=== PATIENT | male | born 1955 | race Caucasian/White ===

== ENCOUNTER → 2016-10-30 | Outpatient (REF) | payer MEDICARE ==
[~2016-10-30] MED LIST: AMBI5TAB PO; ASPI81CH PO; CLAR10CA3 PO; CLON1TAB PO; HYDR-3291 PO; HYDR5TAB59 PO; IBUP200C PO; LEXA1TAB2 PO; LYRI150C PO; METAXALONE PO; OMEP40CA2 PO; OXYC20TA21 PO; PRED5TA PO; TESTPOW5 IM; TIZA4CAP3 PO
== END ==
LOC: M SFHCPLAZ 11:46
PROVIDERS: ATTEND Nurse Practitioner Family
DX: R53.83 Other fatigue (principal); Z53.9 Procedure and treatment not carried out, unspecified reason

== ENCOUNTER → 2016-10-30 | Outpatient (CLI) | payer MEDICARE ==
[2016-10-30 14:23] LABS: FOLATE > 24.0 NG/ML; VITAMIN B12 LEVEL 550 PG/ML
[2016-10-30 14:24] LABS: ANION GAP 7 MEQ/L (8-16); BLOOD UREA NITROGEN 20 MG/DL (7-18); CARBON DIOXIDE LEVEL 36 MEQ/L (21-32); CHLORIDE LEVEL 99 MEQ/L (98-107); CREATININE FOR GFR 1.15 MG/DL (0.70-1.30); FREE T4 1.15 NG/DL (0.76-1.46); GLOMERULAR FILTRATION RATE > 60.0 (>56); GLUCOSE, FASTING 59 MG/DL (70-105); POTASSIUM SERUM 4.7 MEQ/L (3.5-5.1); SODIUM LEVEL 142 MEQ/L (136-145)
== END ==
LOC: M LAB 13:16
PROVIDERS: ATTEND Nurse Practitioner Family
DX: R53.83 Other fatigue (principal); R14.0 Abdominal distension (gaseous); L60.3 Nail dystrophy; Z79.82 Long term (current) use of aspirin; Z79.891 Long term (current) use of opiate analgesic; Z79.899 Other long term (current) drug therapy
CPT/HCPCS: 36415; 80048; 82306; 82607; 82746; 84439; 84443; G0463

== ENCOUNTER → 2016-11-26 | Outpatient (CLI) | payer MEDICARE ==
--- NOTE | 2016-11-30 09:38 | DEXA ---
AP SPINE L1 - L4 1.199 0.0 0.7 LT FEMUR TOTAL 0.848 -1.3 -0.8 RT FEMUR TOTAL 0.824 -1.5 -0.9 TOTAL BODY TOTAL OTHER DUAL FEMUR FRAX* ASSESSMENT Risk factors: Family history of hip fracture, steroids. 10 year probability of fracture Major osteoporotic fracture 29.4 % Hip fracture 3.0 % COMMENTS: Normal bone densitometry of the spine. There is low bone density of the left hip. There is low bone density of the right hip. FOLLOW-UP: Recommendation for the next bone density exam: 2 years. HORTENCIA
== END ==
LOC: M WHC 13:02
PROVIDERS: ATTEND Internal Medicine Endocrinology, Diabetes & Metabolism
DX: Z51.81 Encounter for therapeutic drug level monitoring (principal); Z79.52 Long term (current) use of systemic steroids

== ENCOUNTER → 2017-01-21 | Outpatient (REF) | payer MEDICARE ==
[~2017-01-21] MED LIST changes: +CARV25TA PO; +DESI25TA59 PO; +HYDR-3713 PO; +HYDR-3719 PO; +METH5TA PO; +SKEL-29 PO
[2017-01-21 12:12] LABS: BASO % 0.2 % (0.0-1.0); EOS # 0.1 K/mm3 (0.0-0.50); EOS % 1.1 % (0.0-3.0); LARGE UNSTAINED CELL # 0.1 K/mm3 (0.0-0.4); LARGE UNSTAINED CELL % 0.9 % (0.0-4.0); LYMPH # 1.3 K/mm3 (1.5-4.5); LYMPH % 10.9 % (24.0-44.0); MEAN CORPUSCULAR HEMOGLOBIN 32.6 pg (27.0-33.0); MEAN CORPUSCULAR VOLUME 95.9 fl (80.0-96.0); MONO # 0.6 K/mm3 (0.0-0.8); MONO % 5.6 % (0.0-5.0); NEUTROPHILS # 8.8 K/mm3 (1.8-7.7); NEUTROPHILS % 81.3 % (36.0-66.0); PLATELET COUNT, AUTOMATED 192 k/mm3 (150-450); WHITE BLOOD COUNT 10.9 K/mm3 (4.0-10.0)
[2017-01-21 12:30] LABS: ANION GAP 3 MEQ/L (8-16); BLOOD UREA NITROGEN 21 MG/DL (7-18); CALCIUM LEVEL 8.8 MG/DL (8.5-10.1); CARBON DIOXIDE LEVEL 32 MEQ/L (21-32); CHLORIDE LEVEL 103 MEQ/L (98-107); CREATININE FOR GFR 0.89 MG/DL (0.70-1.30); GLOMERULAR FILTRATION RATE > 60.0 (>56); GLUCOSE, FASTING 96 MG/DL (70-105); POTASSIUM SERUM 4.8 MEQ/L (3.5-5.1); SODIUM LEVEL 138 MEQ/L (136-145)
== END ==
LOC: M SFHCPLAZ 08:11
PROVIDERS: ATTEND Nurse Practitioner Family
DX: G47.33 Obstructive sleep apnea (adult) (pediatric) (principal)
CPT/HCPCS: 36415; 80048; 85025; G0463

== ENCOUNTER → 2017-01-28 | Day surgery (SDC) | payer MEDICARE ==
[~2017-01-28] VITALS: Ht 172.7 cm; Wt 80.3 kg
[~2017-01-28] MED LIST changes: +LIDOCAINE 2% INJ 100 MG/5 ML SDV (FOR ANES.) As Ordered ONE; +LR 1,000 ML IV ONE; +PROPOFOL 200 MG/20 ML VIAL As Ordered ONE
--- NOTE | 2017-01-29 08:23 | RO ---
DATE OF PROCEDURE: 01/28/2017 PREPROCEDURE DIAGNOSIS: Sleep apnea. POSTPROCEDURE DIAGNOSIS: Sleep apnea. PROCEDURE: Drug induced sleep apnea. SURGEON: Dr. Jacobo Reyes. CLAIMS ASSOCIATE: ANESTHESIA: ESTIMATED BLOOD LOSS: Under general anesthesia with Propofol, patient was examined with a flexible fiberoptic nasopharyngoscope. I passed the scope through the nose into the nasopharynx. There was anterior posterior collapse of the nasopharynx. With deeper levels of sleep and with desaturation occurring, the epiglottis started approximately in the posterior wall of the pharynx and there was a bit of collapse of the base of the tongue. With further desaturation, there was more of a circumferential collapse in the hypopharynx. Patient tolerated the procedure well. Patient was transferred to the recovery room in excellent condition.
== END | disposition home or self-care (01) ==
LOC: M SDC 11:37
PROVIDERS: ATTEND Otolaryngology
DX: G47.33 Obstructive sleep apnea (adult) (pediatric) (principal); J34.2 Deviated nasal septum; I10 Essential (primary) hypertension; M54.9 Dorsalgia, unspecified; G89.29 Other chronic pain; I51.9 Heart disease, unspecified; E27.40 Unspecified adrenocortical insufficiency; K21.9 Gastro-esophageal reflux disease without esophagitis; R29.898 Other symptoms and signs involving the musculoskeletal system; F84.0 Autistic disorder; F32.9 Major depressive disorder, single episode, unspecified; Z79.899 Other long term (current) drug therapy; Z79.82 Long term (current) use of aspirin; Z98.890 Other specified postprocedural states

== ENCOUNTER → 2017-02-01 | Outpatient (CLI) | payer MEDICARE ==
[~2017-02-01] MED LIST changes: -LIDOCAINE 2% INJ 100 MG/5 ML SDV (FOR ANES.) As Ordered ONE; -LR 1,000 ML IV ONE; -PROPOFOL 200 MG/20 ML VIAL As Ordered ONE
[2017-02-01 10:41] LABS: ALBUMIN 3.5 GM/DL (3.2-5.2); ALBUMIN/GLOBULIN RATIO 1.17 (1.00-1.93); ALKALINE PHOSPHATASE 57 U/L (45-117); ALT/SGPT 29 U/L (12-78); ANION GAP 2 MEQ/L (8-16); AST/SGOT 12 U/L (15-37); BILIRUBIN,TOTAL 0.9 MG/DL (0.2-1.0); BLOOD UREA NITROGEN 15 MG/DL (7-18); CALCIUM LEVEL 8.4 MG/DL (8.5-10.1); CARBON DIOXIDE LEVEL 35 MEQ/L (21-32); CHLORIDE LEVEL 102 MEQ/L (98-107); GLOMERULAR FILTRATION RATE > 60.0 (>56); GLUCOSE, FASTING 94 MG/DL (70-105); POTASSIUM SERUM 4.6 MEQ/L (3.5-5.1); SODIUM LEVEL 139 MEQ/L (136-145); TOTAL PROTEIN 6.5 GM/DL (6.4-8.2)
== END ==
LOC: M LAB 09:09
DX: M85.80 Other specified disorders of bone density and structure, unspecified site (principal)

== ENCOUNTER → 2017-03-26 | Outpatient (CLI) | payer MEDICARE ==
[2017-03-26 12:27] LABS: ALBUMIN 3.8 GM/DL (3.2-5.2); ALBUMIN/GLOBULIN RATIO 1.23 (1.00-1.93); ALKALINE PHOSPHATASE 47 U/L (45-117); ALT/SGPT 34 U/L (12-78); ANION GAP 2 MEQ/L (8-16); AST/SGOT 18 U/L (15-37); BILIRUBIN,TOTAL 1.1 MG/DL (0.2-1.0); BLOOD UREA NITROGEN 18 MG/DL (7-18); CALCIUM LEVEL 8.8 MG/DL (8.5-10.1); CARBON DIOXIDE LEVEL 37 MEQ/L (21-32); CHLORIDE LEVEL 103 MEQ/L (98-107); CREATININE FOR GFR 1.01 MG/DL (0.70-1.30); GLOMERULAR FILTRATION RATE > 60.0 (>56); GLUCOSE, FASTING 89 MG/DL (70-105); POTASSIUM SERUM 4.7 MEQ/L (3.5-5.1); SODIUM LEVEL 142 MEQ/L (136-145); TOTAL PROTEIN 6.9 GM/DL (6.4-8.2)
== END ==
LOC: M LAB 11:13
DX: M85.80 Other specified disorders of bone density and structure, unspecified site (principal)

== ENCOUNTER → 2017-05-25 | Outpatient (CLI) | payer MEDICARE ==
[~2017-05-25] MED LIST changes: +BACT800T5 PO; -IBUP200C PO; +IBUP200C10 PO; +LISI-542 PO; +LYRI200C PO; +NORC1TAB4 PO; +NORP10TA2 PO; -OXYC20TA21 PO; +OXYC20TA40 PO; +PERC5TAB12 PO; -SKEL-29 PO; +SKEL800T97 PO; +ZOLP10TA2 PO
--- NOTE | 2017-05-25 10:28 | REP ---
CHEST X-RAY: Two views. HISTORY: Sleep apnea. COMPARISON STUDY: December 02 2005. FINDINGS: The lungs are symmetrically aerated and clear. Pleural angles are sharp. Heart size is normal. The aorta is slightly tortuous. Pulmonary vasculature is not increased. IMPRESSION: No active disease. Signed by Augie Orantes MD 05/25/2017 11:07 A
[2017-05-25 12:47] LABS: BASO % 0.3 % (0.0-1.0); EOS % 0.6 % (0.0-3.0); LARGE UNSTAINED CELL # 0.1 K/mm3 (0.0-0.4); LARGE UNSTAINED CELL % 0.9 % (0.0-4.0); LYMPH # 1.5 K/mm3 (1.5-4.5); LYMPH % 16.9 % (24.0-44.0); MEAN CORPUSCULAR HEMOGLOBIN 32.8 pg (27.0-33.0); MEAN CORPUSCULAR HGB CONC 33.3 g/dl (32.0-36.5); MEAN CORPUSCULAR VOLUME 98.4 fl (80.0-96.0); MONO # 0.4 K/mm3 (0.0-0.8); MONO % 4.9 % (0.0-5.0); NEUTROPHILS # 6.6 K/mm3 (1.8-7.7); NEUTROPHILS % 76.4 % (36.0-66.0); PLATELET COUNT, AUTOMATED 204 k/mm3 (150-450); RED CELL DISTRIBUTION WIDTH 12.6 % (11.5-14.5); WHITE BLOOD COUNT 8.6 K/mm3 (4.0-10.0)
[2017-05-25 12:55] LABS: ALBUMIN 3.8 GM/DL (3.2-5.2); ALBUMIN/GLOBULIN RATIO 1.23 (1.00-1.93); ALKALINE PHOSPHATASE 47 U/L (45-117); ALT/SGPT 29 U/L (12-78); ANION GAP 7 MEQ/L (8-16); AST/SGOT 17 U/L (15-37); BILIRUBIN,TOTAL 1.3 MG/DL (0.2-1.0); BLOOD UREA NITROGEN 20 MG/DL (7-18); CALCIUM LEVEL 8.9 MG/DL (8.5-10.1); CARBON DIOXIDE LEVEL 31 MEQ/L (21-32); CHLORIDE LEVEL 104 MEQ/L (98-107); CREATININE FOR GFR 1.18 MG/DL (0.70-1.30); GLOMERULAR FILTRATION RATE > 60.0 (>56); GLUCOSE, FASTING 123 MG/DL (70-105); POTASSIUM SERUM 4.7 MEQ/L (3.5-5.1); SODIUM LEVEL 142 MEQ/L (136-145); TOTAL PROTEIN 6.9 GM/DL (6.4-8.2)
== END ==
LOC: M WUC 09:41
PROVIDERS: ATTEND Nurse Practitioner Family
DX: I10 Essential (primary) hypertension (principal); G47.33 Obstructive sleep apnea (adult) (pediatric)
CPT/HCPCS: 36415; 71020; 80053; 85025; 93005; 96372; G0463; J1885

== ENCOUNTER 2017-05-31 08:42 | Day surgery (SDC) | payer MEDICARE ==
[~2017-05-31] VITALS: Ht 170.2 cm; Wt 82.5 kg
[2017-05-31] VITALS (7 sets, daily range): BP systolic 124–170; BP diastolic 64–87
[~2017-05-31 08:42] MED LIST changes: -BACT800T5 PO; -LYRI200C PO; -NORC1TAB4 PO; -PERC5TAB12 PO; -ZOLP10TA2 PO
[2017-05-31] MEDS ORDERED: LR 1,000 ML IV ONE (09:00)
[2017-05-31] MEDS ORDERED: LIDOCAINE W/EPINEPHRINE 1% 20ML VIAL As Ordered ONE (10:12)
[2017-05-31] MEDS ORDERED: BUPIVACAINE HCL 0.5% 30 ML VIAL As Ordered ONE (10:12)
[2017-05-31] MEDS ORDERED: fentaNYL 100 MCG/2 ML INJECTION (J3010) As Ordered ONE ×2 (10:44→13:04)
[2017-05-31] MEDS ORDERED: MIDAZOLAM INJ 2 MG/2 ML VIAL (J2250) As Ordered ONE (10:44)
[2017-05-31] MEDS ORDERED: PHENYLephrine HCL 500 MCG/5 ML (100MCG/ML) SYRINGE (J2370) As Ordered ONE (11:08)
[2017-05-31] MEDS ORDERED: ePHEDrine SULFATE 25 MG/5 ML(5MG/ML) SYRINGE As Ordered ONE (11:08)
[2017-05-31] MEDS ORDERED: ONDANSETRON 4MG/2ML VIAL (J2405) As Ordered ONE ×2 (11:11→11:49)
[2017-05-31] MEDS ORDERED: dexameTHASONE 4 MG/ML 1ML VIAL (J1100) As Ordered ONE ×2 (11:11→11:49)
[2017-05-31] MEDS ORDERED: HYDROCORTISONE 100 MG/2 ML VIAL (J1720) As Ordered ONE (11:12)
[2017-05-31] MEDS ORDERED: PHENYLEPHRINE INJ 10MG/ML VIAL (J2370) As Ordered ONE (11:49)
[2017-05-31] MEDS ORDERED: DESFLURANE 240 ML INHALANT As Ordered ONE (11:54)
[2017-05-31] MEDS ORDERED: HYDROmorphone HCL 2 MG/ML 1ML VIAL (J1170) As Ordered ONE (12:52)
[2017-05-31] MEDS: fentaNYL 100 MCG/2 ML INJECTION (J3010) IV PRN ×4 (13:05→13:20)
[2017-05-31] MEDS ORDERED: MEPERIDINE INJ 25 MG/ML VIAL (J2175) IV PRN (13:45)
[2017-05-31] MEDS ORDERED: LR 1,000 ML IV SCH (13:45)
[2017-05-31] MEDS ORDERED: ONDANSETRON 4MG/2ML VIAL (J2405) IV PRN ×2 (13:45→20:15)
[2017-05-31] MEDS ORDERED: PERCOCET 5MG/325MG TAB PO PRN (13:45)
[2017-05-31] MEDS ORDERED: METOCLOPRAMIDE INJ 10MG/2ML VIAL (J2765) IV PRN (13:45)
[2017-05-31] MEDS ORDERED: MEPERIDINE INJ 25 MG/ML VIAL (J2175) As Ordered ONE (13:59)
[2017-05-31] MEDS ORDERED: MEPERIDINE INJ 25 MG/ML VIAL (J2175) IV ONE (14:30)
[2017-05-31] MEDS ORDERED: MORPHINE 10 MG/ML 1ML VIAL IV PRN (15:00)
[2017-05-31] MEDS: LR 1,000 ML IV SCH (15:39)
[2017-05-31] MEDS ORDERED: HYDROCORTISONE 5MG TABLET PO SCH (17:00)
[2017-05-31] MEDS: NORCO, ANEXSIA 5/325MG TABLET (HYDROcodone/ACETAMINOPHEN) PO PRN (18:19)
--- NOTE | 2017-05-31 20:18 | RO ---
DATE OF PROCEDURE: 05/31/2017 PREPROCEDURE DIAGNOSIS: Sleep apnea. POSTPROCEDURE DIAGNOSIS: Sleep apnea. OPERATIVE PROCEDURE: Laser epiglottoplasty, lateral pharyngoplasty, hyoid suspension. SURGEON: Jacobo Reyes MD MILLINERY BLOCKER: ANESTHESIA: General. DESCRIPTION OF PROCEDURE: With the patient intubated, the patient prepped and draped in the usual manner, I started first with a lateral pharyngoplasty. A Loza-Leo mouth gag was inserted. The tonsillar area was infiltrated with lidocaine and epinephrine. Using Coblator at a setting of 6 and 4 I removed the tonsils on both sides. Then, I made an incision in the posterior pillar, elevating the posterior pillar flap from the inferior superior. Once that was done then I put a #3-0 Vicryl suture and sutured the posterior pillar muscle flap just posterior to the molar on the maxilla on the left side. The same procedure was performed on the right side. Bleeding was controlled with suction cautery. Once this was done, everything looked very good. There was some papilloma on the uvula which I removed with the Coblator. Ten I removed the Loza-Leo gag. I inserted the laryngoscope using a dental guard using Aquaplast. Once this was done, I positioned it into place so I had a good view of the epiglottis. I put in some pledgets around the tube and laser tube was used during the procedure. Then using CO2 laser setting at 8 drake continuous, I did a wedge excision of the epiglottis approximately 1 cm in diameter. There was some bleeding which was controlled with laser. At the end of the procedure everything looked good and there was no bleeding. The laryngoscope was removed. Then the patient's neck was prepped and draped in the usual manner. I infiltrated with lidocaine and epinephrine. I made and incision over the hyoid and divided skin and subcutaneous tissues. I divided the platyma. I went down to the hyoid bone. I skeletonized the muscle off of the hyoid bone superiorly. Once that was done then I divided the strap muscles in the midline. I then mobilized the tissues over the superior aspect of the thyroid cartilage on both sides. I then put a suture #2-0 Prolene through the thyroid cartilage superiorly, looped it around the hyoid bone and then back down through the thyroid cartilage. This was done on both sides. Ties were placed. There was no bleeding. I closed the wound with #4-0 Vicryl and #5-0 nylon. The patient tolerated the procedure well, was extubated and transferred to the recovery room in excellent condition. HORTENCIA
[2017-05-31] MEDS: oxyCODONE 10 MG CR TAB PO PRN (20:30)
[2017-05-31] MEDS: CARVedilol 12.5 MG TAB PO SCH (20:31)
[2017-05-31] MEDS ORDERED: METHADONE 5 MG TAB (S0109) PO SCH (21:00)
[2017-05-31] MEDS: clonazePAM 0.5 MG TAB PO PRN (22:10)
[2017-06-01] VITALS: BP 161/85
[2017-06-01] MEDS: NORCO, ANEXSIA 5/325MG TABLET (HYDROcodone/ACETAMINOPHEN) PO PRN ×4 (00:09→13:54)
[2017-06-01] MEDS: LR 1,000 ML IV SCH (01:00)
[2017-06-01] MEDS ORDERED: clonazePAM 0.5 MG TAB PO ONE (04:00)
[2017-06-01 04:54] VITALS: BP 161/92
[2017-06-01] MEDS ORDERED: HYDROCORTISONE 10 MG TAB PO SCH (07:30)
[2017-06-01 08:00] VITALS: BP 163/91
[2017-06-01 08:04] VITALS: BP 163/91
[2017-06-01] MEDS: CARVedilol 12.5 MG TAB PO SCH (08:04)
[2017-06-01] MEDS: oxyCODONE 10 MG CR TAB PO PRN (08:16)
[2017-06-01] MEDS ORDERED: LISINOPRIL 5 MG TAB PO SCH (09:00)
[2017-06-01] MEDS ORDERED: ESCITALOPRAM OXALATE 10 MG TAB (LEXAPRO) PO SCH (09:00)
[2017-06-01] MEDS: clonazePAM 0.5 MG TAB PO PRN (10:00)
[2017-06-01 14:24] VITALS: BP 163/91
== END 2017-06-01 14:55 | disposition home or self-care (01) ==
LOC: M SDC 08:42 → M PED 14:30 → M SDC 06-01 14:55
PROVIDERS: ATTEND Otolaryngology
DX: G47.30 Sleep apnea, unspecified (principal)

== ENCOUNTER 2017-06-02 21:20 | Inpatient (IN) | payer MEDICARE ==
[~2017-06-02] VITALS: Ht 170.2 cm; Wt 82.3 kg
[2017-06-02] MEDS ORDERED: HYDROCORTISONE 100 MG/2 ML VIAL (J1720) IV ONE (22:00)
[2017-06-02] MEDS ORDERED: fentaNYL 100 MCG/2 ML INJECTION (J3010) IV ONE (22:00)
[2017-06-02] MEDS ORDERED: NS 1,000 ML IV ONE (22:00)
[2017-06-02] MEDS ORDERED: CLINDAMYCIN 600 MG in APPROPRIATE DILUENT 1 EA IV ONE (22:00)
[2017-06-02] MEDS ORDERED: ACETAMINOPHEN 650 MG SUPP PR ONE (22:00)
--- NOTE | 2017-06-02 22:32 | REP ---
Clinical: Sepsis. Shock. Comparison: 05/25/2017. Findings: The mediastinum and cardiac silhouette are stable and within normal limits for portable technique. The lung whitman are clear without acute consolidation, effusion, or pneumothorax. Skeletal structures are intact. Impression: No acute cardiopulmonary process appreciated. Signed by Carlos Collado MD 06/02/2017 10:23 P
[2017-06-02 22:34] LABS: INR 1.18
[2017-06-02 22:37] LABS: ALBUMIN 3.4 GM/DL (3.2-5.2); ALBUMIN/GLOBULIN RATIO 0.97 (1.00-1.93); ALKALINE PHOSPHATASE 51 U/L (45-117); ALT/SGPT 30 U/L (12-78); ANION GAP 8 MEQ/L (8-16); AST/SGOT 23 U/L (15-37); BILIRUBIN,DIRECT 0.6 MG/DL (0.0-0.2); BILIRUBIN,TOTAL 3.3 MG/DL (0.2-1.0); BLOOD UREA NITROGEN 28 MG/DL (7-18); CALCIUM LEVEL 7.8 MG/DL (8.5-10.1); CARBON DIOXIDE LEVEL 32 MEQ/L (21-32); CHLORIDE LEVEL 101 MEQ/L (98-107); CREATININE FOR GFR 1.54 MG/DL (0.70-1.30); GLOMERULAR FILTRATION RATE 49.5 (>56); GLUCOSE, FASTING 86 MG/DL (70-105); POTASSIUM SERUM 3.8 MEQ/L (3.5-5.1); SODIUM LEVEL 141 MEQ/L (136-145); TOTAL PROTEIN 6.9 GM/DL (6.4-8.2)
[2017-06-02 22:43] LABS: ADD MANUAL DIFFER YES; MEAN CORPUSCULAR HEMOGLOBIN 33.4 pg (27.0-33.0); MEAN CORPUSCULAR HGB CONC 34.7 g/dl (32.0-36.5); MEAN CORPUSCULAR VOLUME 96.1 fl (80.0-96.0); PLATELET COUNT, AUTOMATED 128 k/mm3 (150-450); RED CELL DISTRIBUTION WIDTH 12.6 % (11.5-14.5); WHITE BLOOD COUNT 13.6 K/mm3 (4.0-10.0)
[2017-06-02] MEDS ORDERED: ISOVUE-370 76% 100ML VIAL (Q9967) As Ordered ONE (22:55)
[2017-06-02 23:09] LABS: BANDS 1 % (< 11)
--- NOTE | 2017-06-02 23:40 | REPUSA ---
CT of the soft tissues of the neck . Clinical history: postoperative. Technique: Multiple axial CT images were obtained from the base of the skull to the upper thorax afte r administration of non-ionic intravenous contrast. Coronal and sagittal reconstructions were also ob tained. Findings: Postoperative surgical changes are seen in the anterior cervical soft tissues in the lower cervical region. There is an ill-defined fluid collection anterior to the hyoid bone measuring 2.7 x 2.0 cm. Scattered subcutaneous emphysema is seen in this region. The visualized paranasal sinuses ar e clear. The pterygopalatine fossa, pterygoid plates and pterygoid muscles are unremarkable. The muco sa of the naso- and oropharynx appears unremarkable. The hypopharynx and larynx show no pathology. Th e visualized osseous structures are intact. There is moderate degenerative disc disease at C5/C6 and C6/C7, with small disc osteophyte complexes and disc bulges. The airway is patent. No focal mass is a ppreciated. There is no evidence of lymphadenopathy. The thyroid gland appears unremarkable. Impression: Postoperative changes as described, including subcutaneous emphysema. Ill-defined fluid c ollection anterior to the hyoid bone. This is a nonspecific finding at this time. However, a developi ng abscess cannot be excluded. Follow-up is suggested as clinically indicated.
--- NOTE | 2017-06-02 23:40 | REPUSA ---
CT of the chest Clinical statement: postoperative changes in the neck. Technique: Multiple axial CT images were obtained from the thoracic inlet through the upper abdomen a fter a bolus administration of nonionic intravenous contrast. Coronal and sagittal reconstructions we re also obtained. No comparison is available. Findings: Postsurgical changes in the anterior lower cervical region is again noted, including subcut aneous emphysema and a ill-defined fluid collection anterior to hyoid bone. The pulmonary arteries ar e well-opacified with contrast, with no intraluminal filling defects to suggest embolism. The thoraci c aorta is unremarkable. Thyroid gland is within normal limits. There is no thoracic lymphadenopathy. There are small bilateral pleural effusions and lower lobe atelectasis. Limited imaging of the upper abdomen is unremarkable. There are no suspicious osseous lesions. Impression: 1. Ill-defined fluid collection anterior to the hyoid bone, with surrounding subcutaneous emphysema. This could represent normal postsurgical changes, although a developing abscess cannot completely be excluded. Follow-up is suggested as clinically indicated. 2. Minimal atelectasis/pleural effusion at the lung bases bilaterally. 3. No evidence of pulmonary embolism.
[2017-06-03] MEDS ORDERED: LABETALOL HCL 100 MG/20 ML VIAL IV SCH
[2017-06-03] MEDS: NS 1,000 ML IV SCH ×2 (00:08→12:38)
--- NOTE | 2017-06-03 00:21 | PHACANCOPD ---
PHARMACY VANCOMYCIN DOSING Pt Demographics Demographics Patient Age:61 , Weight:81.700 , Gender: male Adjusted Body Weight Date: 06/03/17, Adjusted Body Weight: [72] Kg Events Past 24 Hours Events Past 24 Hours: NO: Dialysis, Diuretic Therapy, Change in CrCl, Fever, Elevation in WBC, Pending Diagnostics, Pending Procedures, Other Vancomycin Vancomycin Target Ranges: 15-20 mcg/ml Vancomycin Load Y/N: Yes Load Dose Date Time Vancomycin Load Dose: 2000MG Date: 06-03 Time: 0200 Vancomycin Dose Date: 06/03/17. Current Vancomycin Dose: [1000MG Q12H] Intermittent Dosing?: No Labs Labs Item Value Date Time White Blood Count 13.6 K/mm3 H 06/02/172206 Glomerular Filtration Rate 49.5 L 06/02/172206 Creatinine 1.54 MG/DL H 06/02/172206 Blood Urea Nitrogen 28 MG/DL H 06/02/17 220 Vital Signs Label Value Date Time Patient Temperature 103.3 degrees F 06/02/17 2225 Temperature Source Rectal 06/02/17 2225 Micro Microbiology 06/02/17 Blood Culture, Received Pending 06/02/17 Blood Culture, Received Pending 06/02/17 Influenza Virus Type A Antigen - Final, Complete 06/02/17 Influenza Virus Type B Antigen - Final, Complete 06/02/17 Urine Culture, Received Pending Creatinine Clearance Date:06/03/17. Creatinine Clearance: [48]. Pending Labs trough 09 @1300 Assessment and Plan Maintaining Current Dose?: Yes Reason for dose change: No Dose Change Pharmacist Note Pharmacist Note Date: 06/03/17. Pharmacist note:Dosed at 1000mg q12h with a trough ordered for 09 @1300. Will continue to monitor and make adjustments as needed. [facility] Jun 03, 2017 00:21
[2017-06-03] MEDS ORDERED: MORPHINE 2 MG/ML 1ML SYRINGE IV PRN ×2 (00:30→15:00)
--- NOTE | 2017-06-03 00:38 | CR.PDOC ---
[facility] Consultation Consultation DATE OF CONSULTATION: Jun 02, 2017 at 21:20 ATTENDING PHYSICIAN: Dr. Brenna Mayberry REASON FOR CONSULTATION/CHIEF COMPLAINT: Presented to the ER with complaints of neck pain, difficulty breathing and difficulty swallowing. HISTORY OF PRESENT ILLNESS: Patient is a 61 year old male with a PMHx of Adrenal insufficiency ( Dx a few years ago, Follows with Dr. Madden), MANGO (not on CPAP), HTN and chronic RLQ pain (2/2 nerve impingement) who presented to the ER with complaints of neck pain, difficulty breathing and difficulty swallowing. Patient had a recent ENT surgery with Dr. Reyes on Wednesday for correction of his MANGO. After that point he was advised that he was supposed to have stress doses of his hydrocortisone. Patient has noted that he may have had the higher dose medications, but because of the neck swelling and pain associated with swallowing he was unable to take any of the medications. He noted that by Wednesday he had redness and worsening swelling of his neck. He had difficulty with swallowing and difficulty with difficulty with taking in breaths. He had noted a fever of 101.0F at home measured orally, he denied any chills. He noted that he has had a cough, but unable to expectorate because of the pain. He notes some chest pain occurring right down the center of his check every time he drinks or takes anything orally. He denied nausea, vomiting or abdominal pain. Denies constipation, diarrhea or urinary symptoms. Patient was seen and evaluated by ENT, Dr. Brenna Mayberry in the ER. ALLERGIES: Please see below. HOME MEDICATIONS: Please see below. PAST MEDICAL HISTORY: Adrenal insufficiency (Dx a few years ago, Follows with Dr. Madden), MANGO (not on CPAP), HTN and chronic RLQ pain (2/2 nerve impingement) PAST SURGICAL HISTORY: Right inguinal hernia repair Recent ENT procedure for MANGO correction FAMILY HISTORY: - Non-contributory SOCIAL HISTORY: - Denies the use of alcohol, tobacco or illicit drugs - Denies recent travel or sick contacts - Lives with caregiver - Disability, but use to work as a [employer] Worker REVIEW OF SYSTEMS: 10 point review of systems complete; all negative otherwise stated in HPI PHYSICAL EXAMINATION: - Vitals: BP 199/109, HR 122, RR 20, Sat 96%NC2L, Temp 103.3F (Rectally) - General: Lying in bed, No acute distress, No use of accessory muscles of respiration, Speaking in full sentences although speaking slow, AAOx3 - HEENT: PERRLA, EOMI; Diffuse erythema around neck, swelling, and tenderness noted, healing incision noted without drainage - CVS: Tachycardic, Regular rhythm, +S1S2 - Lungs: Fair air entry bilaterally, No appreciable wheezing / rales / rhonchi - Chest: Erythema, swelling and tenderness diffusely across anterior chest wall - Abdomen: Soft, Non-distended, Non-tender, + Bowel sounds x 4 - Extremities: No lower extremity edema, No calf tenderness - Neuro: No focal motor or sensory deficit - Skin: No visible rashes LABORATORY DATA: Please see below. ASSESSMENT/PLAN: Abscess / Cellulitis / Post-surgical complication after recent ENT procedure - Presented with fever, swelling of neck, redness, and difficulty with swallowing and deep breaths - Physical dose not reveal distinct stridor; Area of cellulitis diffusely over anterior chest wall and neck - Positive fever - Leukocytosis of 13.6, No lactic acidosis - CT chest w/ contrast: ill-defined fluid collection anterior to hyoid bone - post-surgical changes vs. developing abscess - CT neck w/ contrast: subcutaneous emphysema, fluid collection anterior to hyoid bone, developing abscess not excluded - Will f/u Blood cultures - Will cover for anaerobic and MRSA with Zosyn and Vancomycin - Will start dexamethasone to reduce inflammation around airway - Will keep in ICU for respiratory monitoring - Strict NPO - Case Discussed with Dr. Brenna Mayberry; will be admitting physician Adrenal insufficiency - Does not appear to be in adrenal crisis at this time - However will c/w Dexamethasone to reduce swelling Acute kidney injury - Cr baseline of 1.18; currently at 1.54 - will check urine electrolytes, UA, urine osmolality - c/w IV fluid hydration with NS Thrombocytopenia - likely 2/2 recent surgery - no evidence of bleeding - will continue to monitor MANGO - Not on CPAP HTN; Accelerated HTN - BP significantly elevated on arrival; possibly 2/2 pain - will c/w appropriate pain control - Will start Labetolol IV Chronic RLQ pain - 2/2 nerve impingement from hernia operation Gastrointestinal prophylaxis - Will start Protonix IV DVT prophylaxis - Will start SCDs - Hold Heparin (re: Thrombocytopenia) Vital Signs/I&O Vital Signs Date Time Temp Pulse Resp B/P (MAP) Pulse Ox O2 Delivery O2 Flow Rate FiO2 06/02/17 23:58 199/109 (139) 06/02/17 23:46 122 96 06/02/17 22:53 18 Room Air 06/02/17 22:25 103.3 Laboratory Data Labs 24H Laboratory Tests 2 06/02/17 22:04: Urine Appearance CLEAR, Urine Color YELLOW, Urine pH 7.0, Urine Specific [place] 1.042, Urine Protein 2+H, Urine Glucose (UA) NEGATIVE, Urine Ketones 2+H , Urine Urobilinogen 2.0H, Urine Bilirubin NEGATIVE, Urine Leukocyte Esterase NEGATIVE, Urine Blood NEGATIVE, Urine Nitrite NEGATIVE, Urine WBC (Auto) 1, Urine RBC (Auto) 0, Urine Hyaline Casts (Auto) 0, Urine Bacteria (Auto) NEGATIVE , Urine Squamous Epithelial Cells 0, Urine Sperm (Auto) 06/02/17 22:06: Lactic Acid Level 1.4 06/02/17 22:07: Neutrophils 94H, Band Neutrophils 1, Lymphocytes (Manual) 4L, Monocytes (Manual ) 1, Platelet Estimate DECREASED, Red Blood Cell Morphology NORMAL, Prothrombin Time 15.2H, Prothromb Time International Ratio 1.18, Activated Partial Thromboplast Time 31.1, Anion Gap 8, Glomerular Filtration Rate 49.5L, Calcium Level 7.8L, Aspartate Amino Transf (AST/SGOT) 23, Alanine Aminotransferase (ALT/ SGPT) 30, Alkaline Phosphatase 51, Total Bilirubin 3.3H, Direct Bilirubin 0.6H, Total Protein 6.9, Albumin 3.4, Albumin/Globulin Ratio 0.97L CBC/BMP Laboratory Tests 06/02/17 22:07 Red Blood Count 4.62, Mean Corpuscular Volume 96.1 H, Mean Corpuscular Hemoglobin 33.4 H, Mean Corpuscular Hemoglobin Concent 34.7, Red Cell Distribution Width 12.6 Microbiology Microbiology 06/02/17 Blood Culture, Received Pending 06/02/17 Blood Culture, Received Pending 06/02/17 Influenza Virus Type A Antigen - Final, Complete 06/02/17 Influenza Virus Type B Antigen - Final, Complete 06/02/17 Urine Culture, Received Pending Allergies Coded Allergies: No Known Allergies (Verified , 06/02/17) Home Medications Scheduled (Aspirin) 81 Mg Chw, 81 MG PO DAILY, (Reported) Carvedilol (Carvedilol) 25 Mg Tab, 25 MG PO BID, (Reported) Desipramine HCl (Norpramin) 10 Mg Tab, 10 MG PO QHS, (Reported) Escitalopram Oxalate (Lexapro) 20 Mg Tab, 20 MG PO DAILY, (Reported) Hydrocortisone Base (Hydrocortisone) 5 Mg Tab, 5 MG PO QPM, (Reported) at 1700 Hydrocortisone Base (Hydrocortisone) 10 Mg Tab, 10 MG PO QAM for daily, ( Reported) Lisinopril (Lisinopril) 5 Mg Tab, 5 MG PO QAM, #90 (Reported) Methadone HCl (Methadone HCl) 5 Mg Tab, 5 MG PO QHS, (Reported) Omeprazole (Omeprazole) 40 Mg Cap, 40 MG PO BID, (Reported) Oxycodone HCl (Oxycontin) 20 Mg Tab, 20 MG PO BID, (Reported) Pregabalin (Lyrica) 150 Mg Cap, 200 MG PO TID, (Reported) Testosterone (Testosterone) 1 Pow Pow, 200 MG IM 1XWK, (Reported) 200mg per 1 ml qweek Scheduled PRN Clonazepam (Clonazepam) 1 Mg Tab, 1 MG PO DAILY PRN for ANXIETY, (Reported) Metaxalone (Skelaxin) 800 Mg Tab, 800 MG PO DAILY PRN for PAIN, (Reported) GALILEA BRITO MD Jun 03, 2017 00:38
[2017-06-03] MEDS ORDERED: LYRI200C PO (00:41)
[2017-06-03] MEDS ORDERED: HYDR-3291 PO (00:41)
[2017-06-03] MEDS ORDERED: PERC5TAB12 PO (00:41)
[2017-06-03] MEDS ORDERED: NORC1TAB4 PO (00:41)
[2017-06-03] MEDS ORDERED: ZOLP10TA2 PO (00:41)
[2017-06-03] MEDS: PIPERACILLIN/TAZOBACTAM SOD 3.375 GM in D5W MINI-BAG PLUS 50 ML IV SCH ×3 (00:45→17:00)
[2017-06-03] MEDS ORDERED: NORP10TA2 PO (00:50)
[2017-06-03] MEDS: VANCOMYCIN HCL 1,000 MG, VIAL MATE ADAPTER 1 EACH in D5W 250 ML IV SCH ×2 (02:00→14:03)
[2017-06-03] MEDS ORDERED: LABETALOL HCL 100 MG/20 ML VIAL IV ONE (02:15)
[2017-06-03] MEDS ORDERED: VANCOMYCIN HCL 1,000 MG, VIAL MATE ADAPTER 1 EACH in D5W 250 ML IV ONE (03:00)
[2017-06-03] MEDS ORDERED: ACETAMINOPHEN 650 MG SUPP As Ordered ONE (03:50)
[2017-06-03] MEDS: ACETAMINOPHEN 650 MG SUPP PR PRN ×3 (03:56→14:04)
[2017-06-03 04:00] VITALS: BP 163/94
[2017-06-03] MEDS ORDERED: fentaNYL 100 MCG/2 ML INJECTION (J3010) IV ONE (06:00)
[2017-06-03 06:01] VITALS: BP 172/90
[2017-06-03] MEDS: LABETALOL HCL 100 MG/20 ML VIAL IV SCH ×4 (06:08→23:16)
[2017-06-03] MEDS: dexameTHASONE 4 MG/ML 1ML VIAL (J1100) IV SCH ×3 (06:09→21:03)
[2017-06-03 08:00] VITALS: BP 131/71
[2017-06-03] MEDS: PANTOPRAZOLE 40MG INJ (PROTONIX) (C9113) IV SCH (08:07)
--- NOTE | 2017-06-03 08:59 | HPE ---
DATE OF ADMISSION: 06/02/2017 CHIEF COMPLAINT: Odynophagia and fever. HISTORY OF PRESENT ILLNESS: Mohan Oliveira is a 61-year-old man who had surgery for obstructive sleep apnea on Wednesday. The patient had a lateral pharyngoplasty laser epiglottoplasty and hyoid suspension. The patient was kept overnight on Wednesday due to some low oxygen saturations. He was discharged home on Wednesday. The patient was brought in by his to the emergency room last night as the patient had has not been able to eat or drink anything since surgery. The patient has also not been able to take his usual medications since Surgery. He has been febrile and noted swelling and redness of the anterior neck. The patient does not seem to be having any problems with shortness of breath or any stridor. He has spit out a small amount of blood a couple of times. There has been no nausea or vomiting. PAST MEDICAL HISTORY: Significant for adrenal insufficiency, obstructive sleep apnea, hypertension, reflex sympathetic dystrophy in both lower extremities, chronic pain in the groin related to hernia repair, depression. PAST SURGICAL HISTORY: Right inguinal hernia repair, surgery for obstructive sleep apnea, as noted in the history of present illness. MEDICATIONS: See the list, which includes: - carvedilol - desipramine - Lexapro - hydrocortisone - Lisinopril - methadone - omeprazole - OxyContin - Lyrica - testosterone - clonazepam - Skelaxin ALLERGIES: No known drug allergies. SOCIAL HISTORY: The patient is a nonsmoker. He does not consume alcohol. FAMILY HISTORY: Noncontributory. REVIEW OF SYSTEMS: As above, additionally, the patient is not complaining of any chest pain or palpitations. PHYSICAL EXAMINATION: Temperature is 102.2, respiratory rate is 25, pulse is 120, last blood pressure is 172/90. The patient is currently on nasal cannula oxygen at 2 liters. GENERAL: The patient appears to be in mild to moderate distress due to pain in his throat. Currently, he is sitting up in bed and he is answering questions appropriately. There is no stridor. HEENT: Normocephalic, atraumatic. Face with no gross facial lesions. No facial nerve asymmetry. Oral cavity and oropharynx with no oropharyngeal lesions. Oropharynx examination is consistent with recent surgery. NECK: There is intact incision line over the hyoid bone. There is cellulitis affecting the anterior neck and spreading out on to the chest. I cannot palpate any specific fluid collections. LABORATORY DATA: White blood cells 13.6, hemoglobin 15.4, hematocrit 44.4, platelets 128,000. Chemistry panel with a creatinine of 1.54. CT scan of the neck and chest were reviewed. The patient has postoperative changes in the free hyoid and oropharyngeal region. There is a small anterior fluid collection consistent with recent surgery. There are changes consistent with cellulitis. ASSESSMENT AND PLAN: Mohan Oliveira is a 61-year-old man with cellulitis of the neck postoperatively. As a complicating factor, he also has adrenal insufficiency and chronic pain. He will be admitted to the intensive care unit (ICU). He will be started on Zosyn and vancomycin per hospitalist recommendation. Hospitalist consultation was obtained and this is appreciated. I will discuss the patient with Dr. Reyes this morning.
[2017-06-03 12:00] VITALS: BP 134/85
[2017-06-03] MEDS: ONDANSETRON 4MG/2ML VIAL (J2405) IV PRN ×2 (14:57→21:03)
[2017-06-03 20:00] VITALS: BP 136/88
[2017-06-03] MEDS: HYDROcodone/APAP LIQUID 7.5-325MG 15ML UDC (LORTAB ELIXIR) PO PRN (22:43)
[2017-06-03] MEDS: MORPHINE 4 MG/ML 1ML SYRINGE IV PRN (23:17)
[2017-06-04] VITALS: BP 137/68
[2017-06-04] MEDS: PIPERACILLIN/TAZOBACTAM SOD 3.375 GM in D5W MINI-BAG PLUS 50 ML IV SCH ×3 (00:22→17:15)
[2017-06-04] MEDS: NS 1,000 ML IV SCH ×2 (01:08→20:23)
[2017-06-04] MEDS: VANCOMYCIN HCL 1,000 MG, VIAL MATE ADAPTER 1 EACH in D5W 250 ML IV SCH ×3 (01:46→21:17)
[2017-06-04] MEDS: ONDANSETRON 4MG/2ML VIAL (J2405) IV PRN (03:26)
[2017-06-04] MEDS: MORPHINE 4 MG/ML 1ML SYRINGE IV PRN ×6 (03:27→21:17)
[2017-06-04 04:00] VITALS: BP 137/83
[2017-06-04 05:23] LABS: EOS # 0.1 K/mm3 (0.0-0.50); EOS % 0.5 % (0.0-3.0); LARGE UNSTAINED CELL # 0.1 K/mm3 (0.0-0.4); LARGE UNSTAINED CELL % 0.4 % (0.0-4.0); LYMPH # 0.4 K/mm3 (1.5-4.5); LYMPH % 1.8 % (24.0-44.0); MEAN CORPUSCULAR HEMOGLOBIN 33.2 pg (27.0-33.0); MONO # 0.5 K/mm3 (0.0-0.8); MONO % 2.6 % (0.0-5.0); NEUTROPHILS # 17.1 K/mm3 (1.8-7.7); NEUTROPHILS % 94.7 % (36.0-66.0); PLATELET COUNT, AUTOMATED 133 k/mm3 (150-450); RED CELL DISTRIBUTION WIDTH 12.4 % (11.5-14.5)
[2017-06-04] MEDS: LABETALOL HCL 100 MG/20 ML VIAL IV SCH ×3 (05:39→17:16)
[2017-06-04] MEDS: dexameTHASONE 4 MG/ML 1ML VIAL (J1100) IV SCH ×3 (05:39→21:17)
[2017-06-04 05:49] LABS: ALBUMIN/GLOBULIN RATIO 0.78 (1.00-1.93); ALKALINE PHOSPHATASE 46 U/L (45-117); ALT/SGPT 23 U/L (12-78); ANION GAP 8 MEQ/L (8-16); AST/SGOT 16 U/L (15-37); BILIRUBIN,TOTAL 1.6 MG/DL (0.2-1.0); BLOOD UREA NITROGEN 18 MG/DL (7-18); CALCIUM LEVEL 7.4 MG/DL (8.5-10.1); CARBON DIOXIDE LEVEL 27 MEQ/L (21-32); CHLORIDE LEVEL 107 MEQ/L (98-107); CREATININE FOR GFR 0.94 MG/DL (0.70-1.30); GLOMERULAR FILTRATION RATE > 60.0 (>56); GLUCOSE, FASTING 144 MG/DL (70-105); MAGNESIUM LEVEL 2.2 MG/DL (1.8-2.4); POTASSIUM SERUM 3.8 MEQ/L (3.5-5.1); SODIUM LEVEL 142 MEQ/L (136-145); TOTAL PROTEIN 5.7 GM/DL (6.4-8.2)
--- NOTE | 2017-06-04 06:03 | ECGEPIP ---
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
[2017-06-04 06:06] LABS: ALBUMIN 2.5 GM/DL (3.2-5.2)
[2017-06-04 08:00] VITALS: BP 148/88
[2017-06-04] MEDS: PANTOPRAZOLE 40MG INJ (PROTONIX) (C9113) IV SCH (08:03)
--- NOTE | 2017-06-04 08:07 | IPNPDOC ---
Date Seen The patient was seen on 06/04/17. Progress Note SUBJECTIVE: Patient is a [61]-year-old man with neck cellulitis. He continues to complain of throat pain. He has been sipping on some liquids and took some liquid lortab last night. He does not feel any of this is truly swallowed as he regurgitates liquids with a large amount of phlegm. OBJECTIVE PHYSICAL EXAMINATION: VITAL SIGNS: Please see below. GENERAL: Patient is is mild to moderate distress secondary to throat pain. Voice normal. No stridor. RESPIRATORY: No respiratory distress. No wheezing. No stridor. NEUROLOGICAL: Oriented and appropriate NECK: There is swelling/cellulitis present on the anterior neck and creeping onto chest. The limit of cellulitis as marked yesterday has not been crossed. LABORATORY DATA: Lab data reviewed. ASSESSMENT AND PLAN: This is a 61-year-old man with neck cellulitis. Day 2 zosyn and vanc PROBLEMS: 1. Neck cellulitis is not spreading. WBC up today. Temp 101.1 at midnight. Continue antibiotics 2. Odynophagia. Will consider placement NGT. VS, I&O, 24H, Fishbone Vital Signs/I&O Vital Signs Date Time Temp Pulse Resp B/P (MAP) Pulse Ox O2 Delivery O2 Flow Rate FiO2 06/04/17 05:39 83 135/78 06/04/17 04:00 98.7 16 91 Room Air 06/03/17 12:00 2.0 I&O- Last 24 Hours up to 6 AM 06/04/17 06:00 Intake Total 1950 ml Output Total 2175 ml Balance -225 ml Laboratory Data 24H LABS Laboratory Tests 2 06/03/17 09:56: Total Creatine Kinase 97, Creatine Kinase MB 1.0, Creatine Kinase MB Relative Index 1.03, Troponin I < 0.02 06/04/17 05:07: White Blood Count 18.0H, Red Blood Count 4.04L, Hemoglobin 13.4#L, Hematocrit 38.4L, Mean Corpuscular Volume 95.0, Mean Corpuscular Hemoglobin 33.2H, Mean Corpuscular Hemoglobin Concent 35.0, Red Cell Distribution Width 12.4, Platelet Count 133L, Neutrophils (%) (Auto) 94.7H, Lymphocytes (%) (Auto) 1.8L, Monocytes (%) (Auto) 2.6, Eosinophils (%) (Auto) 0.5, Basophils (%) (Auto) 0.0, Neutrophils # (Auto) 17.1H, Lymphocytes # (Auto) 0.4L, Monocytes # (Auto) 0.5, Eosinophils # (Auto) 0.1, Basophils # (Auto) 0.0, Large Unclassified Cells % 0.4 , Large Unclassified Cells # 0.1, Anion Gap 8, Glomerular Filtration Rate > 60.0 , Blood Urea Nitrogen 18, Creatinine 0.94, Sodium Level 142, Potassium Level 3.8 , Chloride Level 107, Carbon Dioxide Level 27, Calcium Level 7.4L, Aspartate Amino Transf (AST/SGOT) 16, Alanine Aminotransferase (ALT/SGPT) 23, Alkaline Phosphatase 46, Total Bilirubin 1.6#H, Total Protein 5.7L, Albumin 2.5#L, Magnesium Level 2.2, Albumin/Globulin Ratio 0.78L CBC/BMP Laboratory Tests 06/04/17 05:07 Red Blood Count 4.04 L, Mean Corpuscular Volume 95.0, Mean Corpuscular Hemoglobin 33.2 H, Mean Corpuscular Hemoglobin Concent 35.0, Red Cell Distribution Width 12.4, Neutrophils (%) (Auto) 94.7 H, Lymphocytes (%) (Auto) 1.8 L, Monocytes (%) (Auto) 2.6, Eosinophils (%) (Auto) 0.5, Basophils (%) (Auto ) 0.0, Neutrophils # (Auto) 17.1 H, Lymphocytes # (Auto) 0.4 L, Monocytes # ( Auto) 0.5, Eosinophils # (Auto) 0.1, Basophils # (Auto) 0.0, Calcium Level 7.4 L , Aspartate Amino Transf (AST/SGOT) 16, Alanine Aminotransferase (ALT/SGPT) 23, Alkaline Phosphatase 46, Total Bilirubin 1.6 #H, Total Protein 5.7 L, Albumin 2.5 #L Microbiology Microbiology 06/02/17 Blood Culture, Received Pending 06/02/17 Blood Culture, Received Pending 06/02/17 Influenza Virus Type A Antigen - Final, Complete 06/02/17 Influenza Virus Type B Antigen - Final, Complete 06/02/17 Urine Culture, Received Pending SHAMIR SALGADO MD Jun 04, 2017 08:07
--- NOTE | 2017-06-04 10:48 | IPNPDOC ---
Subjective Date Seen The patient was seen on 06/04/17. Subjective Chief Complaint/HPI The patient is a 61-year-old male admitted with a reason for visit of Cellulitis Of Neck. Events since last encounter Patient c/o pain in anterior neck with difficulty swallowing secondary to pain. No difficulty breathing Constitutional: Denies: Chills, Fever Pulmonary: Denies: Dyspnea, Cough Cardiovascular: Denies: Chest Pain, Palpitations Gastrointestinal: Denies: Nausea, Vomiting, Abdominal Pain, Diarrhea, Constipation Objective Physical Examination General Exam: Positive: Alert, Mild Distress (looks uncomfortable due to neck pain, but breathing comfortably without stridor) Neck Exam: Positive: Other (anterior neck with swelling warmth and erythema surrounding horizontal sutures. ERythema extends to lateral aspect of neck Travis ndonto thorax at level of 2 nd ribs) Chest Exam: Positive: Clear to auscultation, Normal air movement Heart Exam: Positive: Rate Normal, Regular Rhythm Abdomen Exam: Positive: Normal bowel sounds, Soft, Negative: Tenderness Male Exam: Negative: Edema Assessment /Plan Problems (1) Cellulitis, neck Status: Acute Problem Text: Per ENT - On Vanco and Zosyn REsp status remains stable Has significant Odynophagia - getting IVF. May need NG tube (2) RSD (reflex sympathetic dystrophy) Status: Chronic Problem Text: Normally on Methadone, Oxycodone, Hydrocodone, Skelaxin, Lyrica and Disipramine - per pain clinic Getting Morphine and Hydrocodone here, but still with significant pain in neck/ throat May need pain clinic consult (3) Chronic pain Problem Text: see above (4) Depression Status: Chronic Response to Treatment: Stable Problem Text: cont. Lexapro (5) HTN (hypertension) Status: Chronic Response to Treatment: Stable Problem Text: Normally on Lisinopril, but getting IV Labetalol here for now (6) MANGO (obstructive sleep apnea) Status: Chronic Response to Treatment: Stable Problem Text: on CPAP as outpatient - continue here at usual home settings Plan/VTE VTE Prophylaxis Ordered?: No (D/C ENT if SQ heparin ok to order) VS, I&O, 24H, Fishbone Vital Signs/I&O Vital Signs Date Time Temp Pulse Resp B/P (MAP) Pulse Ox O2 Delivery O2 Flow Rate FiO2 06/04/17 08:05 16 Room Air 06/04/17 08:00 95 06/04/17 08:00 98.9 93 148/88 (108) 06/03/17 12:00 2.0 I&O- Last 24 Hours up to 6 AM 06/04/17 06:00 Intake Total 1950 ml Output Total 2175 ml Balance -225 ml Laboratory Data 24H LABS Laboratory Tests 2 06/04/17 05:07: White Blood Count 18.0H, Red Blood Count 4.04L, Hemoglobin 13.4#L, Hematocrit 38.4L, Mean Corpuscular Volume 95.0, Mean Corpuscular Hemoglobin 33.2H, Mean Corpuscular Hemoglobin Concent 35.0, Red Cell Distribution Width 12.4, Platelet Count 133L, Neutrophils (%) (Auto) 94.7H, Lymphocytes (%) (Auto) 1.8L, Monocytes (%) (Auto) 2.6, Eosinophils (%) (Auto) 0.5, Basophils (%) (Auto) 0.0, Neutrophils # (Auto) 17.1H, Lymphocytes # (Auto) 0.4L, Monocytes # (Auto) 0.5, Eosinophils # (Auto) 0.1, Basophils # (Auto) 0.0, Large Unclassified Cells % 0.4 , Large Unclassified Cells # 0.1, Anion Gap 8, Glomerular Filtration Rate > 60.0 , Blood Urea Nitrogen 18, Creatinine 0.94, Sodium Level 142, Potassium Level 3.8 , Chloride Level 107, Carbon Dioxide Level 27, Calcium Level 7.4L, Aspartate Amino Transf (AST/SGOT) 16, Alanine Aminotransferase (ALT/SGPT) 23, Alkaline Phosphatase 46, Total Bilirubin 1.6#H, Total Protein 5.7L, Albumin 2.5#L, Magnesium Level 2.2, Albumin/Globulin Ratio 0.78L CBC/BMP Laboratory Tests 06/04/17 05:07 Red Blood Count 4.04 L, Mean Corpuscular Volume 95.0, Mean Corpuscular Hemoglobin 33.2 H, Mean Corpuscular Hemoglobin Concent 35.0, Red Cell Distribution Width 12.4, Neutrophils (%) (Auto) 94.7 H, Lymphocytes (%) (Auto) 1.8 L, Monocytes (%) (Auto) 2.6, Eosinophils (%) (Auto) 0.5, Basophils (%) (Auto ) 0.0, Neutrophils # (Auto) 17.1 H, Lymphocytes # (Auto) 0.4 L, Monocytes # ( Auto) 0.5, Eosinophils # (Auto) 0.1, Basophils # (Auto) 0.0, Calcium Level 7.4 L , Aspartate Amino Transf (AST/SGOT) 16, Alanine Aminotransferase (ALT/SGPT) 23, Alkaline Phosphatase 46, Total Bilirubin 1.6 #H, Total Protein 5.7 L, Albumin 2.5 #L Microbiology Microbiology 06/02/17 Blood Culture, Received Pending 06/02/17 Blood Culture, Received Pending 06/02/17 Influenza Virus Type A Antigen - Final, Complete 06/02/17 Influenza Virus Type B Antigen - Final, Complete 06/02/17 Urine Culture, Received Pending SRINATH VARELA PA-C Jun 04, 2017 10:48
[2017-06-04] MEDS ORDERED: LIDOCAINE W/EPINEPHRINE 1% 20ML VIAL As Ordered ONE (11:44)
[2017-06-04] MEDS ORDERED: MIDAZOLAM INJ 2 MG/2 ML VIAL (J2250) As Ordered ONE (12:47)
[2017-06-04] MEDS ORDERED: fentaNYL 100 MCG/2 ML INJECTION (J3010) As Ordered ONE ×2 (12:47→13:20)
[2017-06-04] MEDS ORDERED: dexameTHASONE 4 MG/ML 1ML VIAL (J1100) As Ordered ONE (12:56)
[2017-06-04] MEDS ORDERED: PROPOFOL 200 MG/20 ML VIAL As Ordered ONE (12:56)
[2017-06-04] MEDS ORDERED: LIDOCAINE 2% INJ 100 MG/5 ML SDV (FOR ANES.) As Ordered ONE (12:57)
[2017-06-04] MEDS ORDERED: SUCCINYLCHOLINE 100 MG/5 ML SYRINGE (J0330) As Ordered ONE (12:57)
[2017-06-04] MEDS ORDERED: ONDANSETRON 4MG/2ML VIAL (J2405) As Ordered ONE (12:58)
[2017-06-04] MEDS ORDERED: HYDROmorphone HCL 2 MG/ML 1ML VIAL (J1170) As Ordered ONE (13:12)
[2017-06-04] MEDS: fentaNYL 100 MCG/2 ML INJECTION (J3010) IV PRN ×4 (13:22→13:37)
[2017-06-04 14:00] VITALS: BP 151/92
[2017-06-04] MEDS ORDERED: PERCOCET 5MG/325MG TAB PO PRN (14:15)
[2017-06-04] MEDS ORDERED: METOCLOPRAMIDE INJ 10MG/2ML VIAL (J2765) IV PRN (14:15)
[2017-06-04] MEDS ORDERED: LR 1,000 ML IV SCH (14:15)
[2017-06-04] MEDS ORDERED: ONDANSETRON 4MG/2ML VIAL (J2405) IV PRN (14:15)
[2017-06-04] MEDS ORDERED: MEPERIDINE INJ 25 MG/ML VIAL (J2175) IV PRN (14:15)
--- NOTE | 2017-06-04 15:30 | PHACANCOPD ---
PHARMACY VANCOMYCIN DOSING Pt Demographics Demographics Patient Age:61 , Weight:82.400 , Gender: male Adjusted Body Weight Date: 06/03/17, Adjusted Body Weight: [NA] Kg Events Past 24 Hours Events Past 24 Hours: YES: Change in CrCl, Fever, Elevation in WBC, NO: Dialysis, Diuretic Therapy, Pending Diagnostics, Pending Procedures, Other Vancomycin Vancomycin indication: neck cellulitis Vancomycin Target Ranges: 15-20 mcg/ml Vancomycin Load Y/N: Yes Load Dose Date Time Vancomycin Load Dose: 2000MG Date: 06-03 Time: 0200 Vancomycin Dose Date: 06/04/17. Current Vancomycin Dose: [1g IV q8h @14] Date: 06/03/17. Current Vancomycin Dose: [1000MG Q12H] Intermittent Dosing?: No Labs Labs Item Value Date Time White Blood Count 13.6 K/mm3 H 06/02/17 2207 White Blood Count 18.0 K/mm3 H 06/04/17 0507 Vancomycin Level Trough 6.9 UG/ML L 06/04/17 1430 Creatinine 1.54 MG/DL H 06/02/17 2207 Creatinine 0.94 MG/DL 06/04/17 0507 Vital Signs Label Value Date Time Patient Temperature 101.1 degrees F 06/04/17 0000 Temperature Source Temporal 06/04/17 0000 Micro Microbiology 06/02/17 Blood Culture, Received Pending 06/02/17 Blood Culture, Received Pending 06/02/17 Influenza Virus Type A Antigen - Final, Complete 06/02/17 Influenza Virus Type B Antigen - Final, Complete 06/02/17 Urine Culture, Received Pending 06/04/17 Gram Stain, Received Pending 06/04/17 Wound Culture, Received Pending 06/04/17 Anaerobic Culture, Received Pending Creatinine Clearance Date:06/04/17. Creatinine Clearance: [79 ml/min]. Date:06/03/17. Creatinine Clearance: [48]. Assessment and Plan Maintaining Current Dose?: No Reason for dose change: Trough too low Pharmacist Note Pharmacist Note Date: 06/04/17. Pharmacist note: vanco trough was drawn 1.5hrs late before the 4th dose and came back at 6.9. I have changed his dosing to 1g IV q8h. Pt had an I&D done on his neck today. WBCs are increased from yesterday, Tmax = 101.1 overnight. SCr has significantly improved. Wound and blood cultures are pending. We will continue to monitor and make adjustments as necessary. René Pires.Fazal. Jun 04, 2017 15:30
[2017-06-04 16:00] VITALS: BP 160/98
[2017-06-04 20:00] VITALS: BP 142/82
--- NOTE | 2017-06-04 21:46 | RO ---
DATE OF PROCEDURE: 06/04/2017 PREPROCEDURE DIAGNOSIS: Neck cellulitis, neck fluid collection. POSTPROCEDURE DIAGNOSIS: Neck cellulitis, neck abscess. PROCEDURE: Drainage of neck abscess. SURGEON: Dr. Lizbet Mayberry ANSWERER: ANESTHESIA: General. ESTIMATED BLOOD LOSS: 5 mL. COMPLICATIONS: None. HISTORY OF THE PRESENT ILLNESS: Mohan Oliveira is a 61-year-old man status post hyoid suspension on Wednesday. The patient has been readmitted to the hospital with cellulitis of the neck. He has significant neck swelling and the plan today is to open up the incision and drain any fluid collection. DESCRIPTION OF PROCEDURE: The patient was taken to the operating room at which time general endotracheal anesthesia was established by anesthesia staff. The neck was prepped and draped in the usual sterile fashion. The previous was opened and approximately 8-10 mL of purulent material was released from the neck. This was suctioned out and the wound was irrigated with normal saline. A quarter inch Vel drain was placed into the wound and quarter inch Iodoform packing was also placed into the wound. The procedure was completed at this point. The patient was turned back over to anesthesia staff for safe extubation and taken to the recovery room in good condition.
[2017-06-05] VITALS (8 sets, daily range): BP systolic 139–175; BP diastolic 72–98
[2017-06-05] MEDS: PIPERACILLIN/TAZOBACTAM SOD 3.375 GM in D5W MINI-BAG PLUS 50 ML IV SCH ×3 (00:20→16:43)
[2017-06-05] MEDS: MORPHINE 4 MG/ML 1ML SYRINGE IV PRN ×4 (00:22→15:35)
[2017-06-05 04:36] LABS: BASO % 0.1 % (0.0-1.0); EOS # 0.1 K/mm3 (0.0-0.50); EOS % 0.3 % (0.0-3.0); LARGE UNSTAINED CELL # 0.1 K/mm3 (0.0-0.4); LARGE UNSTAINED CELL % 0.5 % (0.0-4.0); LYMPH # 0.5 K/mm3 (1.5-4.5); LYMPH % 2.4 % (24.0-44.0); MEAN CORPUSCULAR HEMOGLOBIN 32.5 pg (27.0-33.0); MEAN CORPUSCULAR HGB CONC 34.2 g/dl (32.0-36.5); MEAN CORPUSCULAR VOLUME 94.8 fl (80.0-96.0); MONO # 0.7 K/mm3 (0.0-0.8); MONO % 3.7 % (0.0-5.0); NEUTROPHILS # 16.6 K/mm3 (1.8-7.7); PLATELET COUNT, AUTOMATED 172 k/mm3 (150-450); RED CELL DISTRIBUTION WIDTH 12.3 % (11.5-14.5); WHITE BLOOD COUNT 17.9 K/mm3 (4.0-10.0)
[2017-06-05 04:59] LABS: ALBUMIN 2.4 GM/DL (3.2-5.2); ALBUMIN/GLOBULIN RATIO 0.59 (1.00-1.93); ALKALINE PHOSPHATASE 48 U/L (45-117); ALT/SGPT 21 U/L (12-78); ANION GAP 7 MEQ/L (8-16); AST/SGOT 7 U/L (15-37); BILIRUBIN,TOTAL 1.1 MG/DL (0.2-1.0); BLOOD UREA NITROGEN 22 MG/DL (7-18); CALCIUM LEVEL 7.9 MG/DL (8.5-10.1); CARBON DIOXIDE LEVEL 30 MEQ/L (21-32); CHLORIDE LEVEL 107 MEQ/L (98-107); CREATININE FOR GFR 1.09 MG/DL (0.70-1.30); GLOMERULAR FILTRATION RATE > 60.0 (>56); GLUCOSE, FASTING 137 MG/DL (70-105); MAGNESIUM LEVEL 2.2 MG/DL (1.8-2.4); POTASSIUM SERUM 3.8 MEQ/L (3.5-5.1); SODIUM LEVEL 144 MEQ/L (136-145); TOTAL PROTEIN 6.5 GM/DL (6.4-8.2)
[2017-06-05] MEDS: dexameTHASONE 4 MG/ML 1ML VIAL (J1100) IV SCH ×3 (05:34→21:59)
[2017-06-05] MEDS: LABETALOL HCL 100 MG/20 ML VIAL IV SCH ×3 (05:34→11:27)
[2017-06-05] MEDS: VANCOMYCIN HCL 1,000 MG, VIAL MATE ADAPTER 1 EACH in D5W 250 ML IV SCH ×3 (05:34→21:59)
[2017-06-05] MEDS: HYDROcodone/APAP LIQUID 7.5-325MG 15ML UDC (LORTAB ELIXIR) PO PRN ×3 (06:01→22:00)
[2017-06-05] MEDS: PANTOPRAZOLE 40MG INJ (PROTONIX) (C9113) IV SCH (08:46)
[2017-06-05] MEDS: NS 1,000 ML IV SCH ×2 (14:38→15:35)
--- NOTE | 2017-06-05 15:27 | IPN ---
DATE OF SERVICE: 06/05/2017 HISTORY OF PRESENT ILLNESS: Mohan Oliveira is a 61-year-old man who is postop day #1 form drainage of neck abscess. He has been in the hospital since Wednesday for neck cellulitis. The patient is doing much better this morning. He feels like his pain is much reduced. He is tolerating clear liquids. Overall he is feeling better. His T-max was 99.5 overnight. PHYSICAL EXAMINATION: Respiratory rate 17, last blood pressure 146/78. His saturations are 96% on room air. GENERAL: The patient is in no acute distress. He is sitting up in a chair. His voice is normal. There is no stridor. NECK: The gauze packing was removed from the wound. The [place] drain is still in place. There is still cellulitis on the anterior neck. It does appear to be less intense. It appears to be fading. LABS: White blood cell 17.9, hemoglobin 13.1, hematocrit 38.3, platelets 172,000. ASSESSMENT/PLAN: Mohan Oliveira is a 61-year-old man with neck cellulitis, which is improving. Neck abscess has been drained. The patient can move to regular medical/surgical bed today. He wishes to remain in a clear liquid diet and he wishes to remain on his current pain control regimen. Possible discharge home tomorrow.
--- NOTE | 2017-06-05 17:51 | IPNPDOC ---
Subjective Date Seen The patient was seen on 06/05/17. Subjective Chief Complaint/HPI The patient is a 61-year-old male admitted with a reason for visit of Cellulitis Of Neck. Events since last encounter Mohan reports he is in quite a bit of pain still. He does have a clear liquid diet and has been trying to get some fluids in and keep them down. Constitutional: Denies: Fever ENT: Reports: Sore Throat Pulmonary: Denies: Cough Cardiovascular: Denies: Chest Pain, Palpitations Genitourinary: Denies: Dysuria Objective Physical Examination General Exam: Positive: Alert, Mild Distress (looks uncomfortable due to neck pain, but breathing comfortably without stridor) Eye Exam: Positive: Conjunctiva & lids normal, Negative: Sclera icteric ENT Exam: Positive: Mucous membr. moist/pink Neck Exam: Positive: Other (the erythema on his neck and chest wall seems to be fading based on previous descriptions. He has a drain in his anterior neck and there is a small amount of pus and serosanguineous fluid noted on the bandage) Chest Exam: Positive: Clear to auscultation, Normal air movement Heart Exam: Positive: Rate Normal, Regular Rhythm Abdomen Exam: Positive: Normal bowel sounds, Soft, Negative: Tenderness Extremity Exam: Negative: Edema Neuro Exam: Positive: Normal Speech Psych Exam: Positive: Mood NL, Oriented x 3 Assessment /Plan Problems (1) Cellulitis, neck Status: Acute Response to Treatment: Improving Discussed With: Patient Problem Text: He's on Vanco and Zosyn. ENT is following/managing this. (2) RSD (reflex sympathetic dystrophy) Status: Chronic Problem Text: Normally on Methadone, Oxycodone, Hydrocodone, Skelaxin, Lyrica and Disipramine - per pain clinic Getting Morphine and Hydrocodone here, but still with significant pain in neck/ throat. He reports it was better at one point, but he is hurting again at this point in the day. (3) Chronic pain Problem Text: see above (4) Depression Status: Chronic Response to Treatment: Stable Problem Text: cont. Lexapro (5) HTN (hypertension) Status: Chronic Response to Treatment: Stable Problem Text: He is usually on lisinopril and Coreg. He had been getting labetalol IV while he was in the ICU. On this floor he cannot get the IV labetalol. I will restart his usual dose of Coreg and lisinopril, we'll monitor. (6) MANGO (obstructive sleep apnea) Status: Chronic Response to Treatment: Stable Problem Text: on CPAP as outpatient - continue here at usual home settings Plan/VTE VTE Prophylaxis Ordered?: Yes (D/C ENT if SQ heparin ok to order) VTE Exclusion Pharmacological: Bleeding Risk (SCD and TEDs) VS, I&O, 24H, Fishbone Vital Signs/I&O Vital Signs Date Time Temp Pulse Resp B/P (MAP) Pulse Ox O2 Delivery O2 Flow Rate FiO2 06/05/17 16:48 175/98 (123) 06/05/17 15:45 18 Room Air 06/05/17 15:00 99.3 69 99 06/03/17 12:00 2.0 I&O- Last 24 Hours up to 6 AM 06/05/17 06:00 Intake Total 3440 ml Output Total 1730 ml Balance 1710 ml Laboratory Data 24H LABS Laboratory Tests 2 06/05/17 04:22: White Blood Count 17.9H, Red Blood Count 4.04L, Hemoglobin 13.1L, Hematocrit 38.3L, Mean Corpuscular Volume 94.8, Mean Corpuscular Hemoglobin 32.5, Mean Corpuscular Hemoglobin Concent 34.2, Red Cell Distribution Width 12.3, Platelet Count 172, Neutrophils (%) (Auto) 93.0H, Lymphocytes (%) (Auto) 2.4L, Monocytes (%) (Auto) 3.7, Eosinophils (%) (Auto) 0.3, Basophils (%) (Auto) 0.1, Neutrophils # (Auto) 16.6H, Lymphocytes # (Auto) 0.5L, Monocytes # (Auto) 0.7, Eosinophils # (Auto) 0.1, Basophils # (Auto) 0.0, Large Unclassified Cells % 0.5 , Large Unclassified Cells # 0.1, Anion Gap 7L, Glomerular Filtration Rate > 60.0, Blood Urea Nitrogen 22H, Creatinine 1.09, Sodium Level 144, Potassium Level 3.8, Chloride Level 107, Carbon Dioxide Level 30, Calcium Level 7.9L, Aspartate Amino Transf (AST/SGOT) 7L, Alanine Aminotransferase (ALT/SGPT) 21, Alkaline Phosphatase 48, Total Bilirubin 1.1H, Total Protein 6.5, Albumin 2.4L, Magnesium Level 2.2, Albumin/Globulin Ratio 0.59L 06/05/17 10:00: Vancomycin Level Trough 18.6 CBC/BMP Laboratory Tests 06/05/17 04:22 Red Blood Count 4.04 L, Mean Corpuscular Volume 94.8, Mean Corpuscular Hemoglobin 32.5, Mean Corpuscular Hemoglobin Concent 34.2, Red Cell Distribution Width 12.3, Neutrophils (%) (Auto) 93.0 H, Lymphocytes (%) (Auto) 2.4 L, Monocytes (%) (Auto) 3.7, Eosinophils (%) (Auto) 0.3, Basophils (%) (Auto ) 0.1, Neutrophils # (Auto) 16.6 H, Lymphocytes # (Auto) 0.5 L, Monocytes # ( Auto) 0.7, Eosinophils # (Auto) 0.1, Basophils # (Auto) 0.0, Calcium Level 7.9 L , Aspartate Amino Transf (AST/SGOT) 7 L, Alanine Aminotransferase (ALT/SGPT) 21 , Alkaline Phosphatase 48, Total Bilirubin 1.1 H, Total Protein 6.5, Albumin 2.4 L Microbiology Microbiology 06/02/17 Blood Culture, Received Pending 06/02/17 Blood Culture, Received Pending 06/02/17 Influenza Virus Type A Antigen - Final, Complete 06/02/17 Influenza Virus Type B Antigen - Final, Complete 06/02/17 Urine Culture - Final, Complete 06/04/17 Gram Stain - Final, Resulted 06/04/17 Wound Culture, Resulted Pending 06/04/17 Anaerobic Culture, Resulted Pending Yousif Martines MD Jun 05, 2017 17:51
[2017-06-05] MEDS: LISINOPRIL 5 MG TAB PO SCH (18:07)
[2017-06-05] MEDS: CARVedilol 12.5 MG TAB PO SCH (18:07)
[2017-06-05] MEDS: ONDANSETRON 4MG/2ML VIAL (J2405) IV PRN (22:52)
[2017-06-06] VITALS: BP 150/88
[2017-06-06] MEDS: PIPERACILLIN/TAZOBACTAM SOD 3.375 GM in D5W MINI-BAG PLUS 50 ML IV SCH ×2 (01:10→08:40)
[2017-06-06] MEDS: HYDROcodone/APAP LIQUID 7.5-325MG 15ML UDC (LORTAB ELIXIR) PO PRN (02:53)
[2017-06-06] MEDS: MORPHINE 4 MG/ML 1ML SYRINGE IV PRN ×2 (03:03→08:40)
[2017-06-06] MEDS: NS 1,000 ML IV SCH ×2 (03:08→08:40)
[2017-06-06 04:00] VITALS: BP 153/77
[2017-06-06] MEDS ORDERED: ONDANSETRON 4MG/2ML VIAL (J2405) IV PRN (05:00)
[2017-06-06] MEDS: dexameTHASONE 4 MG/ML 1ML VIAL (J1100) IV SCH ×2 (05:08→13:31)
[2017-06-06 05:31] LABS: BASO % 0.1 % (0.0-1.0); EOS % 0.4 % (0.0-3.0); LARGE UNSTAINED CELL # 0.1 K/mm3 (0.0-0.4); LARGE UNSTAINED CELL % 0.5 % (0.0-4.0); LYMPH # 0.6 K/mm3 (1.5-4.5); LYMPH % 3.7 % (24.0-44.0); MEAN CORPUSCULAR HEMOGLOBIN 32.2 pg (27.0-33.0); MEAN CORPUSCULAR VOLUME 94.9 fl (80.0-96.0); MONO # 0.7 K/mm3 (0.0-0.8); MONO % 4.8 % (0.0-5.0); NEUTROPHILS # 12.1 K/mm3 (1.8-7.7); NEUTROPHILS % 90.5 % (36.0-66.0); PLATELET COUNT, AUTOMATED 198 k/mm3 (150-450); RED CELL DISTRIBUTION WIDTH 12.3 % (11.5-14.5); WHITE BLOOD COUNT 13.4 K/mm3 (4.0-10.0)
[2017-06-06 05:59] LABS: ALBUMIN 2.5 GM/DL (3.2-5.2); ALBUMIN/GLOBULIN RATIO 0.64 (1.00-1.93); ALKALINE PHOSPHATASE 43 U/L (45-117); ALT/SGPT 22 U/L (12-78); ANION GAP 9 MEQ/L (8-16); AST/SGOT 10 U/L (15-37); BILIRUBIN,TOTAL 0.9 MG/DL (0.2-1.0); BLOOD UREA NITROGEN 21 MG/DL (7-18); CALCIUM LEVEL 8.2 MG/DL (8.5-10.1); CARBON DIOXIDE LEVEL 27 MEQ/L (21-32); CHLORIDE LEVEL 109 MEQ/L (98-107); CREATININE FOR GFR 0.95 MG/DL (0.70-1.30); GLOMERULAR FILTRATION RATE > 60.0 (>56); GLUCOSE, FASTING 133 MG/DL (70-105); POTASSIUM SERUM 3.6 MEQ/L (3.5-5.1); SODIUM LEVEL 145 MEQ/L (136-145); TOTAL PROTEIN 6.4 GM/DL (6.4-8.2)
--- NOTE | 2017-06-06 06:04 | PHACANCOPD ---
PHARMACY VANCOMYCIN DOSING Pt Demographics Demographics Patient Age:61 , Weight:79.800 , Gender: male Adjusted Body Weight Date: 06/03/17, Adjusted Body Weight: [NA] Kg Events Past 24 Hours Events Past 24 Hours: NO: Dialysis, Diuretic Therapy, Change in CrCl, Fever, Elevation in WBC, Pending Diagnostics, Pending Procedures, Other Vancomycin Vancomycin indication: neck cellulitis Vancomycin Target Ranges: 15-20 mcg/ml Vancomycin Load Y/N: Yes Load Dose Date Time Vancomycin Load Dose: 2000MG Date: 06-03 Time: 0200 Vancomycin Dose Date: 06/04/17. Current Vancomycin Dose: [1g IV q8h @14] Date: 06/03/17. Current Vancomycin Dose: [1000MG Q12H] Intermittent Dosing?: No Labs Labs Item Value Date Time White Blood Count 13.4 K/mm3 H 06/06/17 0510 Creatinine 0.95 MG/DL 06/06/17 0510 Blood Urea Nitrogen 21 MG/DL H 06/06/17 0510 Vital Signs Label Value Date Time Patient Temperature 99.2 degrees F 06/06/17 0400 Temperature Source Temporal 06/06/17 0400 Micro Microbiology 06/02/17 Blood Culture - Preliminary, Resulted No Growth after 72 hours. All specime... 06/02/17 Blood Culture - Preliminary, Resulted No Growth after 72 hours. All specime... 06/02/17 Influenza Virus Type A Antigen - Final, Complete 06/02/17 Influenza Virus Type B Antigen - Final, Complete 06/02/17 Urine Culture - Final, Complete 06/04/17 Gram Stain - Final, Resulted 06/04/17 Wound Culture - Final, Resulted Staphylococcus Aureus 06/04/17 Anaerobic Culture, Resulted Pending Creatinine Clearance Date:06/04/17. Creatinine Clearance: [79 ml/min]. Date:06/03/17. Creatinine Clearance: [48]. Assessment and Plan Maintaining Current Dose?: Yes Reason for dose change: No Dose Change Pharmacist Note Pharmacist Note Date: 06/04/17. Pharmacist note:Trough of 16.4 is within target range. Will continue current dosing. Will continue to monitor and make adjustments as needed. [facility] Jun 06, 2017 06:04
[2017-06-06] MEDS: VANCOMYCIN HCL 1,000 MG, VIAL MATE ADAPTER 1 EACH in D5W 250 ML IV SCH (06:49)
[2017-06-06 08:00] VITALS: BP 162/94
[2017-06-06] MEDS: PANTOPRAZOLE 40MG INJ (PROTONIX) (C9113) IV SCH (08:40)
[2017-06-06 08:41] VITALS: BP 162/94
[2017-06-06] MEDS: LISINOPRIL 5 MG TAB PO SCH (08:41)
[2017-06-06] MEDS: CARVedilol 12.5 MG TAB PO SCH (08:41)
[2017-06-06] MEDS ORDERED: BACTRIM 160MG/800MG DS TAB PO SCH (09:00)
[2017-06-06] MEDS ORDERED: oxyCODONE 10 MG CR TAB PO SCH (09:00)
[2017-06-06] MEDS ORDERED: PERCOCET 5MG/325MG TAB PO PRN (10:15)
--- NOTE | 2017-06-06 10:24 | IPN ---
DATE: 06/06/2017 HISTORY OF PRESENT ILLNESS: Mohan Oliveira is a 61-year-old man currently hospitalized with neck cellulitis. He is status post drainage of a neck abscess. His condition in terms of his infection in his neck is improving. He has developed abdominal pain and diarrhea overnight. He has been afebrile overnight. His white blood cell count has decreased. He feels that his pain is now fairly well controlled. He is able to swallow pills now. He is wanting to drink Ensure with his medications. PHYSICAL EXAMINATION: GENERAL: No acute distress. Voice is normal. NECK: Cellulitis is receding. The [place] drain was removed and a dressing was placed. Cultures demonstrated methicillin-sensitive Staphylococcus aureus. These were cultures of the neck abscess. ASSESSMENT AND PLAN: Mohan Oliveira is a 61-year-old man with Staphylococcus aureus neck abscess. This has been drained. The patient is now having diarrhea. Clostridium difficile testing was sent. Will discontinue vancomycin and Zosyn and start the patient on some Bactrim. The patient was also restarted on some of his home pain medications. Plan for today is to follow the C. Difficile result and follow any hospitalist recommendations.
[2017-06-06 12:00] VITALS: BP 152/82
[2017-06-06] MEDS ORDERED: BACT800T5 PO (13:06)
--- NOTE | 2017-06-06 14:26 | IPNPDOC ---
Subjective Date Seen The patient was seen on 06/06/17. Subjective Chief Complaint/HPI The patient is a 61-year-old male admitted with a reason for visit of Cellulitis Of Neck. Events since last encounter Mohan is feeling much better today. The ENT surgeon is considering sending him home. I spoke to Mohan's sister and caregiver, Imelda, who expressed some concern about his ability to hold down adequate nutrition and hydration. She is specifically concerned about this because when he was discharged after his surgery he was not able to stay in the outpatient setting because of these very issues. General: Reports: Other Symptoms (his appetite is improving but he is nervous that eating will hurt) Constitutional: Denies: Chills, Fever Pulmonary: Denies: Cough Cardiovascular: Denies: Chest Pain, Palpitations Gastrointestinal: Denies: Nausea Psych: Reports: Mood Normal Objective Physical Examination General Exam: Positive: Alert, No Acute Distress Eye Exam: Positive: Conjunctiva & lids normal, Negative: Sclera icteric ENT Exam: Positive: Mucous membr. moist/pink Neck Exam: Positive: Other (the erythema is almost entirely faded on his chest now. He continues to have some scant discharge from the wound in his neck, but the drain has been removed.) Chest Exam: Positive: Clear to auscultation, Normal air movement Heart Exam: Positive: Rate Normal, Regular Rhythm Abdomen Exam: Positive: Normal bowel sounds, Soft, Negative: Tenderness Extremity Exam: Negative: Edema Neuro Exam: Positive: Normal Speech Psych Exam: Positive: Mood NL, Oriented x 3 Assessment /Plan Problems (1) Cellulitis, neck Status: Acute Problem Text: He's been changed to oral vancomycin now. He has already tolerated 1 dose of this in the hospital. I feel that discharge is reasonable at this time, however, I encouraged him to stay through one more meal to make sure he can keep an entire meal down and he doesn't have pain or discomfort with the second meal. After he has tolerated supper tonight, he could reasonably go home being reassured he'll be able to maintain nutrition and hydration. (2) RSD (reflex sympathetic dystrophy) Status: Chronic Problem Text: Normally on Methadone, Oxycodone, Hydrocodone, Skelaxin, Lyrica and Disipramine - per pain clinic. I anticipate he'll go home on his previous regimen. (3) Chronic pain Problem Text: see above (4) Depression Status: Chronic Response to Treatment: Stable Problem Text: cont. Lexapro (5) HTN (hypertension) Status: Chronic Response to Treatment: Stable Problem Text: His pressures are better, if not ideally controlled on his home regimen of lisinopril and Coreg. (6) MANGO (obstructive sleep apnea) Status: Chronic Response to Treatment: Stable Problem Text: on CPAP as outpatient - continue here at usual home settings Plan/VTE VTE Prophylaxis Ordered?: Yes (SCDs and TEDs) VS, I&O, 24H, Fishbone Vital Signs/I&O Vital Signs Date Time Temp Pulse Resp B/P (MAP) Pulse Ox O2 Delivery O2 Flow Rate FiO2 06/06/17 12:17 18 06/06/17 12:00 99.2 55 152/82 (105) 95 Room Air 06/03/17 12:00 2.0 I&O- Last 24 Hours up to 6 AM 06/06/17 06:00 Intake Total 1540 ml Output Total 950 ml Balance 590 ml Laboratory Data 24H LABS Laboratory Tests 2 06/06/17 05:10: White Blood Count 13.4H, Red Blood Count 4.11L, Hemoglobin 13.2L, Hematocrit 39.0L, Mean Corpuscular Volume 94.9, Mean Corpuscular Hemoglobin 32.2, Mean Corpuscular Hemoglobin Concent 34.0, Red Cell Distribution Width 12.3, Platelet Count 198, Neutrophils (%) (Auto) 90.5H, Lymphocytes (%) (Auto) 3.7L, Monocytes (%) (Auto) 4.8, Eosinophils (%) (Auto) 0.4, Basophils (%) (Auto) 0.1, Neutrophils # (Auto) 12.1H, Lymphocytes # (Auto) 0.6L, Monocytes # (Auto) 0.7, Eosinophils # (Auto) 0.0, Basophils # (Auto) 0.0, Large Unclassified Cells % 0.5 , Large Unclassified Cells # 0.1, Anion Gap 9, Glomerular Filtration Rate > 60.0 , Blood Urea Nitrogen 21H, Creatinine 0.95, Sodium Level 145, Potassium Level 3.6, Chloride Level 109H, Carbon Dioxide Level 27, Calcium Level 8.2L, Aspartate Amino Transf (AST/SGOT) 10L, Alanine Aminotransferase (ALT/SGPT) 22, Alkaline Phosphatase 43L, Total Bilirubin 0.9, Total Protein 6.4, Albumin 2.5L, Albumin/Globulin Ratio 0.64L, Vancomycin Level Trough 16.4 CBC/BMP Laboratory Tests 06/06/17 05:10 Red Blood Count 4.11 L, Mean Corpuscular Volume 94.9, Mean Corpuscular Hemoglobin 32.2, Mean Corpuscular Hemoglobin Concent 34.0, Red Cell Distribution Width 12.3, Neutrophils (%) (Auto) 90.5 H, Lymphocytes (%) (Auto) 3.7 L, Monocytes (%) (Auto) 4.8, Eosinophils (%) (Auto) 0.4, Basophils (%) (Auto ) 0.1, Neutrophils # (Auto) 12.1 H, Lymphocytes # (Auto) 0.6 L, Monocytes # ( Auto) 0.7, Eosinophils # (Auto) 0.0, Basophils # (Auto) 0.0, Calcium Level 8.2 L , Aspartate Amino Transf (AST/SGOT) 10 L, Alanine Aminotransferase (ALT/SGPT) 22 , Alkaline Phosphatase 43 L, Total Bilirubin 0.9, Total Protein 6.4, Albumin 2.5 L Microbiology Microbiology 06/02/17 Blood Culture - Preliminary, Resulted No Growth after 72 hours. All specime... 06/02/17 Blood Culture - Preliminary, Resulted No Growth after 72 hours. All specime... 06/06/17 Gastrointestinal Tract Panel (PCR) - Final, Complete 06/02/17 Influenza Virus Type A Antigen - Final, Complete 06/02/17 Influenza Virus Type B Antigen - Final, Complete 06/02/17 Urine Culture - Final, Complete 06/04/17 Gram Stain - Final, Complete 06/04/17 Wound Culture - Final, Complete Staphylococcus Aureus 06/04/17 Anaerobic Culture - Final, Complete Yousif Martines MD Jun 06, 2017 14:26
[2017-06-06 16:00] VITALS: BP 150/88
--- NOTE | 2017-07-08 14:05 | DSES ---
DATE OF ADMISSION: 06/02/2017 DATE OF DISCHARGE: 06/06/2017 HOSPITAL COURSE: Mohan Oliveira is a 61-year-old man who was admitted to the hospital on 06/02/2017 with neck cellulitis. His recent history is significant for lateral pharyngoplasty and hyoid suspension. The site of the infection would be anterior neck incision. The patient was admitted directly to the intensive care unit (ICU) and to the ENT service. The hospitalist senior relationship manager was consulted. He was started on Zosyn and vancomycin. He was febrile during the first few days of his hospitalization intermittently. The patient ultimately developed an abscess at the operative site and was taken to the operating room on 06/04/2017 for drainage of the abscess. This was uneventful and the patient recovered through his hospitalization and was able to be discharged on 06/06/2017 to followup with his regular physicians and with otolaryngology.
== END 2017-06-06 18:55 | disposition home or self-care (01) | DRG 863 ==
LOC: M ED 21:20 → M ED INP 23:45 → M ICU 06-03 03:45 → M PED 06-05 14:58
PROVIDERS: ADMIT Otolaryngology; ATTEND Otolaryngology
PROC: 0H94X0Z Drainage of Neck Skin with Drainage Device, External Approach (ICD-10-PCS; principal; 2017-06-04 08:26)
DX: T81.4XXA Infection following a procedure, initial encounter (principal); N17.9 Acute kidney failure, unspecified; E27.40 Unspecified adrenocortical insufficiency; L03.221 Cellulitis of neck; G90.521 Complex regional pain syndrome I of right lower limb; L02.11 Cutaneous abscess of neck; I10 Essential (primary) hypertension; F32.9 Major depressive disorder, single episode, unspecified; G47.33 Obstructive sleep apnea (adult) (pediatric); Z79.82 Long term (current) use of aspirin; Z79.899 Other long term (current) drug therapy; B95.61 Methicillin susceptible Staphylococcus aureus infection as the cause of diseases classified elsewhere; Y82.9 Unspecified medical devices associated with adverse incidents

== ENCOUNTER → 2017-06-25 | Outpatient (REF) | payer MEDICARE ==
[~2017-06-25] MED LIST changes: +BACT800T5 PO; +LYRI200C PO; +NORC1TAB4 PO; +PERC5TAB12 PO; +ZOLP10TA2 PO
== END ==
LOC: M LAB REF 17:13
PROVIDERS: ATTEND Otolaryngology
DX: L02.11 Cutaneous abscess of neck (principal)

== ENCOUNTER → 2017-11-23 | Outpatient (CLI) | payer MEDICARE ==
[2017-11-23 13:58] LABS: HEMATOCRIT 47.4 % (42.0-52.0); MEAN CORPUSCULAR HEMOGLOBIN 30.5 pg (27.0-33.0); MEAN CORPUSCULAR HGB CONC 33.8 g/dl (32.0-36.5); MEAN CORPUSCULAR VOLUME 90.3 fl (80.0-96.0); PLATELET COUNT, AUTOMATED 174 10^3/uL (150-450); RED BLOOD COUNT 5.25 10^6/uL (4.30-6.10); RED CELL DISTRIBUTION WIDTH 12.4 % (11.5-14.5); WHITE BLOOD COUNT 6.2 10^3/uL (4.0-10.0)
[2017-11-23 14:26] LABS: ALBUMIN 3.7 GM/DL (3.2-5.2); ALBUMIN/GLOBULIN RATIO 1.28 (1.00-1.93); ALKALINE PHOSPHATASE 68 U/L (45-117); ALT/SGPT 31 U/L (12-78); ANION GAP 4 MEQ/L (8-16); AST/SGOT 19 U/L (7-37); BILIRUBIN,TOTAL 1.7 MG/DL (0.2-1.0); BLOOD UREA NITROGEN 14 MG/DL (7-18); C REACTIVE PROTEIN QUANTITATIV < 0.30 MG/DL (0.00-0.30); CALCIUM LEVEL 8.5 MG/DL (8.8-10.2); CARBON DIOXIDE LEVEL 33 MEQ/L (21-32); CHLORIDE LEVEL 104 MEQ/L (98-107); FERRITIN 35 NG/ML (26-388); GLOMERULAR FILTRATION RATE > 60.0 (>49); GLUCOSE, FASTING 78 MG/DL (70-100); POTASSIUM SERUM 4.2 MEQ/L (3.5-5.1); SODIUM LEVEL 141 MEQ/L (136-145); TOTAL PROTEIN 6.6 GM/DL (6.4-8.2)
[2017-11-23 14:45] LABS: ERYTHROCYTE SEDIMENTATION RATE 1 mm/hr (0-20)
[2017-11-23 21:40] LABS: TOTAL 25(OH) VITAMIN D 31.8 NG/ML (30.0-100.0)
[2017-11-25 00:06] LABS: Lyme Disease IgG/IgM Antibodie <0.91 ISR (0.00-0.90); Lyme Disease IgM Ab Quantitati <0.80 index (0.00-0.79)
== END ==
LOC: M LAB 12:51
DX: R53.82 Chronic fatigue, unspecified (principal)
CPT/HCPCS: 84443

== ENCOUNTER → 2018-03-02 | Outpatient (CLI) | payer MEDICARE ==
[2018-03-02 10:21] LABS: ALBUMIN 3.6 GM/DL (3.2-5.2); ALBUMIN/GLOBULIN RATIO 1.29 (1.00-1.93); ALKALINE PHOSPHATASE 57 U/L (45-117); ALT/SGPT 28 U/L (12-78); ANION GAP 4 MEQ/L (8-16); AST/SGOT 16 U/L (7-37); BILIRUBIN,TOTAL 1.1 MG/DL (0.2-1.0); BLOOD UREA NITROGEN 19 MG/DL (7-18); CALCIUM LEVEL 8.2 MG/DL (8.8-10.2); CARBON DIOXIDE LEVEL 33 MEQ/L (21-32); CHLORIDE LEVEL 103 MEQ/L (98-107); CREATININE FOR GFR 1.07 MG/DL (0.70-1.30); GLOMERULAR FILTRATION RATE > 60.0 (>49); GLUCOSE, FASTING 122 MG/DL (70-100); PHOSPHORUS LEVEL 2.6 MG/DL (2.5-4.9); POTASSIUM SERUM 4.2 MEQ/L (3.5-5.1); SODIUM LEVEL 140 MEQ/L (136-145); TOTAL PROTEIN 6.4 GM/DL (6.4-8.2)
[2018-03-02 11:06] LABS: PTH INTACT 72.8 PG/ML (18.5-88.0); TOTAL 25(OH) VITAMIN D 23.8 NG/ML (30.0-100.0)
== END ==
LOC: M LAB 09:19
DX: M81.8 Other osteoporosis without current pathological fracture (principal); T38.0X5A Adverse effect of glucocorticoids and synthetic analogues, initial encounter
CPT/HCPCS: 84100

== ENCOUNTER → 2018-05-26 | Outpatient (CLI) | payer MEDICARE ==
[~2018-05-26] MED LIST changes: -AMBI5TAB PO; -ASPI81CH PO; -BACT800T5 PO; -CARV25TA PO; -CLAR10CA3 PO; -CLON1TAB PO; -DESI25TA59 PO; +E-Z-GAS II EFFERVESCENT PACKET (SODIUM BICARB./CITRIC ACID/SIMETHICONE) As Ordered; +E-Z-HD 98% w/w 340GM SUSP BTL As Ordered; +E-Z-PAQUE 96% w/w SUSP 176GM BTL As Ordered; -HYDR-3291 PO; -HYDR-3713 PO; -HYDR-3719 PO; -HYDR5TAB59 PO; -IBUP200C10 PO; -LEXA1TAB2 PO; -LISI-542 PO; -LYRI150C PO; -LYRI200C PO; -METAXALONE PO; -METH5TA PO; -NORC1TAB4 PO; -NORP10TA2 PO; -OMEP40CA2 PO; -OXYC20TA40 PO; -PERC5TAB12 PO; -PRED5TA PO; -SKEL800T97 PO; -TESTPOW5 IM; -TIZA4CAP3 PO; -ZOLP10TA2 PO
== END ==
LOC: M RAD 10:01
DX: K21.9 Gastro-esophageal reflux disease without esophagitis (principal)
CPT/HCPCS: 74220

== ENCOUNTER → 2018-07-13 | Outpatient (CLI) | payer MEDICARE ==
[2018-07-13 08:54] LABS: CPK CREATINE PHOSPHOKINASE 129 U/L (39-308)
[2018-07-13 08:54] LABS: FREE T3 3.6 PG/ML (2.2-4.0); THYROID STIMULATING HORMONE 0.637 uIU/ML (0.358-3.740)
[2018-07-13 09:17] LABS: TOTAL 25(OH) VITAMIN D 47.6 NG/ML (30.0-100.0)
[2018-07-13 09:20] LABS: CORTISOL AM 0.7 UG/DL (4.3-22.4)
[2018-07-16 00:06] LABS: ANCA-ATYPICAL <1:20 titer (Neg:<1:20); CYTOPLASMIC NEUTROP AB ANCA-C <1:20 titer (Neg:<1:20); PERINUCLEAR AB ANCA-P <1:20 titer (Neg:<1:20); THYROID BINDING GLOBULIN 11 ug/mL (13-39)
== END ==
LOC: M LAB 07:28
DX: M79.10 Myalgia, unspecified site (principal); E27.40 Unspecified adrenocortical insufficiency; R94.6 Abnormal results of thyroid function studies; R53.82 Chronic fatigue, unspecified; Z79.899 Other long term (current) drug therapy
CPT/HCPCS: 82550

== ENCOUNTER → 2018-08-29 | Outpatient (CLI) | payer MEDICARE ==
[2018-08-29 08:56] LABS: BASO % 0.3 % (0.0-1.0); EOS # 0.2 10^3/uL (0.0-0.50); EOS % 2.2 % (0.0-3.0); HEMATOCRIT 46.2 % (42.0-52.0); HEMOGLOBIN 15.5 g/dl (13.5-17.5); IMMATURE GRANULOCYTE % 0.4 % (0-3.0); LYMPH # 2.3 10^3/uL (1.5-4.5); LYMPH % 30.8 % (24.0-44.0); MEAN CORPUSCULAR HEMOGLOBIN 32.2 pg (27.0-33.0); MEAN CORPUSCULAR HGB CONC 33.5 g/dl (32.0-36.5); MEAN CORPUSCULAR VOLUME 95.9 fl (80.0-96.0); MONO # 0.7 10^3/uL (0.0-0.8); MONO % 9.6 % (0.0-5.0); NEUTROPHILS # 4.3 10^3/uL (1.8-7.7); NEUTROPHILS % 56.7 % (36.0-66.0); PLATELET COUNT, AUTOMATED 179 10^3/uL (150-450); RED BLOOD COUNT 4.82 10^6/uL (4.30-6.10); RED CELL DISTRIBUTION WIDTH 12.5 % (11.5-14.5); WHITE BLOOD COUNT 7.6 10^3/uL (4.0-10.0)
[2018-08-29 10:10] LABS: ALBUMIN 3.6 GM/DL (3.2-5.2); ALBUMIN/GLOBULIN RATIO 1.33 (1.00-1.93); ALKALINE PHOSPHATASE 49 U/L (45-117); ALT/SGPT 38 U/L (12-78); ANION GAP 4 MEQ/L (8-16); AST/SGOT 21 U/L (7-37); BILIRUBIN,TOTAL 0.7 MG/DL (0.2-1.0); BLOOD UREA NITROGEN 20 MG/DL (7-18); CALCIUM LEVEL 8.5 MG/DL (8.8-10.2); CARBON DIOXIDE LEVEL 34 MEQ/L (21-32); CHLORIDE LEVEL 103 MEQ/L (98-107); CHOLESTEROL LEVEL 156 MG/DL (<200); CREATININE FOR GFR 1.05 MG/DL (0.70-1.30); FREE T4 0.76 NG/DL (0.76-1.46); GLOMERULAR FILTRATION RATE > 60.0 (>49); GLUCOSE, FASTING 89 MG/DL (70-100); HDL CHOLESTEROL 24 MG/DL (>40); NON-HDL-C 132 MG/DL; POTASSIUM SERUM 4.1 MEQ/L (3.5-5.1); SODIUM LEVEL 141 MEQ/L (136-145); TOTAL PROTEIN 6.3 GM/DL (6.4-8.2); TRIGLYCERIDES LEVEL 489 MG/DL (<150)
[2018-08-29 10:15] LABS: TOTAL 25(OH) VITAMIN D 53.1 NG/ML (30.0-100.0)
[2018-08-29 10:16] LABS: TESTOSTERONE 770 NG/DL (241-827)
[2018-08-29 10:35] LABS: ESTIMATED AVERAGE GLUCOSE 105 MG/DL (60-110); HEMOGLOBIN A1c 5.3 %
== END ==
LOC: M LAB 08:25
DX: E23.0 Hypopituitarism (principal); R73.03 Prediabetes; E55.9 Vitamin D deficiency, unspecified; Z79.899 Other long term (current) drug therapy
CPT/HCPCS: 84403

== ENCOUNTER 2019-03-08 11:42 | Emergency (ER) | payer MEDICARE ==
[~2019-03-08] VITALS: Ht 170.2 cm; Wt 88.2 kg
[~2019-03-08 11:42] MED LIST changes: +AMBI5TAB PO; +ASPI81CH49 PO; +BACT800T5 PO; +CARV25TA PO; +CLAR10CA3 PO; +CLON1TAB8 PO; +DESI25TA59 PO; -E-Z-GAS II EFFERVESCENT PACKET (SODIUM BICARB./CITRIC ACID/SIMETHICONE) As Ordered; -E-Z-HD 98% w/w 340GM SUSP BTL As Ordered; -E-Z-PAQUE 96% w/w SUSP 176GM BTL As Ordered; +HYDR-3713 PO; +HYDR-3719 PO; +HYDR-4327 PO; +HYDR-4513 PO; +IBUP200C25 PO; +LEXA1TAB2 PO; +LISI-542 PO; +LYRI150C PO; +LYRI200C PO; +METAXALONE PO; +METH5TA PO; +NORC1TAB7 PO; +NORP10TA2 PO; +OMEP40CA2 PO; +OXYC20TA40 PO; +PERC5TAB12 PO; +PRED5TA PO; +SKEL800T97 PO; +TESTPOW5 IM; +TIZA4CAP PO; +ZOLP10TA2 PO
[2019-03-08] MEDS ORDERED: KETOROLAC 30 MG/ML VIAL (J1885) IV ONE (14:15)
[2019-03-08 14:45] LABS: BASO % 0.2 % (0.0-1.0); EOS # 0.1 10^3/uL (0.0-0.50); EOS % 0.6 % (0.0-3.0); HEMATOCRIT 42.8 % (42.0-52.0); LYMPH # 2.3 10^3/uL (1.5-4.5); MEAN CORPUSCULAR HEMOGLOBIN 33.2 pg (27.0-33.0); MEAN CORPUSCULAR VOLUME 94.7 fl (80.0-96.0); MONO # 0.8 10^3/uL (0.0-0.8); MONO % 8.4 % (0.0-5.0); NEUTROPHILS # 6.6 10^3/uL (1.8-7.7); NEUTROPHILS % 67.2 % (36.0-66.0); PLATELET COUNT, AUTOMATED 156 10^3/uL (150-450); RED BLOOD COUNT 4.52 10^6/uL (4.30-6.10); WHITE BLOOD COUNT 9.9 10^3/uL (4.0-10.0)
[2019-03-08] MEDS ORDERED: NS 1,000 ML IV ONE (14:45)
[2019-03-08] MEDS ORDERED: ISOVUE-370 76% 100ML VIAL (Q9967) As Ordered ONE (14:49)
[2019-03-08] MEDS ORDERED: MORPHINE 2 MG/ML 1ML SYRINGE (J2270) IV ONE (16:00)
--- NOTE | 2019-03-08 16:00 | REP ---
CT ABDOMEN AND PELVIS WITH IV CONTRAST: TECHNIQUE: Axial contrast enhanced images from the lung bases to the pubic symphysis using 100 mL Isovue 370 intravenous contrast material with multiplanar reformations. Visualized lung bases demonstrate no evidence of acute infiltrate. The liver demonstrates no mass. The spleen is unremarkable. Adrenal glands and pancreas demonstrate no mass. 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 There is a main renal artery arising below the level of the inferior mesenteric artery which immediately divides into a right and left renal artery. There are two subcentimeter intrarenal calculi in the right side of the fused kidneys and one in the left side. No hydronephrosis or hydroureter is seen. No bladder calculus is seen. There is mild atherosclerotic calcification of the abdominal aorta without aneurysm. I see no adenopathy. There is no free air or free fluid. No bowel wall thickening is seen. The appendix is normal. No pelvic mass is seen. The urinary bladder appears unremarkable. There are degenerative changes of the spine. IMPRESSION: No evidence of appendicitis. No free air or free fluid. Fused pelvic kidneys contain a few tiny subcentimeter calcifications but there is no hydroureteronephrosis. No other acute finding. Electronically Signed by Carroll Belle MD 03/09/2019 09:15 A
[2019-03-08 16:38] LABS: ALBUMIN 3.2 GM/DL (3.2-5.2); BILIRUBIN,DIRECT 0.2 MG/DL (0.0-0.2); TOTAL PROTEIN 5.7 GM/DL (6.4-8.2)
[2019-03-08] MEDS ORDERED: FLOM0.4C39 PO (17:39)
[2019-03-08 17:52] VITALS: BP 133/87
== END 2019-03-08 17:58 | disposition home or self-care (01) ==
LOC: M ED 11:42
DX: N20.0 Calculus of kidney (principal); I10 Essential (primary) hypertension; K40.90 Unilateral inguinal hernia, without obstruction or gangrene, not specified as recurrent; G47.33 Obstructive sleep apnea (adult) (pediatric); Z79.899 Other long term (current) drug therapy; Z79.82 Long term (current) use of aspirin
CPT/HCPCS: 36415; 74177; 80047; 80076; 81001; 83605; 83690; 85025; 96374; 96375; 99284; J1885; J2270; Q9967

== ENCOUNTER → 2019-03-15 | Outpatient (CLI) | payer MEDICARE ==
[~2019-03-15] MED LIST changes: +FLOM0.4C39 PO
--- NOTE | 2019-03-16 21:55 | SLEEPCENT ---
DATE OF PROCEDURE: 03/15/2019 Ordered by: JEY Gross Nocturnal polysomnography was performed for evaluation of sleep physiology in this patient with excessive somnolence and nonrestorative sleep. 6 hours and 44 minutes of data were reviewed. There were 330 minutes of sleep identified. Sleep latency was short at 6.5 minutes. REM sleep was not achieved. Overall sleep architecture showed poor progression with periods of wake. Sleep efficiency was 82.6%, but there was no REM time. The patient's electrocardiogram showed a sinus rhythm with an average heart rate of 84 beats per minute. Occasional PVCs were identified. EEG showed normal waveforms for awake and sleep stages. There were 473 respiratory events identified of 10 seconds in duration or greater for an apnea-hypopnea index of 86. The events were primarily obstructive, not exclusive to sleep stage, more frequent in the supine posture. Arousals from respiratory events occurred 85.3 times per hour and oxygen desaturations were seen into the 70s. There was some limb activity, but arousals from limb events were few. IMPRESSION Severe obstructive sleep apnea syndrome (G47.33). Apnea-hypopnea index 86. RECOMMENDATIONS The patient should be encouraged to return to the sleep disorder center at his earliest convenience for pressure therapy. In the interim, alcohol and sedative avoidance should be practiced and caution exercised during operation of motor vehicles.
== END ==
LOC: M SLEEP 19:29
PROVIDERS: ATTEND Nurse Practitioner Family
DX: G47.33 Obstructive sleep apnea (adult) (pediatric) (principal)

== ENCOUNTER → 2019-03-16 | Outpatient (REF) | payer MEDICARE | LOC: M LAB REF 12:30 | PROVIDERS: ATTEND Otolaryngology | DX: J31.2 Chronic pharyngitis (principal) ==

== ENCOUNTER → 2019-04-05 | Outpatient (CLI) | payer MEDICARE ==
--- NOTE | 2019-04-07 20:49 | SLEEPCENT ---
DATE OF PROCEDURE: 04/05/2019 ORDERED BY: LULI Gross Nocturnal polysomnography was performed for the titration of pressure therapy in this patient with obstructive sleep apnea syndrome. Apnea-hypopnea index 86. For testing an AirFit N10 nasal pillows device was used at the patient's request; 4 cm of water pressure were applied to the circuit and the lights were extinguished. 6 hours and 25 minutes of data were reviewed. There were 190 minutes of sleep identified. Sleep latency was prolonged at 71.5 minutes. Rapid eye movement (REM) sleep was not achieved. Sleep architecture was fair with poor progression. Overall sleep efficiency was 52.6% due to a prolonged period of wake between midnight and 1:30 a.m. The patient's electrocardiogram showed a sinus rhythm with an average heart rate of 85 beats per minute. EEG showed some artifactual change but no focal events. Normal waveforms for awake and sleep were appreciated. Persistence of respiratory events prompted an increase in pressure therapy. Despite optimal mask fit and minimal air leak, the patient required a change to a bilevel device. Titration proceeded to a maximal pressure of inspiratory 12 over expiratory 8 with which the patient slept reasonably well. However, brief apneic periods did persist. These were not associated with significant oxygen desaturation. There was some activity in the limb leads but limb movement arousal index was only 3.8. IMPRESSION: Obstructive sleep apnea syndrome (G47.33). RECOMMENDATIONS: Initiation of pressure with a bilevel device at an inspiratory pressure of 12 over expiratory of 8 would seem reasonable based on these findings. As the patient did not achieve REM sleep and had some minor respiratory events despite this pressure, close clinical followup is recommended.
== END ==
LOC: M SLEEP 19:29
PROVIDERS: ATTEND Nurse Practitioner Family
DX: G47.33 Obstructive sleep apnea (adult) (pediatric) (principal)

== ENCOUNTER → 2019-04-10 | Outpatient (REF) | payer MEDICARE | LOC: M LAB REF 15:33 | PROVIDERS: ATTEND Otolaryngology | DX: D10.39 Benign neoplasm of other parts of mouth (principal); F41.8 Other specified anxiety disorders ==

== ENCOUNTER → 2019-04-14 | Outpatient (REF) | payer MEDICARE ==
[2019-04-14 17:43] LABS: ALBUMIN 3.9 GM/DL (3.2-5.2); BILIRUBIN,TOTAL 1.3 MG/DL (0.2-1.0); CALCIUM LEVEL 8.3 MG/DL (8.8-10.2); CREATININE FOR GFR 1.31 MG/DL (0.70-1.30); GLOMERULAR FILTRATION RATE 59.2 (>49); POTASSIUM SERUM 3.9 MEQ/L (3.5-5.1); THYROID STIMULATING HORMONE 0.402 uIU/ML (0.358-3.740); TOTAL 25(OH) VITAMIN D 31.6 NG/ML (30.0-100.0); TOTAL PROTEIN 6.8 GM/DL (6.4-8.2)
[2019-04-17 14:36] LABS: SSA SJOGRENS A <0.2 AI (0.0-0.9); SSB SJOGRENS B <0.2 AI (0.0-0.9)
== END ==
LOC: M SFHCPLAZ 15:10
PROVIDERS: ATTEND Family Medicine
DX: R68.2 Dry mouth, unspecified (principal); F33.1 Major depressive disorder, recurrent, moderate; G89.4 Chronic pain syndrome
CPT/HCPCS: 36415; 80053; 82306; 84443; 86235; 96372; G0463; J1885

== ENCOUNTER → 2019-05-22 | Outpatient (REF) | payer MEDICARE ==
[~2019-05-22] MED LIST changes: +ATOR40TA75 PO; -OMEP40CA2 PO; +OMEP40CA97 PO; +OXYC-517 PO; +PREG200C PO
[2019-05-22 16:47] LABS: BLOOD UREA NITROGEN 17 MG/DL (7-18); CALCIUM LEVEL 8.9 MG/DL (8.8-10.2); CARBON DIOXIDE LEVEL 33 MEQ/L (21-32); CHLORIDE LEVEL 105 MEQ/L (98-107); CREATININE FOR GFR 1.07 MG/DL (0.70-1.30); GLOMERULAR FILTRATION RATE > 60.0 (>49); GLUCOSE, FASTING 83 MG/DL (70-100); POTASSIUM SERUM 4.4 MEQ/L (3.5-5.1); SODIUM LEVEL 141 MEQ/L (136-145)
== END ==
LOC: M SFHCPLAZ 13:43
PROVIDERS: ATTEND Family Medicine
DX: R79.89 Other specified abnormal findings of blood chemistry (principal)
CPT/HCPCS: 80048; G0463

== ENCOUNTER → 2019-08-08 | Outpatient (CLI) | payer MEDICARE ==
[~2019-08-08] MED LIST changes: -ATOR40TA75 PO; -OXYC-517 PO; -PREG200C PO
[2019-08-08 15:10] LABS: CHOLESTEROL RISK RATIO 2.405 (<5)
[2019-08-08 15:24] LABS: TOTAL 25(OH) VITAMIN D 36.7 NG/ML (30.0-100.0)
== END ==
LOC: M LAB 14:15
PROVIDERS: ATTEND Family Medicine
DX: E78.1 Pure hyperglyceridemia (principal); R53.82 Chronic fatigue, unspecified; Z79.82 Long term (current) use of aspirin; Z79.899 Other long term (current) drug therapy

== ENCOUNTER → 2019-08-30 | Outpatient (REF) | payer MEDICARE ==
[2019-08-30 11:24] LABS: BASO % 0.2 % (0.0-1.0); EOS # 0.2 10^3/uL (0.0-0.5); EOS % 1.9 % (0.0-3.0); HEMATOCRIT 48.3 % (42.0-52.0); HEMOGLOBIN 16.1 g/dl (13.5-17.5); LYMPH # 2.2 10^3/uL (1.5-5.0); LYMPH % 23.8 % (24.0-44.0); MEAN CORPUSCULAR HEMOGLOBIN 32.1 pg (27.0-33.0); MEAN CORPUSCULAR HGB CONC 33.3 g/dl (32.0-36.5); MEAN CORPUSCULAR VOLUME 96.4 fl (80.0-96.0); MONO # 0.8 10^3/uL (0.0-0.8); MONO % 8.7 % (0.0-5.0); NEUTROPHILS # 5.8 10^3/uL (1.5-8.5); NEUTROPHILS % 64.7 % (36.0-66.0); PLATELET COUNT, AUTOMATED 178 10^3/uL (150-450); RED BLOOD COUNT 5.01 10^6/uL (4.30-6.10)
== END ==
LOC: M SFHCPLAZ 10:01
PROVIDERS: ATTEND Family Medicine
DX: Z01.818 Encounter for other preprocedural examination (principal); M54.12 Radiculopathy, cervical region

== ENCOUNTER 2019-09-25 13:16 | Emergency (ER) | payer MEDICARE ==
[~2019-09-25] VITALS: Ht 170.2 cm; Wt 86.8 kg
[2019-09-25] MEDS ORDERED: OXYC-517 PO (14:56)
[2019-09-25] MEDS ORDERED: ATOR40TA75 PO (14:56)
[2019-09-25] MEDS ORDERED: PREG200C PO (14:56)
[2019-09-25] MEDS ORDERED: MORPHINE 4 MG/ML 1ML VIAL/SYRINGE (J2270) IV ONE (15:45)
[2019-09-25] MEDS ORDERED: PROMETHAZINE INJ 25 MG/ML VIAL (J2550) IV ONE (15:45)
[2019-09-25] MEDS ORDERED: ISOVUE-370 76% 100ML VIAL (Q9967) As Ordered ONE (16:51)
[2019-09-25 17:08] LABS: BASO % 0.3 % (0.0-1.0); EOS # 0.1 10^3/uL (0.0-0.5); HEMATOCRIT 49.5 % (42.0-52.0); HEMOGLOBIN 16.1 g/dl (13.5-17.5); MEAN CORPUSCULAR HEMOGLOBIN 31.4 pg (27.0-33.0); MEAN CORPUSCULAR HGB CONC 32.5 g/dl (32.0-36.5); MEAN CORPUSCULAR VOLUME 96.7 fl (80.0-96.0); MONO # 0.6 10^3/uL (0.0-0.8); MONO % 6.7 % (0.0-5.0); NEUTROPHILS # 6.5 10^3/uL (1.5-8.5); NEUTROPHILS % 70.4 % (36.0-66.0); PLATELET COUNT, AUTOMATED 260 10^3/uL (150-450); RED BLOOD COUNT 5.12 10^6/uL (4.30-6.10); WHITE BLOOD COUNT 9.3 10^3/uL (4.0-10.0)
--- NOTE | 2019-09-25 17:56 | REPVR ---
PROCEDURE INFORMATION: Exam: CT Right Upper Extremity Without Contrast, Shoulder Exam date and time: 09/25/2019 3:34 PM Age: 64 years old Clinical indication: Pain; Shoulder; Right; Prior surgery; Surgery date: 3-7 days post-operative; Surgery type: Neck; Additional info: With contrast please, recent srugery, increased pain TECHNIQUE: Imaging protocol: CT of the Right upper extremity without contrast was performed. Exam focused on the shoulder. Radiation optimization: All CT scans at this facility use at least one of these dose optimization techniques: automated exposure control; mA and/or kV adjustment per patient size (includes targeted exams where dose is matched to clinical indication); or iterative reconstruction. COMPARISON: SR - CT Chest with contrast 06/02/2017 11:04:08 PM FINDINGS: Bones/joints: Cervical spine findings are dictated separately. Mild right acromioclavicular joint DJD. No acute fracture. No dislocation. Soft tissues: Hypodense 11 mm right thyroid lobe lesion, which warrants no followup imaging. Lungs: Noncalcified 3 mm right lower lobe pulmonary nodule (series 302 image 62). Noncalcified 3 mm right lower lobe pulmonary nodule (series 302 image 57). These are unchanged since the patient's chest CT and warrant no followup imaging. Pleural space: Trace right pleural effusion. IMPRESSION: 1. No acute osseous abnormality. 2. Mild right acromioclavicular joint DJD. 3. Trace right pleural effusion. Fleischner society recommendations for followup and management of pulmonary nodules in adults detected incidentally on screening CT (2017): Less than or equal to 6 mm (solitary or multiple): Low risk patients- no followup needed. High risk patients- optional CT in 12 months. 6-8 mm nodule (solitary): Low-risk patients- CT at 6-[address] at 18-24 months. High risk patients- CT at 6-12 months, then CT at 18-24 months. 6-8 mm nodule (multiple): Low-risk patients- CT at 3-[address] at 18-24 months. High risk patients- CT at 3-6 months, then CT at 18-24 months. >8 mm (solitary): Low-risk patients- consider CT, PET/CT, or tissue sampling at 3 months. High-risk patients- same as for low-risk patients. >8mm (multiple): Low-risk patients - CT at 3-6 months, then at 18-24 months. High-risk patients - same as for low risk patients. Electronically signed by: Hyun Zarco On 09/25/2019 17:55:50 PM
--- NOTE | 2019-09-25 18:06 | REPVR ---
PROCEDURE INFORMATION: Exam: CT Cervical Spine With Contrast Exam date and time: 09/25/2019 3:34 PM Age: 64 years old Clinical indication: Neck pain; Additional info: With contrast please, recent srugery, increased pain TECHNIQUE: Imaging protocol: Computed tomography images of the cervical spine with intravenous contrast. Radiation optimization: All CT scans at this facility use at least one of these dose optimization techniques: automated exposure control; mA and/or kV adjustment per patient size (includes targeted exams where dose is matched to clinical indication); or iterative reconstruction. Contrast material: ISOVUE 370; Contrast volume: 100 ml; Contrast route: IV; COMPARISON: CT Neck with contrast 06/02/2017 11:04 PM FINDINGS: Vertebrae: Anterior plate and screw fixation of the C4, C5, C6, and C7 levels. C4-C5, C5-C6, and C6-C7 intervertebral disc spacers. No acute cervical spine fracture. Mild dextrocurvature of the cervical spine, which may be positional. Minimal posterior facet joint arthropathy. Mild degenerative endplate changes. Normal sagittal alignment. Discs/Spinal canal/Neural foramina: Mild degenerative change at the atlantodental articulation. Dorsal osteophytes at C4-C5, C5-C6, C6-C7. Mild spinal canal stenosis, moderate right neural foraminal narrowing, and mild left neural foraminal narrowing at C4-C5. Mild spinal canal stenosis, severe left neural foraminal narrowing, and severe right neural foraminal narrowing at C5-C6. Moderate spinal canal stenosis, severe right neural foraminal narrowing, and moderate to severe left neural foraminal narrowing at C6-C7. Prevertebral Space: Mild prevertebral edema. Soft tissues: No soft tissue gas. No loculated fluid collection in the soft tissues. Minimal edema in the left carotid space. Thyroid: Hypodense 12 mm right thyroid lobe lesion, which warrants no followup imaging. Lungs: Lung apices are normal. Vasculature: Hypoplastic right and dominant left vertebral arteries. IMPRESSION: 1. Intact cervical spinal fixation hardware. 2. Mild prevertebral edema. COMMENT: In patients aged 35 years and older with an incidental thyroid nodule equal to or greater than 1.[address], MRI or extrathyroidal US, further evaluation with dedicated thyroid US is recommended for patients with normal life expectancy and without comorbidities. For smaller nodules without suspicious features, no further evaluation or follow up is recommended. Electronically signed by: Hyun Zarco On 09/25/2019 18:06:25 PM
[2019-09-25 18:42] VITALS: BP 135/79
[2019-09-25] MEDS ORDERED: predniSONE 10 MG TAB PO ONE (19:00)
--- NOTE | 2019-09-25 20:55 | REPVR ---
PROCEDURE INFORMATION: Exam: US Duplex Right Upper Extremity Veins, Limited Exam date and time: 09/25/2019 8:00 PM Age: 64 years old Clinical indication: Pain; Arm, upper and arm, lower; Right; Patient HX: Had neck surgery/spine surgery approx. 2 wks ago; Additional info: Rue pain, R/O dvt, recent surg TECHNIQUE: Imaging protocol: Real-time Duplex ultrasound of the Right Upper Extremity with 2-D ortiz scale, color Doppler flow and spectral waveform analysis with image documentation. Limited exam focused on the right upper extremity veins. COMPARISON: No relevant prior studies available. FINDINGS: Right deep veins: Unremarkable. Axillary and brachial veins are patent throughout without thrombus. Normal Doppler waveforms. Normal compressibility and/or augmentation response. Visualized internal jugular and subclavian veins are patent. Right superficial veins: Unremarkable. Visualized cephalic and basilic veins are patent without thrombus. Soft tissues: Unremarkable. IMPRESSION: No sonographic evidence of deep vein thrombosis. Electronically signed by: Gideon Redd On 09/25/2019 20:55:03 PM
--- NOTE | 2019-09-27 07:40 | ED PDOC ---
Post-Departure Follow-Up dr montero faxed fomral report of ct c spine for fu Raza Mallory MD Sep 27, 2019 07:40
== END 2019-09-25 20:28 | disposition left against medical advice (07) ==
LOC: M ED 13:16
DX: S46.011A Strain of muscle(s) and tendon(s) of the rotator cuff of right shoulder, initial encounter (principal); Y92.9 Unspecified place or not applicable; Y99.9 Unspecified external cause status; Y93.9 Activity, unspecified; E78.5 Hyperlipidemia, unspecified; R60.9 Edema, unspecified; G89.0 Central pain syndrome; I10 Essential (primary) hypertension; J90 Pleural effusion, not elsewhere classified; M43.22 Fusion of spine, cervical region; Z53.29 Procedure and treatment not carried out because of patient's decision for other reasons; Z79.52 Long term (current) use of systemic steroids; Z79.82 Long term (current) use of aspirin; Z79.891 Long term (current) use of opiate analgesic
CPT/HCPCS: 72126; 73200; 80047; 85025; 87040; 93971; 96374; 96375; 99284; J2270; Q9967

== ENCOUNTER → 2019-11-20 | Outpatient (REF) | payer MEDICARE ==
[~2019-11-20] MED LIST changes: +ATOR40TA75 PO; +OXYC-517 PO; +PREG200C PO
--- NOTE | 2019-11-20 14:46 | REPPI ---
Clinical: Cough . Comparison: 06/02/2017 . Technique: PA and lateral. Findings: The mediastinum and cardiac silhouette are normal. The lung whitman demonstrate chronic interstitial changes without acute consolidation, effusion, or pneumothorax. The skeletal structures are intact and normal. Evidence for prior anterior cervical fusion. Impression: 1. No acute cardiopulmonary process. Electronically Signed by Carlos Collado MD 11/20/2019 02:39 P
[2019-11-20 18:05] LABS: BASO % 0.4 % (0.0-1.0); EOS # 0.2 10^3/uL (0.0-0.5); EOS % 1.8 % (0.0-3.0); HEMATOCRIT 42.2 % (42.0-52.0); LYMPH % 17.4 % (24.0-44.0); MEAN CORPUSCULAR HEMOGLOBIN 32.3 pg (27.0-33.0); MEAN CORPUSCULAR HGB CONC 33.2 g/dl (32.0-36.5); MEAN CORPUSCULAR VOLUME 97.2 fl (80.0-96.0); MONO % 9.2 % (0.0-5.0); NEUTROPHILS % 70.7 % (36.0-66.0); PLATELET COUNT, AUTOMATED 223 10^3/uL (150-450); RED BLOOD COUNT 4.34 10^6/uL (4.30-6.10); WHITE BLOOD COUNT 11.3 10^3/uL (4.0-10.0)
== END ==
LOC: M PLAIMG 14:06 → M SFHCPLAZ 14:06
PROVIDERS: ATTEND Family Medicine
DX: R05 Cough (principal)

== ENCOUNTER → 2020-03-08 | Outpatient (REF) | payer MEDICARE ==
[~2020-03-08] MED LIST changes: -HYDR-4327 PO; +HYDR-4467 PO; +HYDR-4468 PO; -HYDR-4513 PO
[2020-03-08 17:03] LABS: BASO % 0.2 % (0.0-1.0); EOS # 0.1 10^3/uL (0.0-0.5); EOS % 0.8 % (0.0-3.0); HEMATOCRIT 41.2 % (42.0-52.0); MEAN CORPUSCULAR HEMOGLOBIN 32.6 pg (27.0-33.0); MEAN CORPUSCULAR VOLUME 95.8 fl (80.0-96.0); MONO # 0.8 10^3/uL (0.0-0.8); MONO % 8.6 % (0.0-5.0); NEUTROPHILS # 6.1 10^3/uL (1.5-8.5); PLATELET COUNT, AUTOMATED 192 10^3/uL (150-450); WHITE BLOOD COUNT 8.9 10^3/uL (4.0-10.0)
[2020-03-08 17:28] LABS: ALT/SGPT 44 U/L (12-78); BILIRUBIN,TOTAL 0.9 MG/DL (0.2-1.0); BLOOD UREA NITROGEN 21 MG/DL (7-18); C REACTIVE PROTEIN QUANTITATIV < 0.30 MG/DL (0.00-0.30); CALCIUM LEVEL 8.7 MG/DL (8.8-10.2); CARBON DIOXIDE LEVEL 34 MEQ/L (21-32); CHLORIDE LEVEL 101 MEQ/L (98-107); CPK CREATINE PHOSPHOKINASE 168 U/L (39-308); CREATININE FOR GFR 1.16 MG/DL (0.70-1.30); GLOMERULAR FILTRATION RATE > 60.0 (>49); GLUCOSE, FASTING 114 MG/DL (70-100); POTASSIUM SERUM 4.5 MEQ/L (3.5-5.1); RHEUMATOID FACTOR QUANT < 10.0 IU/ML (<15.0); SODIUM LEVEL 141 MEQ/L (136-145); TOTAL PROTEIN 6.7 GM/DL (6.4-8.2)
[2020-03-08 18:29] LABS: ERYTHROCYTE SEDIMENTATION RATE 2 mm/hr (0-20)
== END ==
LOC: M SFHCPLAZ 14:35
PROVIDERS: ATTEND Family Medicine
DX: R53.83 Other fatigue (principal); M25.40 Effusion, unspecified joint; M79.10 Myalgia, unspecified site

== ENCOUNTER → 2020-03-08 | Outpatient (CLI) | payer MEDICARE ==
[~2020-03-08] MED LIST changes: +VENL150C43 PO
--- NOTE | 2020-03-09 07:45 | REPPI ---
REASON FOR EXAM: Pain and swelling. No trauma. No priors. FINDINGS: No acute fracture or destructive osseous lesion. Electronically Signed by Solomon Rm DO 03/11/2020 10:52 A
--- NOTE | 2020-03-09 08:18 | REPPI ---
REASON FOR EXAM: Pain and swelling. No trauma. No priors. There is moderate asymmetric intradigital joint space narrowing particularly affecting the DIP joints of digits 2, 3, and 5 where there is marginal osteophytosis. There is no para-articular osteopenia. There are no marginal erosions. There is no evidence of acute fracture. There are no significant subluxations. Marginal osteophytosis is seen involving the heads of the 2nd and 3rd metatarsals. IMPRESSION: Chronic changes as described above. Electronically Signed by Solomon Rm DO 03/11/2020 10:52 A
== END ==
LOC: M PLAIMG 14:38
PROVIDERS: ATTEND Family Medicine
DX: M19.041 Primary osteoarthritis, right hand (principal); M25.40 Effusion, unspecified joint
CPT/HCPCS: 36415; 73110; 73130; 80053; 82550; 85025; 85652; 86038; 86140; 86200; 86431; 86747; G0463

== ENCOUNTER 2020-03-13 17:04 | Emergency (ER) | payer MEDICARE ==
[~2020-03-13] VITALS: Ht 170.2 cm; Wt 90.9 kg
[~2020-03-13 17:04] MED LIST changes: -LISI-542 PO; +LISI-898 PO; -VENL150C43 PO
[2020-03-13] MEDS ORDERED: VENL150C43 PO (17:24)
--- NOTE | 2020-03-13 18:26 | REPVR ---
PROCEDURE INFORMATION: Exam: US Duplex Right Upper Extremity Veins, Limited Exam date and time: 03/13/2020 6:13 PM Age: 64 years old Clinical indication: Pain; Swelling (edema) of limb; Upper extremity, right; Arm, upper; Additional info: Right arm pain/swelling R/O dvty, TECHNIQUE: Imaging protocol: Real-time Duplex ultrasound of the Right Upper Extremity with 2-D ortiz scale, color Doppler flow and spectral waveform analysis with image documentation. Limited exam focused on the right upper extremity veins. COMPARISON: US DUPLEX EXT UPPER VEINS UNILATE 09/25/2019 7:40 PM FINDINGS: Right deep veins: Unremarkable. Axillary and brachial veins are patent throughout without thrombus. Normal Doppler waveforms. Normal compressibility and/or augmentation response. Visualized internal jugular and subclavian veins are patent. Right superficial veins: Unremarkable. Visualized cephalic and basilic veins are patent without thrombus. Soft tissues: Unremarkable. IMPRESSION: No evidence of deep vein thrombosis. Electronically signed by: Shen Briggs On 03/13/2020 18:26:19 PM
[2020-03-13 18:36] VITALS: BP 175/99
== END 2020-03-13 18:38 | disposition home or self-care (01) ==
LOC: M ED 17:04
DX: M79.621 Pain in right upper arm (principal); M25.511 Pain in right shoulder

== ENCOUNTER → 2020-04-09 | Outpatient (CLI) | payer MEDICARE ==
[~2020-04-09] MED LIST changes: +LISI-542 PO; -LISI-898 PO; +VENL150C43 PO
== END ==
LOC: M LABSMTC 12:00
PROVIDERS: ATTEND Anesthesiology
DX: Z11.59 Encounter for screening for other viral diseases (principal)
CPT/HCPCS: C9803; U0003

== ENCOUNTER 2020-04-12 08:20 | Outpatient (CLI) | payer MEDICARE ==
[2020-04-12] MEDS ORDERED: propofoL 200 MG/20 ML VIAL ONE (08:21)
[2020-04-12] MEDS ORDERED: LIDOCAINE 2% 100MG/5ML SDV (FOR ANES.) ONE (08:21)
[2020-04-12] MEDS ORDERED: PHENYLephrine HCL 500 MCG/5 ML (100MCG/ML) SYRINGE (J2370) ONE (08:21)
[2020-04-12] MEDS ORDERED: MIDAZOLAM INJ 2MG/2ML VIAL (J2250 PER 1MG) As Ordered ONE (09:39)
[2020-04-12] MEDS ORDERED: fentaNYL 100 MCG/2 ML INJECTION (J3010) As Ordered ONE (09:40)
[2020-04-12 11:43] VITALS: BP 115/71
--- NOTE | 2020-04-12 13:39 | REP ---
MRI RIGHT SHOULDER: TECHNIQUE: Axial T2 fat sat, gradient echo, sagittal oblique T2 fat sat, coronal oblique T1, T2 fat sat. There is mild ill-defined high signal on T2-weighted images along with the supraspinatus tendon compatible with mild tendinopathy/tendinitis. I do not see evidence of a rotator cuff tendon tear. There are mild hypertrophic degenerative changes of the acromioclavicular joint with mild subchondral marrow edema. Acromion is type 2. Biceps tendon is within the bicipital groove with no tenosynovitis. There is no Hill-Sachs deformity. The deltoid muscle demonstrates no abnormal signal. There may be some degree of fraying of the biceps labral complex as well as the superior labrum. There does appear to be an inferior labral tear. This likely extends into the inferior aspect of the anterior labrum. A couple of tiny subcortical cysts are seen in the superolateral humeral head. No other abnormal bone marrow signal is seen. There is a normal amount of joint fluid. IMPRESSION: Supraspinatus tendinopathy, tendinitis. No evidence or rotator cuff tendon tear. Mild hypertrophic degenerative changes of the acromioclavicular joint. There may be fraying of the biceps labral complex and superior labrum. There does appear to be an inferior labral tear. This likely extends into the inferior aspect of the anterior labrum. Electronically Signed by Carroll Belle MD 04/14/2020 11:13 P
--- NOTE | 2020-04-12 14:29 | REPVR ---
PROCEDURE INFORMATION: Exam: MR Cervical Spine Without Contrast Exam date and time: 04/12/2020 10:29 AM Age: 64 years old Clinical indication: Neck pain; Prior surgery; Surgery date: 6+ months; Surgery type: Fusion; Additional info: Cervical pain, RT shoulder pain TECHNIQUE: Imaging protocol: Multiplanar magnetic resonance images of the cervical spine without contrast. COMPARISON: CT Spine,cervical w/contrast 09/25/2019 4:57 PM FINDINGS: Vertebrae: Ventral fixation plate and screws noted at C4, C5, C6 and C7. There is straightening of the normal cervical lordosis. There is no fracture or listhesis. Spinal cord: The cervicomedullary junction and cervical cord appear normal. C2-C3: There is a shallow disc osteophyte complex. There is mild facet hypertrophy. There is moderate right neural foraminal narrowing. C3-C4: There is a diffuse disc osteophyte complex. There is mild facet hypertrophy. There is mild bilateral neural foraminal narrowing. C4-C5: There is a diffuse disc osteophyte complex. There is mild facet hypertrophy. There is severe right and mild left neural foraminal narrowing. C5-C6: There is a diffuse disc osteophyte complex. There is mild facet hypertrophy. There is severe bilateral neural foraminal narrowing. C6-C7: There is a diffuse disc osteophyte complex. There is mild facet hypertrophy. There is severe right and moderate left neural foraminal narrowing. C7-T1: No significant disc disease. No significant spinal stenosis. Vertebral arteries: Expected flow voids in the vertebral arteries. Soft tissues: Unremarkable. IMPRESSION: 1. C4-C7 ventral fusion changes. 2. Degenerative disc disease and spondylosis, with multilevel moderate to severe neural foraminal narrowing. Electronically signed by: Cristin Goodman On 04/12/2020 14:28:46 PM
== END 2020-04-12 11:50 | disposition home or self-care (01) ==
LOC: M SDC 08:20
PROVIDERS: ATTEND Orthopaedic Surgery
DX: M43.22 Fusion of spine, cervical region (principal); M50.30 Other cervical disc degeneration, unspecified cervical region; M47.812 Spondylosis without myelopathy or radiculopathy, cervical region; M99.51 Intervertebral disc stenosis of neural canal of cervical region; M75.81 Other shoulder lesions, right shoulder; M48.02 Spinal stenosis, cervical region; M54.2 Cervicalgia; M25.511 Pain in right shoulder
CPT/HCPCS: 72141; 73221; 99156; 99157; J2250; J2370; J3010

== ENCOUNTER → 2020-05-01 | Outpatient (CLI) | payer MEDICARE ==
[2020-07-22 14:20] LABS: GLUCOSE, FASTING SEE SEPARATE REPORT
== END ==
LOC: M LAB 10:49
DX: E87.5 Hyperkalemia (principal)

== ENCOUNTER → 2020-05-01 | Outpatient (CLI) | payer MEDICARE ==
[2020-05-27 16:05] LABS: BASO % 0.2 % (0.0-1.0); EOS % 0.4 % (0.0-3.0); HEMATOCRIT 45.7 % (42.0-52.0); LYMPH # 1.6 10^3/uL (1.5-5.0); LYMPH % 19.3 % (24.0-44.0); MEAN CORPUSCULAR HEMOGLOBIN 32.6 pg (27.0-33.0); MEAN CORPUSCULAR HGB CONC 32.8 g/dl (32.0-36.5); MEAN CORPUSCULAR VOLUME 99.3 fl (80.0-96.0); MONO # 0.5 10^3/uL (0.0-0.8); MONO % 6.4 % (0.0-5.0); PLATELET COUNT, AUTOMATED 212 10^3/uL (150-450); WHITE BLOOD COUNT 8.3 10^3/uL (4.0-10.0)
[2020-05-27 16:07] LABS: ERYTHROCYTE SEDIMENTATION RATE 5 mm/hr (0-20)
== END ==
LOC: M LAB 10:49
PROVIDERS: ATTEND Orthopaedic Surgery
DX: M70.21 Olecranon bursitis, right elbow (principal); Z79.899 Other long term (current) drug therapy

== ENCOUNTER → 2020-11-14 | Outpatient (REF) | payer MEDICARE ==
[~2020-11-14] MED LIST changes: -LISI-542 PO; +LISI-898 PO
[2020-11-14 14:35] LABS: FREE T4 0.84 NG/DL (0.76-1.46); THYROID STIMULATING HORMONE 0.717 uIU/ML (0.358-3.740)
== END ==
LOC: M SFHCPLAZ 11:46
PROVIDERS: ATTEND Family Medicine
DX: R63.5 Abnormal weight gain (principal)
CPT/HCPCS: 36415; 84439; 84443; G0463

== ENCOUNTER → 2020-12-06 | Outpatient (CLI) | payer MEDICARE ==
[2020-12-06 15:34] LABS: BLOOD UREA NITROGEN 18 MG/DL (7-18); CALCIUM LEVEL 8.8 MG/DL (8.8-10.2); CARBON DIOXIDE LEVEL 34 MEQ/L (21-32); CHLORIDE LEVEL 106 MEQ/L (98-107); CREATININE FOR GFR 0.92 MG/DL (0.70-1.30); GLOMERULAR FILTRATION RATE > 60.0 (>49); GLUCOSE, FASTING 81 MG/DL (70-100); POTASSIUM SERUM 4.7 MEQ/L (3.5-5.1); SODIUM LEVEL 143 MEQ/L (136-145)
== END ==
LOC: M LAB 14:33
PROVIDERS: ATTEND Family Medicine
DX: Z01.818 Encounter for other preprocedural examination (principal); I10 Essential (primary) hypertension

== ENCOUNTER → 2020-12-12 | Outpatient (CLI) | payer MEDICARE | LOC: M LABSMTC 10:01 | PROVIDERS: ATTEND Anesthesiology | DX: Z20.822 Contact with and (suspected) exposure to COVID-19 (principal) | CPT/HCPCS: 93005; G0463; U0003 ==

== ENCOUNTER 2020-12-17 12:50 | Outpatient (CLI) | payer MEDICARE ==
[2020-12-17] MEDS ORDERED: propofoL 200 MG/20 ML VIAL ONE (12:51)
[2020-12-17] MEDS ORDERED: LIDOCAINE 1% SDV 5ML VIAL ONE (12:51)
[2020-12-17] MEDS ORDERED: PHENYLephrine 500MCG 5ML (100MCG/ML) SYRINGE ONE (12:51)
[2020-12-17] MEDS ORDERED: MIDAZOLAM INJ 2MG/2ML VIAL (J2250 PER 1MG) As Ordered ONE (13:39)
--- NOTE | 2020-12-17 15:18 | REPVR ---
PROCEDURE INFORMATION: Exam: MR Cervical Spine Without Contrast Exam date and time: 12/17/2020 3:00 PM Age: 65 years old Clinical indication: Radiculopathy . TECHNIQUE: Imaging protocol: Multiplanar magnetic resonance images of the cervical spine without contrast. COMPARISON: MRI-Spine,Cervical without con 04/12/2020 9:41 AM FINDINGS: Vertebrae: The patient has had prior anterior cervical fusion from C4-C7. Surgical hardware causes moderate magnetic susceptibility artifact which limits evaluation of the surrounding anatomy. Spinal cord: Normal signal. No cord compression. C2-C3: There is disc desiccation. There is bilateral uncovertebral joint arthropathy, worse on the right. There is a small right subarticular disc protrusion. There is moderate right-sided neuroforaminal narrowing. C3-C4: There is disc desiccation. There is a moderate disc/osteophyte complex that flattens the ventral thecal sac. There is bilateral uncovertebral joint arthropathy, worse on the right. There is moderate right-sided neuroforaminal narrowing. C4-C5: There is bilateral uncovertebral joint arthropathy, worse on the right. There is moderate bilateral neuroforaminal narrowing, right worse than left. C5-C6: There is moderate bilateral uncovertebral joint arthropathy. There is mild/moderate bilateral neuroforaminal narrowing. C6-C7: There is moderate bilateral uncovertebral joint arthropathy. There is mild/moderate bilateral neuroforaminal narrowing. C7-T1: No significant disc disease. No significant spinal stenosis. Soft tissues: Unremarkable. IMPRESSION: 1. The patient has had prior anterior cervical fusion from C4-C7. Surgical hardware causes moderate magnetic susceptibility artifact which limits evaluation of the surrounding anatomy. Please correlate with surgical history. 2. Multilevel uncovertebral joint arthropathy causing neuroforaminal narrowing as described above. Electronically signed by: Kyle Vora On 12/17/2020 15:18:09 PM
[2020-12-17 15:35] VITALS: BP 113/80
--- NOTE | 2020-12-17 17:06 | REP ---
INDICATION: SPONDYLOSIS CERV RE; RT SHOU PN PT TO BE SEDATED. COMPARISON: Comparison right shoulder MRI study April 12, 2020. Comparison right shoulder CT imaging September 25, 2019.. TECHNIQUE: Axial, oblique coronal, and oblique sagittal imaging planes utilized. T1 and T2 weighted scans are included with without fat saturation in the usual fashion. FINDINGS: The right glenohumeral and acromioclavicular joints are normally aligned. There is mild AC joint hypertrophy consistent with osteoarthritis. This is somewhat more prominent than on the CT study from September 25, 2019. No change from comparison MRI study April 12, 2020. There is increased signal intensity in slight swelling in the distal supraspinatus tendon on oblique coronal T1 weighted scans consistent with tendinitis tendinosis change. This is also stable finding from the prior MRI study. No focal T2 hyperintense cuff lesion is seen. There is mild subcortical cyst formation in the posterolateral humeral head unchanged. Heterogeneous signal intensity is seen in the superior articular labral cartilage. No carlos a tear is seen. There is however a small paralabral cyst in the anterior edge of the anterior labrum consistent with a anterior labral cartilage tear. This is quite similar and essentially unchanged when compared with the April 12, 2020 prior MRI study. No posterior labral cartilage disruption is seen. The infraspinatus and subscapularis tendons appear intact. Biceps tendon is in the bony bicipital groove and appears to be intact. No juxta-articular cyst or mass is seen. 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 Evidence of anterior labral cartilage tear with para labral cyst formation anteriorly and inferiorly. <Electronically signed by Bolivar Orantes > 12/17/20 [id number]
== END 2020-12-17 15:35 | disposition home or self-care (01) ==
LOC: M RAD 12:50
PROVIDERS: ATTEND Psychiatry & Neurology Neurology
DX: M43.02 Spondylolysis, cervical region (principal); M54.2 Cervicalgia; R20.2 Paresthesia of skin; M25.511 Pain in right shoulder; M75.101 Unspecified rotator cuff tear or rupture of right shoulder, not specified as traumatic
CPT/HCPCS: 72141; 73221; J2250; J2370

== ENCOUNTER → 2021-02-27 | Outpatient (CLI) | payer MEDICARE | LOC: M CARPUL 08:45 | PROVIDERS: ATTEND Internal Medicine Pulmonary Disease | DX: G47.33 Obstructive sleep apnea (adult) (pediatric) (principal) ==

== ENCOUNTER → 2021-03-13 | Outpatient (REF) | payer MEDICARE ==
[~2021-03-13] MED LIST changes: +OMEP40CA4 PO; -OMEP40CA97 PO
[2021-03-13 13:23] LABS: HEMATOCRIT 46.8 % (42.0-52.0); HEMOGLOBIN 14.9 g/dl (13.5-17.5); MEAN CORPUSCULAR HGB CONC 31.8 g/dl (32.0-36.5); MEAN CORPUSCULAR VOLUME 100.6 fl (80.0-96.0); PLATELET COUNT, AUTOMATED 189 10^3/uL (150-450); RED BLOOD COUNT 4.65 10^6/uL (4.30-6.10); WHITE BLOOD COUNT 7.4 10^3/uL (4.0-10.0)
[2021-03-13 14:40] LABS: ALBUMIN 3.6 GM/DL (3.2-5.2); ALT/SGPT 30 U/L (12-78); BILIRUBIN,TOTAL 1.2 MG/DL (0.2-1.0); BLOOD UREA NITROGEN 22 MG/DL (7-18); CALCIUM LEVEL 8.7 MG/DL (8.8-10.2); CARBON DIOXIDE LEVEL 32 MEQ/L (21-32); CHLORIDE LEVEL 105 MEQ/L (98-107); CREATININE FOR GFR 0.93 MG/DL (0.70-1.30); GLOMERULAR FILTRATION RATE > 60.0 (>49); GLUCOSE, FASTING 99 MG/DL (70-100); POTASSIUM SERUM 5.4 MEQ/L (3.5-5.1); SODIUM LEVEL 140 MEQ/L (136-145); TOTAL PROTEIN 6.3 GM/DL (6.4-8.2)
== END ==
LOC: M SFHCPLAZ 11:05
PROVIDERS: ATTEND Family Medicine
DX: Z01.818 Encounter for other preprocedural examination (principal); M75.21 Bicipital tendinitis, right shoulder; G47.33 Obstructive sleep apnea (adult) (pediatric); E27.3 Drug-induced adrenocortical insufficiency; I10 Essential (primary) hypertension
CPT/HCPCS: 36415; 80053; 85027; G0463

== ENCOUNTER → 2021-07-28 | Outpatient (CLI) | payer MEDICARE ==
--- NOTE | 2021-07-28 17:17 | DEXAMM ---
INDICATION: PREMATURE OSTEOPOROSIS. COMPARISON: 11/26/2016. TECHNIQUE: Bone density was measured using dual-energy x-ray absorptiometry (DEXA). FINDINGS: AP SPINE L1-L4 BMD 1.276 g/cm2 Young Adult T-Score 0.7 Age Matched Z-Score 0.7. LT FEMUR, TOTAL BMD 0.923 g/cm2 Young Adult T-Score -0.7 Age Matched Z-Score -0.7. LT NECK BMD 0.838 g/cm2 Young Adult T-Score -1.4 Age Matched Z-Score -0.7. RT FEMUR, TOTAL BMD 0.887 g/cm2 Young Adult T-Score -1.0 Age Matched Z-Score -1.0. RT NECK BMD 0.792 g/cm2 Young Adult T-Score -1.8 Age Matched Z-Score -1.1. IMPRESSION: There is normal bone density of the spine. There is low bone density of the left hip. There is low bone density of the right hip. The density of the spine has increased 6.4% since the initial exam on 11/26/2016. The density of the left hip has increased 8.8% since initial exam on 11/26/2016. The density of the right hip has increased 7.6% since the initial exam on 11/26/2016. FOLLOW-UP: Recommendation for the next bone density exam: 2 years. <Electronically signed by Carroll Belle > 07/28/21 [id number]
== END ==
LOC: M WHC 13:32
PROVIDERS: ATTEND Internal Medicine Endocrinology, Diabetes & Metabolism
DX: M81.8 Other osteoporosis without current pathological fracture (principal)

== ENCOUNTER → 2021-08-07 | Outpatient (REF) | payer MEDICARE | LOC: M SFHCPLAZ 17:14 | PROVIDERS: ATTEND Family Medicine | DX: R05.9 Cough, unspecified (principal) ==

== ENCOUNTER → 2021-09-18 | Outpatient (CLI) | payer MEDICARE ==
[2021-09-18 09:26] LABS: BASO % 0.3 % (0.0-1.0); EOS # 0.1 10^3/uL (0.0-0.5); EOS % 1.5 % (0.0-3.0); HEMATOCRIT 44.2 % (42.0-52.0); HEMOGLOBIN 14.5 g/dl (13.5-17.5); LYMPH # 1.5 10^3/uL (1.5-5.0); LYMPH % 22.5 % (24.0-44.0); MEAN CORPUSCULAR HEMOGLOBIN 31.3 pg (27.0-33.0); MEAN CORPUSCULAR HGB CONC 32.8 g/dl (32.0-36.5); MEAN CORPUSCULAR VOLUME 95.5 fl (80.0-96.0); MONO # 0.5 10^3/uL (0.0-0.8); MONO % 7.5 % (2.0-8.0); NEUTROPHILS # 4.6 10^3/uL (1.5-8.5); NEUTROPHILS % 67.9 % (36.0-66.0); PLATELET COUNT, AUTOMATED 179 10^3/uL (150-450); RED BLOOD COUNT 4.63 10^6/uL (4.30-6.10); WHITE BLOOD COUNT 6.8 10^3/uL (4.0-10.0)
== END ==
LOC: M LAB 08:13
PROVIDERS: ATTEND Family Medicine
DX: R05.9 Cough, unspecified (principal)

== ENCOUNTER → 2021-10-06 | Outpatient (CLI) | payer MEDICARE | LOC: M PAIN 10:30 | PROVIDERS: ATTEND Nurse Practitioner Family | DX: G57.91 Unspecified mononeuropathy of right lower limb (principal); G89.29 Other chronic pain; G47.33 Obstructive sleep apnea (adult) (pediatric); Z86.59 Personal history of other mental and behavioral disorders; Z88.8 Allergy status to other drugs, medicaments and biological substances; Z79.82 Long term (current) use of aspirin; Z79.891 Long term (current) use of opiate analgesic; Z79.899 Other long term (current) drug therapy ==

== ENCOUNTER → 2021-10-06 | Outpatient (CLI) | payer MEDICARE ==
[~2021-10-06] MED LIST changes: +ISOVUE-300 61% 50ML VIAL As Ordered ONE; +LIDOCAINE 1% MDV 20ML VIAL As Ordered ONE; +TRIAMCINOLONE ACETONIDE SUSP 40 MG/ML VIAL (J3301) As Ordered ONE
--- NOTE | 2021-10-06 17:19 | REP ---
INDICATION: SUPERIOR GLENOID LABRUM LESION OF RIGHT SHOULDER. COMPARISON: None. TECHNIQUE: The procedure was performed under the direct supervision of Dr. Belle. The benefits and risks including but not limited to pain infection bleeding and anaphylaxis were explained to the patient and informed consent was obtained. The right glenohumeral joint space was localized using fluoroscopic guidance. The skin was prepped and draped in a sterile fashion. 1% lidocaine was used as a local anesthetic. Using fluoroscopic guidance, and last image hold technology, a 22 gauge spinal needle was inserted and advanced into the joint. 1 mL of Isovue-300 was injected to verify placement. 6 mL of a solution containing 5 mL of 1% lidocaine and 1 mL of Kenalog 40 mg was injected. The needle was then removed. The patient tolerated the procedure well and there were no immediate complications. Less than 6 seconds of fluoroscopy time was utilized for this procedure. FINDINGS: None IMPRESSION: Fluoro guidance for right shoulder injection. <Electronically signed by Bharath Pires > 10/06/21 [id number] <Electronically signed by Carroll Belle > 10/06/21 [id number]
== END ==
LOC: M RADPRO 13:03
PROVIDERS: ATTEND Orthopaedic Surgery
DX: S43.431D Superior glenoid labrum lesion of right shoulder, subsequent encounter (principal); Y99.8 Other external cause status; G57.91 Unspecified mononeuropathy of right lower limb; G89.29 Other chronic pain; G47.33 Obstructive sleep apnea (adult) (pediatric); Z86.59 Personal history of other mental and behavioral disorders; Z88.8 Allergy status to other drugs, medicaments and biological substances; Z79.82 Long term (current) use of aspirin; Z79.891 Long term (current) use of opiate analgesic; Z79.899 Other long term (current) drug therapy; Y92.89 Other specified places as the place of occurrence of the external cause; Y93.89 Activity, other specified; X58.XXXA Exposure to other specified factors, initial encounter
CPT/HCPCS: 20610; 77002; G0463; J3301; Q9967

== ENCOUNTER → 2021-10-23 | Outpatient (REF) | payer MEDICARE ==
[~2021-10-23] MED LIST changes: -ISOVUE-300 61% 50ML VIAL As Ordered ONE; -LIDOCAINE 1% MDV 20ML VIAL As Ordered ONE; -LISI-898 PO; +LISI5TAB11 PO; -TRIAMCINOLONE ACETONIDE SUSP 40 MG/ML VIAL (J3301) As Ordered ONE
[2021-10-30 16:08] LABS: CREATININE, URINE 279.8 mg/dL (20.0-300.0); OPIATES, URINE Negative ng/mL (Cutoff=300); OXYCODONE URINE Positive (.); OXYCODONE, URINE CONFIRM 6898 ng/mL (Cutoff=100); OXYCODONE/OXYMORPH, URINE Positive (Cutoff=100); OXYMORPHONE, URINE Positive (.); OXYMORPHONE, URINE CONFIRM >10000 ng/mL (Cutoff=100)
== END ==
LOC: M SFHCPLAZ 15:05
PROVIDERS: ATTEND Family Medicine
DX: G90.521 Complex regional pain syndrome I of right lower limb (principal)

== ENCOUNTER → 2021-10-30 | Outpatient (CLI) | payer MEDICARE | LOC: M LABSMTC 12:53 | PROVIDERS: ATTEND Anesthesiology | DX: Z20.822 Contact with and (suspected) exposure to COVID-19 (principal) ==

== ENCOUNTER → 2021-11-04 | Outpatient (CLI) | payer MEDICARE ==
[~2021-11-04] MED LIST changes: +BUPIVACAINE HCL 0.25% 30ML VIAL As Ordered ONE; +ISOVUE-M 300 61% 15ML VIAL As Ordered ONE; +LIDOCAINE 1% SDV 30ML VIAL As Ordered ONE; +TRIAMCINOLONE ACETONIDE SUSP 40 MG/ML VIAL (J3301) As Ordered ONE; +diazePAM 5MG TABLET As Ordered ONE; +oxyCODONE 5MG TAB As Ordered ONE
== END ==
LOC: M PAIN 13:20
PROVIDERS: ATTEND Anesthesiology
DX: M79.2 Neuralgia and neuritis, unspecified (principal); G47.33 Obstructive sleep apnea (adult) (pediatric); I10 Essential (primary) hypertension; F32.9 Major depressive disorder, single episode, unspecified; F41.0 Panic disorder [episodic paroxysmal anxiety]; E78.1 Pure hyperglyceridemia; G89.29 Other chronic pain; J30.81 Allergic rhinitis due to animal (cat) (dog) hair and dander; Z88.8 Allergy status to other drugs, medicaments and biological substances; Z79.891 Long term (current) use of opiate analgesic; Z79.82 Long term (current) use of aspirin; Z79.899 Other long term (current) drug therapy
CPT/HCPCS: 64425; J3301

== ENCOUNTER → 2021-11-19 | Outpatient (CLI) | payer MEDICARE ==
[~2021-11-19] MED LIST changes: -BUPIVACAINE HCL 0.25% 30ML VIAL As Ordered ONE; -ISOVUE-M 300 61% 15ML VIAL As Ordered ONE; -LIDOCAINE 1% SDV 30ML VIAL As Ordered ONE; -TRIAMCINOLONE ACETONIDE SUSP 40 MG/ML VIAL (J3301) As Ordered ONE; -diazePAM 5MG TABLET As Ordered ONE; -oxyCODONE 5MG TAB As Ordered ONE
== END ==
LOC: M PAIN 11:00
PROVIDERS: ATTEND Nurse Practitioner Family
DX: G89.29 Other chronic pain (principal); M79.2 Neuralgia and neuritis, unspecified; G47.33 Obstructive sleep apnea (adult) (pediatric); I10 Essential (primary) hypertension; F32.9 Major depressive disorder, single episode, unspecified; F41.0 Panic disorder [episodic paroxysmal anxiety]; M54.50 Low back pain, unspecified; E78.1 Pure hyperglyceridemia; G90.521 Complex regional pain syndrome I of right lower limb; Z79.82 Long term (current) use of aspirin; Z79.899 Other long term (current) drug therapy; Z79.891 Long term (current) use of opiate analgesic; Z88.8 Allergy status to other drugs, medicaments and biological substances; J30.81 Allergic rhinitis due to animal (cat) (dog) hair and dander

== ENCOUNTER → 2021-11-25 | Outpatient (CLI) | payer MEDICARE ==
[2021-11-25 08:29] LABS: BASO % 0.2 % (0.0-1.0); EOS # 0.2 10^3/uL (0.0-0.5); EOS % 2.5 % (0.0-3.0); LYMPH # 1.4 10^3/uL (1.5-5.0); MEAN CORPUSCULAR HGB CONC 31.7 g/dl (32.0-36.5); MEAN CORPUSCULAR VOLUME 97.6 fl (80.0-96.0); MONO # 0.7 10^3/uL (0.0-0.8); MONO % 8.9 % (2.0-8.0); NEUTROPHILS # 5.7 10^3/uL (1.5-8.5); PLATELET COUNT, AUTOMATED 198 10^3/uL (150-450); WHITE BLOOD COUNT 8.1 10^3/uL (4.0-10.0)
[2021-11-25 09:05] LABS: ALBUMIN 3.3 GM/DL (3.2-5.2); BILIRUBIN,TOTAL 0.5 MG/DL (0.2-1.0); CALCIUM LEVEL 8.3 MG/DL (8.8-10.2); CHOLESTEROL RISK RATIO 2.933 (<5); CREATININE FOR GFR 1.49 MG/DL (0.70-1.30); GLOMERULAR FILTRATION RATE 50.5 (>49); MAGNESIUM LEVEL 2.1 MG/DL (1.8-2.4); POTASSIUM SERUM 4.8 MEQ/L (3.5-5.1); TOTAL PROTEIN 6.4 GM/DL (6.4-8.2)
[2021-11-25 09:14] LABS: MALB URINE SIEMENS 15.5 MG/L; MAU/CREAT RATIO 6.7 MCG/MG (0.0-30.0)
== END ==
LOC: M LAB 07:31
PROVIDERS: ATTEND Family Medicine
DX: Z12.5 Encounter for screening for malignant neoplasm of prostate (principal); R05.9 Cough, unspecified; I10 Essential (primary) hypertension; E78.5 Hyperlipidemia, unspecified; F41.0 Panic disorder [episodic paroxysmal anxiety]
CPT/HCPCS: 36415; 80053; 80061; 82043; 83735; 85025; G0103

== ENCOUNTER → 2022-03-19 | Outpatient (CLI) | payer MEDICARE ==
[~2022-03-19] MED LIST changes: +ISOVUE-300 61% 50ML VIAL As Ordered ONE; +LIDOCAINE 1% MDV 20ML VIAL As Ordered ONE; +TRIAMCINOLONE ACETONIDE SUSP 40 MG/ML VIAL (J3301) As Ordered ONE
== END ==
LOC: M RADPRO 15:24
PROVIDERS: ATTEND Orthopaedic Surgery
DX: M25.511 Pain in right shoulder (principal)
CPT/HCPCS: 20610; 76000; J3301; Q9967

== ENCOUNTER → 2022-03-23 | Outpatient (CLI) | payer MEDICARE ==
[~2022-03-23] MED LIST changes: -ISOVUE-300 61% 50ML VIAL As Ordered ONE; -LIDOCAINE 1% MDV 20ML VIAL As Ordered ONE; -TRIAMCINOLONE ACETONIDE SUSP 40 MG/ML VIAL (J3301) As Ordered ONE
== END ==
LOC: M PAIN 11:15
PROVIDERS: ATTEND Nurse Practitioner Family
DX: G57.91 Unspecified mononeuropathy of right lower limb (principal); G89.29 Other chronic pain; G47.33 Obstructive sleep apnea (adult) (pediatric); Z86.59 Personal history of other mental and behavioral disorders; Z88.8 Allergy status to other drugs, medicaments and biological substances; Z79.82 Long term (current) use of aspirin; Z79.891 Long term (current) use of opiate analgesic; Z79.899 Other long term (current) drug therapy

== ENCOUNTER → 2022-04-08 | Outpatient (CLI) | payer MEDICARE ==
[2022-04-08 14:43] LABS: CALCIUM LEVEL 8.7 MG/DL (8.8-10.2); CREATININE FOR GFR 1.32 MG/DL (0.70-1.30); GLOMERULAR FILTRATION RATE 58.1 (>49); MAGNESIUM LEVEL 2.1 MG/DL (1.8-2.4); POTASSIUM SERUM 4.5 MEQ/L (3.5-5.1)
[2022-04-08 14:52] LABS: TOTAL 25(OH) VITAMIN D 43.8 NG/ML (30.0-100.0)
== END ==
LOC: M PLALAB 10:28
PROVIDERS: ATTEND Family Medicine
DX: M85.9 Disorder of bone density and structure, unspecified (principal); G44.89 Other headache syndrome; R79.89 Other specified abnormal findings of blood chemistry

== ENCOUNTER → 2022-04-26 | Outpatient (CLI) | payer MEDICARE | LOC: M LABSMTC 09:32 | PROVIDERS: ATTEND Anesthesiology | DX: Z01.812 Encounter for preprocedural laboratory examination (principal); Z20.822 Contact with and (suspected) exposure to COVID-19 ==

== ENCOUNTER → 2022-04-28 | Outpatient (CLI) | payer MEDICARE ==
[~2022-04-28] MED LIST changes: +BUPIVACAINE HCL 0.25% 30ML VIAL As Ordered ONE; +ISOVUE-M 300 61% 15ML VIAL As Ordered ONE; +LIDOCAINE 1% SDV 30ML VIAL As Ordered ONE; +TRIAMCINOLONE ACETONIDE SUSP 40 MG/ML VIAL (J3301) As Ordered ONE; +diazePAM 5MG TABLET As Ordered ONE; +oxyCODONE 5MG TAB As Ordered ONE
== END ==
LOC: M PAIN 15:00
PROVIDERS: ATTEND Anesthesiology
DX: M79.2 Neuralgia and neuritis, unspecified (principal); G47.33 Obstructive sleep apnea (adult) (pediatric); Z86.59 Personal history of other mental and behavioral disorders; Z88.8 Allergy status to other drugs, medicaments and biological substances; Z79.82 Long term (current) use of aspirin; Z79.891 Long term (current) use of opiate analgesic; Z79.899 Other long term (current) drug therapy
CPT/HCPCS: 64425; J3301; Q9967

== ENCOUNTER → 2022-05-12 | Outpatient (CLI) | payer MEDICARE ==
[~2022-05-12] MED LIST changes: -BUPIVACAINE HCL 0.25% 30ML VIAL As Ordered ONE; -ISOVUE-M 300 61% 15ML VIAL As Ordered ONE; -LIDOCAINE 1% SDV 30ML VIAL As Ordered ONE; -TRIAMCINOLONE ACETONIDE SUSP 40 MG/ML VIAL (J3301) As Ordered ONE; -diazePAM 5MG TABLET As Ordered ONE; -oxyCODONE 5MG TAB As Ordered ONE
== END ==
LOC: M PAIN 15:00
PROVIDERS: ATTEND Anesthesiology
DX: G57.91 Unspecified mononeuropathy of right lower limb (principal); G90.521 Complex regional pain syndrome I of right lower limb; E29.1 Testicular hypofunction; E27.3 Drug-induced adrenocortical insufficiency; G47.33 Obstructive sleep apnea (adult) (pediatric); I10 Essential (primary) hypertension; F32.A Depression, unspecified; F41.0 Panic disorder [episodic paroxysmal anxiety]; M54.40 Lumbago with sciatica, unspecified side; E78.1 Pure hyperglyceridemia; J30.81 Allergic rhinitis due to animal (cat) (dog) hair and dander; Z79.82 Long term (current) use of aspirin; Z79.899 Other long term (current) drug therapy; Z79.891 Long term (current) use of opiate analgesic; Z88.8 Allergy status to other drugs, medicaments and biological substances; T40.2X5A Adverse effect of other opioids, initial encounter

== ENCOUNTER → 2022-05-13 | Outpatient (CLI) | payer MEDICARE | LOC: M LABSMTC 09:14 | PROVIDERS: ATTEND Anesthesiology | DX: Z11.52 Encounter for screening for COVID-19 (principal) ==

== ENCOUNTER → 2022-05-22 | Outpatient (CLI) | payer MEDICARE ==
[~2022-05-22] MED LIST changes: +ISOVUE-300 61% 5ML SYRINGE As Ordered ONE; +LIDOCAINE 1% MDV 20ML VIAL As Ordered ONE; +TRIAMCINOLONE ACETONIDE SUSP 40 MG/ML VIAL (J3301) As Ordered ONE
== END ==
LOC: M RADPRO 15:13
PROVIDERS: ATTEND Orthopaedic Surgery
DX: M25.511 Pain in right shoulder (principal)
CPT/HCPCS: 20610; 76000; J3301; Q9967

== ENCOUNTER → 2022-06-17 | Outpatient (CLI) | payer MEDICARE ==
[~2022-06-17] MED LIST changes: -ISOVUE-300 61% 5ML SYRINGE As Ordered ONE; -LIDOCAINE 1% MDV 20ML VIAL As Ordered ONE; -TRIAMCINOLONE ACETONIDE SUSP 40 MG/ML VIAL (J3301) As Ordered ONE
== END ==
LOC: M PAIN 10:30
PROVIDERS: ATTEND Nurse Practitioner Family
DX: G89.29 Other chronic pain (principal); G57.91 Unspecified mononeuropathy of right lower limb; E29.1 Testicular hypofunction; G47.33 Obstructive sleep apnea (adult) (pediatric); I10 Essential (primary) hypertension; F32.9 Major depressive disorder, single episode, unspecified; F41.0 Panic disorder [episodic paroxysmal anxiety]; M54.40 Lumbago with sciatica, unspecified side; E78.1 Pure hyperglyceridemia; J30.81 Allergic rhinitis due to animal (cat) (dog) hair and dander; Z79.82 Long term (current) use of aspirin; Z79.891 Long term (current) use of opiate analgesic; Z79.899 Other long term (current) drug therapy; T40.2X5A Adverse effect of other opioids, initial encounter; Z88.8 Allergy status to other drugs, medicaments and biological substances

== ENCOUNTER → 2022-07-24 | Outpatient (CLI) | payer MEDICARE ==
[2022-07-24 07:06] LABS: HEMATOCRIT 41.5 % (42.0-52.0); HEMOGLOBIN 13.7 g/dl (13.5-17.5); MEAN CORPUSCULAR HEMOGLOBIN 33.2 pg (27.0-33.0); MEAN CORPUSCULAR VOLUME 100.5 fl (80.0-96.0); PLATELET COUNT, AUTOMATED 188 10^3/uL (150-450); RED BLOOD COUNT 4.13 10^6/uL (4.30-6.10); WHITE BLOOD COUNT 6.9 10^3/uL (4.0-10.0)
[2022-07-24 08:01] LABS: ALBUMIN 3.5 GM/DL (3.2-5.2); ALT/SGPT 29 U/L (12-78); BILIRUBIN,TOTAL 1.1 MG/DL (0.2-1.0); BLOOD UREA NITROGEN 20 MG/DL (7-18); CALCIUM LEVEL 8.2 MG/DL (8.8-10.2); CARBON DIOXIDE LEVEL 32 MEQ/L (21-32); CHLORIDE LEVEL 103 MEQ/L (98-107); CHOLESTEROL LEVEL 95 MG/DL (<200); CHOLESTEROL RISK RATIO 2.638 (<5); CREATININE FOR GFR 0.91 MG/DL (0.70-1.30); GLOMERULAR FILTRATION RATE > 60.0 (>49); GLUCOSE, FASTING 103 MG/DL (70-100); HDL CHOLESTEROL 36 MG/DL (>40); HEMOGLOBIN A1c 5.6 %; LDL CHOLESTEROL 27 MG/DL (<100); NON-HDL-C 59 MG/DL; SODIUM LEVEL 138 MEQ/L (136-145); TOTAL PROTEIN 6.2 GM/DL (6.4-8.2); TRIGLYCERIDES LEVEL 158 MG/DL (<150)
[2022-07-24 09:57] LABS: TOTAL 25(OH) VITAMIN D 42.7 NG/ML (30.0-100.0)
[2022-07-25 16:07] LABS: TESTOSTERONE FREE (DIRECT) 1.1 pg/mL (6.6-18.1)
== END ==
LOC: M LAB 06:29
PROVIDERS: ATTEND Family Medicine
DX: E78.1 Pure hyperglyceridemia (principal); I10 Essential (primary) hypertension; R53.83 Other fatigue; G47.33 Obstructive sleep apnea (adult) (pediatric); E29.1 Testicular hypofunction; Z13.1 Encounter for screening for diabetes mellitus; Z79.899 Other long term (current) drug therapy

== ENCOUNTER → 2022-08-17 | Outpatient (CLI) | payer MEDICARE | LOC: M PAIN 10:45 | PROVIDERS: ATTEND Nurse Practitioner Family | DX: G57.91 Unspecified mononeuropathy of right lower limb (principal); E27.8 Other specified disorders of adrenal gland; E29.1 Testicular hypofunction; T40.2X5A Adverse effect of other opioids, initial encounter; G47.33 Obstructive sleep apnea (adult) (pediatric); I10 Essential (primary) hypertension; F32.9 Major depressive disorder, single episode, unspecified; F41.0 Panic disorder [episodic paroxysmal anxiety]; M54.40 Lumbago with sciatica, unspecified side; E78.1 Pure hyperglyceridemia; Z79.891 Long term (current) use of opiate analgesic; Z79.82 Long term (current) use of aspirin; Z79.899 Other long term (current) drug therapy; Z88.8 Allergy status to other drugs, medicaments and biological substances; J30.81 Allergic rhinitis due to animal (cat) (dog) hair and dander ==

== ENCOUNTER → 2022-09-21 | Outpatient (CLI) | payer MEDICARE ==
[~2022-09-21] MED LIST changes: +ISOVUE-300 61% 50ML VIAL As Ordered ONE; +LIDOCAINE 1% MDV 20ML VIAL As Ordered ONE; +TRIAMCINOLONE ACETONIDE SUSP 40MG/ML 1ML VIAL As Ordered ONE
== END ==
LOC: M RAD 14:38
PROVIDERS: ATTEND Orthopaedic Surgery
DX: M25.511 Pain in right shoulder (principal)
CPT/HCPCS: 20610; 76000; Q9967

== ENCOUNTER → 2022-10-22 | Outpatient (CLI) | payer MEDICARE ==
[~2022-10-22] MED LIST changes: -ISOVUE-300 61% 50ML VIAL As Ordered ONE; -LIDOCAINE 1% MDV 20ML VIAL As Ordered ONE; -TRIAMCINOLONE ACETONIDE SUSP 40MG/ML 1ML VIAL As Ordered ONE
== END ==
LOC: M PAIN 08:45
PROVIDERS: ATTEND Nurse Practitioner Family
DX: G57.91 Unspecified mononeuropathy of right lower limb (principal); G89.29 Other chronic pain; G47.33 Obstructive sleep apnea (adult) (pediatric); I10 Essential (primary) hypertension; Z86.59 Personal history of other mental and behavioral disorders; Z88.8 Allergy status to other drugs, medicaments and biological substances; Z79.82 Long term (current) use of aspirin; Z79.891 Long term (current) use of opiate analgesic; Z79.899 Other long term (current) drug therapy

== ENCOUNTER → 2022-12-29 | Outpatient (CLI) | payer MEDICARE | LOC: M PAIN 09:00 | PROVIDERS: ATTEND Nurse Practitioner Family | DX: G57.91 Unspecified mononeuropathy of right lower limb (principal); G47.33 Obstructive sleep apnea (adult) (pediatric); I10 Essential (primary) hypertension; F32.9 Major depressive disorder, single episode, unspecified; F41.0 Panic disorder [episodic paroxysmal anxiety]; M54.40 Lumbago with sciatica, unspecified side; E78.1 Pure hyperglyceridemia; Z79.891 Long term (current) use of opiate analgesic; Z79.899 Other long term (current) drug therapy; J30.81 Allergic rhinitis due to animal (cat) (dog) hair and dander; Z88.8 Allergy status to other drugs, medicaments and biological substances ==

== ENCOUNTER → 2023-01-13 | Outpatient (CLI) | payer MEDICARE ==
[~2023-01-13] MED LIST changes: +ISOVUE-300 61% 100ML VIAL As Ordered ONE; +LIDOCAINE 1% MDV 20ML VIAL As Ordered ONE; +TRIAMCINOLONE ACETONIDE SUSP 40MG/ML 1ML VIAL As Ordered ONE
== END ==
LOC: M RAD 12:20
PROVIDERS: ATTEND Orthopaedic Surgery
DX: M25.511 Pain in right shoulder (principal)
CPT/HCPCS: 20610; 77002; J3301; Q9967

== ENCOUNTER → 2023-02-24 | Outpatient (CLI) | payer MEDICARE ==
[~2023-02-24] MED LIST changes: -ISOVUE-300 61% 100ML VIAL As Ordered ONE; -LIDOCAINE 1% MDV 20ML VIAL As Ordered ONE; -TRIAMCINOLONE ACETONIDE SUSP 40MG/ML 1ML VIAL As Ordered ONE
== END ==
LOC: M PLAIMG 10:24
PROVIDERS: ATTEND Psychiatry & Neurology Neurology
DX: G43.109 Migraine with aura, not intractable, without status migrainosus (principal); R42 Dizziness and giddiness; H53.8 Other visual disturbances

== ENCOUNTER → 2023-02-26 | Outpatient (CLI) | payer MEDICARE | LOC: M PAIN 09:00 | PROVIDERS: ATTEND Nurse Practitioner Family | DX: G57.91 Unspecified mononeuropathy of right lower limb (principal); G89.29 Other chronic pain; G47.33 Obstructive sleep apnea (adult) (pediatric); I10 Essential (primary) hypertension; Z86.59 Personal history of other mental and behavioral disorders; Z88.8 Allergy status to other drugs, medicaments and biological substances; Z79.82 Long term (current) use of aspirin; Z79.899 Other long term (current) drug therapy ==

== ENCOUNTER → 2023-03-16 | Outpatient (CLI) | payer MEDICARE ==
[2023-03-16 15:12] LABS: BASO % 0.2 % (0.0-1.0); EOS % 0.5 % (0.0-3.0); HEMATOCRIT 47.1 % (42.0-52.0); HEMOGLOBIN 15.4 g/dl (13.5-17.5); LYMPH # 1.6 10^3/uL (1.5-5.0); LYMPH % 20.1 % (24.0-44.0); MEAN CORPUSCULAR HEMOGLOBIN 31.9 pg (27.0-33.0); MEAN CORPUSCULAR HGB CONC 32.7 g/dl (32.0-36.5); MEAN CORPUSCULAR VOLUME 97.5 fl (80.0-96.0); MONO # 0.6 10^3/uL (0.0-0.8); MONO % 7.6 % (2.0-8.0); NEUTROPHILS # 5.8 10^3/uL (1.5-8.5); NEUTROPHILS % 71.1 % (36.0-66.0); PLATELET COUNT, AUTOMATED 168 10^3/uL (150-450); RED BLOOD COUNT 4.83 10^6/uL (4.30-6.10); WHITE BLOOD COUNT 8.1 10^3/uL (4.0-10.0)
[2023-03-16 15:49] LABS: CREATININE, URINE 146.4 MG/DL
[2023-03-16 15:50] LABS: MAU/CREAT RATIO 2.7 MCG/MG (0.0-30.0)
[2023-03-16 15:52] LABS: ALBUMIN 3.9 G/DL (3.2-5.2); ALKALINE PHOSPHATASE 53 U/L (46-116); ALT/SGPT 36 U/L (7.0-40); AST/SGOT 13 U/L (<34); BILIRUBIN,TOTAL 1.5 MG/DL (0.3-1.2); BLOOD UREA NITROGEN 20 MG/DL (9-23); CALCIUM LEVEL 8.7 MG/DL (8.3-10.6); CARBON DIOXIDE LEVEL 30 MMOL/L (20-31); CHLORIDE LEVEL 105 MMOL/L (98-107); CREATININE FOR GFR 0.89 MG/DL (0.70-1.30); GLOMERULAR FILTRATION RATE > 60.0 (>49); GLUCOSE, FASTING 83 MG/DL (74-106); POTASSIUM SERUM 4.2 MMOL/L (3.5-5.1); SODIUM LEVEL 140 MMOL/L (136-145); TOTAL PROTEIN 6.4 G/DL (5.7-8.2)
== END ==
LOC: M LAB 13:21
PROVIDERS: ATTEND Student in an Organized Health Care Education/Training Program
DX: E27.3 Drug-induced adrenocortical insufficiency (principal); G43.009 Migraine without aura, not intractable, without status migrainosus; I10 Essential (primary) hypertension

== ENCOUNTER → 2023-04-08 | Outpatient (CLI) | payer MEDICARE ==
[~2023-04-08] MED LIST changes: +ISOVUE-M 300 61% 15ML VIAL As Ordered ONE; +LIDOCAINE 1% SDV 30ML VIAL As Ordered ONE; +TRIAMCINOLONE ACETONIDE SUSP 40MG/ML 1ML VIAL As Ordered ONE; +diazePAM 5MG TABLET As Ordered ONE; +diphenhydrAMINE 25MG CAP As Ordered ONE; +oxyCODONE 5MG TAB As Ordered ONE
== END ==
LOC: M PAIN 09:30
PROVIDERS: ATTEND Anesthesiology
DX: G57.91 Unspecified mononeuropathy of right lower limb (principal); G47.33 Obstructive sleep apnea (adult) (pediatric); I10 Essential (primary) hypertension; Z86.59 Personal history of other mental and behavioral disorders; Z88.8 Allergy status to other drugs, medicaments and biological substances; Z79.82 Long term (current) use of aspirin; Z79.891 Long term (current) use of opiate analgesic; Z79.899 Other long term (current) drug therapy
CPT/HCPCS: 64425; J3301; Q9967

== ENCOUNTER → 2023-04-14 | Outpatient (CLI) | payer MEDICARE ==
[~2023-04-14] MED LIST changes: -ISOVUE-M 300 61% 15ML VIAL As Ordered ONE; -LIDOCAINE 1% SDV 30ML VIAL As Ordered ONE; -TRIAMCINOLONE ACETONIDE SUSP 40MG/ML 1ML VIAL As Ordered ONE; -diazePAM 5MG TABLET As Ordered ONE; -diphenhydrAMINE 25MG CAP As Ordered ONE; -oxyCODONE 5MG TAB As Ordered ONE
== END ==
LOC: M PAIN 11:30
PROVIDERS: ATTEND Anesthesiology
DX: G57.80 Other specified mononeuropathies of unspecified lower limb (principal); G89.29 Other chronic pain; G90.521 Complex regional pain syndrome I of right lower limb; G47.33 Obstructive sleep apnea (adult) (pediatric); I10 Essential (primary) hypertension; Z86.59 Personal history of other mental and behavioral disorders; Z88.8 Allergy status to other drugs, medicaments and biological substances; Z79.82 Long term (current) use of aspirin; Z79.891 Long term (current) use of opiate analgesic; Z79.899 Other long term (current) drug therapy

== ENCOUNTER → 2023-05-14 | Outpatient (REF) | payer MEDICARE | LOC: M SFHCDERM 17:30 | PROVIDERS: ATTEND Nurse Practitioner Family | DX: L57.8 Other skin changes due to chronic exposure to nonionizing radiation (principal) ==

== ENCOUNTER → 2023-06-14 | Outpatient (CLI) | payer MEDICARE ==
[~2023-06-14] MED LIST changes: -PREG200C PO; +PREG200C2 PO
== END ==
LOC: M PAIN 14:30
PROVIDERS: ATTEND Anesthesiology
DX: G57.91 Unspecified mononeuropathy of right lower limb (principal); G90.521 Complex regional pain syndrome I of right lower limb; G47.33 Obstructive sleep apnea (adult) (pediatric); I10 Essential (primary) hypertension; F32.9 Major depressive disorder, single episode, unspecified; F41.0 Panic disorder [episodic paroxysmal anxiety]; M54.50 Low back pain, unspecified; E78.1 Pure hyperglyceridemia; Z79.891 Long term (current) use of opiate analgesic; Z79.899 Other long term (current) drug therapy; Z88.8 Allergy status to other drugs, medicaments and biological substances; J30.81 Allergic rhinitis due to animal (cat) (dog) hair and dander

== ENCOUNTER → 2023-07-01 | Outpatient (CLI) | payer MEDICARE | LOC: M PAIN 09:30 | PROVIDERS: ATTEND Nurse Practitioner Family | DX: G57.90 Unspecified mononeuropathy of unspecified lower limb (principal); G89.29 Other chronic pain; G47.33 Obstructive sleep apnea (adult) (pediatric); I10 Essential (primary) hypertension; F32.9 Major depressive disorder, single episode, unspecified; F41.0 Panic disorder [episodic paroxysmal anxiety]; M54.40 Lumbago with sciatica, unspecified side; E78.1 Pure hyperglyceridemia; Z79.82 Long term (current) use of aspirin; Z79.891 Long term (current) use of opiate analgesic; Z79.899 Other long term (current) drug therapy; Z88.8 Allergy status to other drugs, medicaments and biological substances; J30.81 Allergic rhinitis due to animal (cat) (dog) hair and dander ==

== ENCOUNTER → 2023-07-08 | Outpatient (REF) | payer MEDICARE | LOC: M SFHCPLAZ 10:26 | PROVIDERS: ATTEND Family Medicine | DX: G44.89 Other headache syndrome (principal); Z12.5 Encounter for screening for malignant neoplasm of prostate; E78.1 Pure hyperglyceridemia ==

== ENCOUNTER → 2023-07-08 | Outpatient (CLI) | payer MEDICARE ==
[2023-07-08 16:18] LABS: CHOLESTEROL RISK RATIO 3.23 (<5); HDL CHOLESTEROL 32.8 MG/DL (>40); LDL CHOLESTEROL 28.2 MG/DL (<100); NON-HDL-C 73.2 MG/DL
== END ==
LOC: M PLALAB 10:49
PROVIDERS: ATTEND Family Medicine
DX: G44.89 Other headache syndrome (principal); E78.1 Pure hyperglyceridemia; Z12.5 Encounter for screening for malignant neoplasm of prostate

== ENCOUNTER → 2023-07-19 | Outpatient (CLI) | payer MEDICARE ==
[~2023-07-19] MED LIST changes: +ISOVUE-300 61% 100ML VIAL As Ordered ONE; +LIDOCAINE 1% MDV 20ML VIAL As Ordered ONE; +TRIAMCINOLONE ACETONIDE SUSP 40MG/ML 1ML VIAL As Ordered ONE
== END ==
LOC: M RAD 14:41
PROVIDERS: ATTEND Orthopaedic Surgery
DX: M25.511 Pain in right shoulder (principal); M19.011 Primary osteoarthritis, right shoulder
CPT/HCPCS: 20610; 77002; J3301; Q9967

== ENCOUNTER → 2023-10-06 | Outpatient (CLI) | payer MEDICARE ==
[~2023-10-06] MED LIST changes: -ISOVUE-300 61% 100ML VIAL As Ordered ONE; -LIDOCAINE 1% MDV 20ML VIAL As Ordered ONE; -TRIAMCINOLONE ACETONIDE SUSP 40MG/ML 1ML VIAL As Ordered ONE
[2023-10-06 13:22] LABS: HEMATOCRIT 44.1 % (42.0-52.0); HEMOGLOBIN 14.7 g/dl (13.5-17.5); MEAN CORPUSCULAR HEMOGLOBIN 31.9 pg (27.0-33.0); MEAN CORPUSCULAR HGB CONC 33.3 g/dl (32.0-36.5); MEAN CORPUSCULAR VOLUME 95.7 fl (80.0-96.0); PLATELET COUNT, AUTOMATED 176 10^3/uL (150-450); RED BLOOD COUNT 4.61 10^6/uL (4.30-6.10); WHITE BLOOD COUNT 6.9 10^3/uL (4.0-10.0)
[2023-10-06 13:44] LABS: LIPASE 40 U/L (12-53)
[2023-10-06 13:46] LABS: ALBUMIN 3.7 G/DL (3.2-5.2); ALKALINE PHOSPHATASE 53 U/L (46-116); ALT/SGPT 32 U/L (7.0-40); AST/SGOT 23 U/L (<34); BILIRUBIN,TOTAL 1.3 MG/DL (0.3-1.2); BLOOD UREA NITROGEN 18 MG/DL (9-23); CALCIUM LEVEL 8.4 MG/DL (8.3-10.6); CARBON DIOXIDE LEVEL 30 MMOL/L (20-31); CHLORIDE LEVEL 107 MMOL/L (98-107); CREATININE FOR GFR 0.86 MG/DL (0.70-1.30); GLOMERULAR FILTRATION RATE > 60.0 (>49); GLUCOSE, FASTING 87 MG/DL (74-106); POTASSIUM SERUM 4.8 MMOL/L (3.5-5.1); SODIUM LEVEL 141 MMOL/L (136-145); TOTAL PROTEIN 6.1 G/DL (5.7-8.2)
== END ==
LOC: M LAB 12:49
PROVIDERS: ATTEND Family Medicine
DX: R10.13 Epigastric pain (principal); F33.41 Major depressive disorder, recurrent, in partial remission; G89.4 Chronic pain syndrome

== ENCOUNTER → 2023-10-06 | Outpatient (CLI) | payer MEDICARE | LOC: M PAIN 16:00 | PROVIDERS: ATTEND Anesthesiology | DX: M79.2 Neuralgia and neuritis, unspecified (principal); G90.521 Complex regional pain syndrome I of right lower limb; M54.50 Low back pain, unspecified; Z79.82 Long term (current) use of aspirin; Z79.891 Long term (current) use of opiate analgesic; Z79.899 Other long term (current) drug therapy; Z88.8 Allergy status to other drugs, medicaments and biological substances ==

== ENCOUNTER → 2023-11-10 | Outpatient (CLI) | payer MEDICARE ==
[~2023-11-10] MED LIST changes: +ISOVUE-300 61% 100ML VIAL As Ordered ONE; +LIDOCAINE 1% MDV 20ML VIAL As Ordered ONE; +TRIAMCINOLONE ACETONIDE SUSP 40MG/ML 1ML VIAL As Ordered ONE
== END ==
LOC: M RAD 13:50
PROVIDERS: ATTEND Orthopaedic Surgery
DX: M25.511 Pain in right shoulder (principal); M19.011 Primary osteoarthritis, right shoulder
CPT/HCPCS: 20610; 77002; J3301; Q9967

== ENCOUNTER 2023-12-27 08:17 | Day surgery (SDC) | payer MEDICARE ==
[~2023-12-27] VITALS: Ht 170.2 cm; Wt 83.0 kg
[~2023-12-27 08:17] MED LIST changes: -ISOVUE-300 61% 100ML VIAL As Ordered ONE; -LIDOCAINE 1% MDV 20ML VIAL As Ordered ONE; -TRIAMCINOLONE ACETONIDE SUSP 40MG/ML 1ML VIAL As Ordered ONE; +XTAM18CA PO; +fentaNYL 100 MCG/2 ML INJECTION As Ordered ONE
[2023-12-27] MEDS: NS 1,000 ML IV ONE (08:42)
[2023-12-27 10:54] VITALS: TEMP 97.8
[2023-12-27 11:20] VITALS: BP 139/87; O2SAT 100
[2023-12-27] MEDS ORDERED: LIDOCAINE 2% INJ 100 MG/5 ML SYRINGE As Ordered ONE (14:55)
[2023-12-27] MEDS ORDERED: propofoL 200 MG/20 ML VIAL As Ordered ONE (14:55)
== END 2023-12-27 11:34 | disposition home or self-care (01) ==
LOC: M OPP 08:17
PROVIDERS: ATTEND Internal Medicine Gastroenterology
DX: Z12.11 Encounter for screening for malignant neoplasm of colon (principal); K64.0 First degree hemorrhoids; K57.30 Diverticulosis of large intestine without perforation or abscess without bleeding; K31.89 Other diseases of stomach and duodenum; R12 Heartburn; G47.30 Sleep apnea, unspecified; Z99.89 Dependence on other enabling machines and devices; Z79.02 Long term (current) use of antithrombotics/antiplatelets; Z79.82 Long term (current) use of aspirin; Z79.891 Long term (current) use of opiate analgesic; Z79.899 Other long term (current) drug therapy; Z88.8 Allergy status to other drugs, medicaments and biological substances
CPT/HCPCS: 43239; 88305; G0121; J3010

== ENCOUNTER → 2024-01-13 | Outpatient (CLI) | payer MEDICARE ==
[~2024-01-13] MED LIST changes: -fentaNYL 100 MCG/2 ML INJECTION As Ordered ONE
== END ==
LOC: M PLALAB 10:20
PROVIDERS: ATTEND Family Medicine
DX: B35.1 Tinea unguium (principal)

== ENCOUNTER → 2024-02-01 | Outpatient (CLI) | payer MEDICARE | LOC: M PAIN 09:30 | PROVIDERS: ATTEND Nurse Practitioner Family | DX: G57.91 Unspecified mononeuropathy of right lower limb (principal); G90.521 Complex regional pain syndrome I of right lower limb; G47.33 Obstructive sleep apnea (adult) (pediatric); I10 Essential (primary) hypertension; F32.9 Major depressive disorder, single episode, unspecified; F41.0 Panic disorder [episodic paroxysmal anxiety]; M54.40 Lumbago with sciatica, unspecified side; E87.1 Hypo-osmolality and hyponatremia; Z79.82 Long term (current) use of aspirin; Z79.891 Long term (current) use of opiate analgesic; Z79.899 Other long term (current) drug therapy; Z88.8 Allergy status to other drugs, medicaments and biological substances ==

== ENCOUNTER → 2024-02-16 | Outpatient (CLI) | payer MEDICARE | LOC: M ADAMS 13:43 | PROVIDERS: ATTEND Family Medicine | DX: R09.89 Other specified symptoms and signs involving the circulatory and respiratory systems (principal) ==

== ENCOUNTER → 2024-02-16 | Outpatient (REF) | payer MEDICARE | LOC: M SFHCADAM 13:39 | PROVIDERS: ATTEND Family Medicine | DX: R09.89 Other specified symptoms and signs involving the circulatory and respiratory systems (principal) ==

== ENCOUNTER → 2024-03-21 | Outpatient (CLI) | payer MEDICARE ==
[~2024-03-21] MED LIST changes: +ISOVUE-300 61% 100ML VIAL As Ordered ONE; +LIDOCAINE 1% MDV 20ML VIAL As Ordered ONE; +TRIAMCINOLONE ACETONIDE SUSP 40MG/ML 1ML VIAL As Ordered ONE
== END ==
LOC: M RAD 15:07
PROVIDERS: ATTEND Orthopaedic Surgery
DX: M19.011 Primary osteoarthritis, right shoulder (principal); M75.41 Impingement syndrome of right shoulder
CPT/HCPCS: 20610; 77002; J3301; Q9967

== ENCOUNTER → 2024-05-05 | Outpatient (CLI) | payer MEDICARE ==
[~2024-05-05] MED LIST changes: -ISOVUE-300 61% 100ML VIAL As Ordered ONE; -LIDOCAINE 1% MDV 20ML VIAL As Ordered ONE; -TRIAMCINOLONE ACETONIDE SUSP 40MG/ML 1ML VIAL As Ordered ONE
[2024-05-05 09:44] LABS: BASO % 0.5 % (0.0-1.0); EOS # 0.1 10^3/uL (0.0-0.5); EOS % 1.1 % (0.0-3.0); HEMATOCRIT 44.3 % (42.0-52.0); HEMOGLOBIN 14.8 g/dl (13.5-17.5); LYMPH # 1.6 10^3/uL (1.5-5.0); LYMPH % 25.2 % (24.0-44.0); MEAN CORPUSCULAR HEMOGLOBIN 32.1 pg (27.0-33.0); MEAN CORPUSCULAR HGB CONC 33.4 g/dl (32.0-36.5); MEAN CORPUSCULAR VOLUME 96.1 fl (80.0-96.0); MONO # 0.6 10^3/uL (0.0-0.8); MONO % 10.1 % (2.0-8.0); NEUTROPHILS # 3.9 10^3/uL (1.5-8.5); NEUTROPHILS % 62.8 % (36.0-66.0); PLATELET COUNT, AUTOMATED 171 10^3/uL (150-450); RED BLOOD COUNT 4.61 10^6/uL (4.30-6.10); WHITE BLOOD COUNT 6.2 10^3/uL (4.0-10.0)
== END ==
LOC: M LAB 08:19
PROVIDERS: ATTEND Internal Medicine Endocrinology, Diabetes & Metabolism
DX: E23.0 Hypopituitarism (principal); Z79.899 Other long term (current) drug therapy

== ENCOUNTER → 2024-07-21 | Outpatient (CLI) | payer MEDICARE ==
[~2024-07-21] MED LIST changes: +LIDOCAINE 1% SDV 30ML VIAL As Ordered ONE; +TRIAMCINOLONE ACETONIDE SUSP 40MG/ML 1ML VIAL As Ordered ONE; +diazePAM 5MG TABLET As Ordered ONE; +diphenhydrAMINE 25MG CAP As Ordered ONE; +oxyCODONE 5MG TAB As Ordered ONE
== END ==
LOC: M PAIN 08:15
PROVIDERS: ATTEND Anesthesiology
DX: G57.91 Unspecified mononeuropathy of right lower limb (principal); G47.33 Obstructive sleep apnea (adult) (pediatric); I10 Essential (primary) hypertension; F41.0 Panic disorder [episodic paroxysmal anxiety]; M54.50 Low back pain, unspecified; E78.1 Pure hyperglyceridemia; Z79.82 Long term (current) use of aspirin; Z79.899 Other long term (current) drug therapy; Z79.891 Long term (current) use of opiate analgesic; Z88.8 Allergy status to other drugs, medicaments and biological substances
CPT/HCPCS: 64425; J0665; J3301

== ENCOUNTER → 2024-07-26 | Outpatient (CLI) | payer MEDICARE ==
[~2024-07-26] MED LIST changes: +ISOVUE-300 61% 100ML VIAL As Ordered ONE; +LIDOCAINE 1% MDV 20ML VIAL As Ordered ONE; -LIDOCAINE 1% SDV 30ML VIAL As Ordered ONE; -diazePAM 5MG TABLET As Ordered ONE; -diphenhydrAMINE 25MG CAP As Ordered ONE; -oxyCODONE 5MG TAB As Ordered ONE
== END ==
LOC: M RAD 12:50
PROVIDERS: ATTEND Orthopaedic Surgery
DX: M19.011 Primary osteoarthritis, right shoulder (principal); M75.41 Impingement syndrome of right shoulder
CPT/HCPCS: 20610; 77002; J3301; Q9967

== ENCOUNTER → 2024-09-07 | Outpatient (CLI) | payer MEDICARE ==
[~2024-09-07] MED LIST changes: +DESI25TA PO; -DESI25TA59 PO; -ISOVUE-300 61% 100ML VIAL As Ordered ONE; -LIDOCAINE 1% MDV 20ML VIAL As Ordered ONE; -TRIAMCINOLONE ACETONIDE SUSP 40MG/ML 1ML VIAL As Ordered ONE
== END ==
LOC: M SOG 07:50
PROVIDERS: ATTEND Physician Assistant
DX: M54.50 Low back pain, unspecified (principal); M47.816 Spondylosis without myelopathy or radiculopathy, lumbar region; M47.817 Spondylosis without myelopathy or radiculopathy, lumbosacral region

== ENCOUNTER → 2024-09-28 | Outpatient (CLI) | payer MEDICARE | LOC: M RAD 06:57 | PROVIDERS: ATTEND Physician Assistant | DX: M54.41 Lumbago with sciatica, right side (principal); M51.360 Other intervertebral disc degeneration, lumbar region with discogenic back pain only ==

== ENCOUNTER → 2024-11-02 | Outpatient (CLI) | payer MEDICARE | LOC: M PAIN 10:15 | PROVIDERS: ATTEND Nurse Practitioner Family | DX: G57.91 Unspecified mononeuropathy of right lower limb (principal); G47.33 Obstructive sleep apnea (adult) (pediatric); I10 Essential (primary) hypertension; M54.50 Low back pain, unspecified; E78.1 Pure hyperglyceridemia; Z79.82 Long term (current) use of aspirin; Z79.899 Other long term (current) drug therapy; Z79.891 Long term (current) use of opiate analgesic; Z88.8 Allergy status to other drugs, medicaments and biological substances ==

== ENCOUNTER → 2024-11-14 | Outpatient (CLI) | payer MEDICARE ==
[2024-11-14 18:11] LABS: BASO % 0.2 % (0.0-1.0); EOS % 0.3 % (0.0-3.0); HEMATOCRIT 47.3 % (42.0-52.0); HEMOGLOBIN 15.8 g/dl (13.5-17.5); LYMPH % 19.9 % (24.0-44.0); MEAN CORPUSCULAR HEMOGLOBIN 32.3 pg (27.0-33.0); MEAN CORPUSCULAR HGB CONC 33.4 g/dl (32.0-36.5); MEAN CORPUSCULAR VOLUME 96.7 fl (80.0-96.0); MONO # 0.8 10^3/uL (0.0-0.8); MONO % 7.8 % (2.0-8.0); NEUTROPHILS % 71.4 % (36.0-66.0); PLATELET COUNT, AUTOMATED 192 10^3/uL (150-450); RED BLOOD COUNT 4.89 10^6/uL (4.30-6.10); WHITE BLOOD COUNT 9.8 10^3/uL (4.0-10.0)
[2024-11-14 18:26] LABS: ERYTHROCYTE SEDIMENTATION RATE 2 mm/hr (0-20)
[2024-11-14 18:32] LABS: C REACTIVE PROTEIN QUANTITATIV < 0.50 MG/DL (<1.0)
[2024-11-14 18:33] LABS: BLOOD UREA NITROGEN 21 MG/DL (9-23); CALCIUM LEVEL 9.5 MG/DL (8.3-10.6); CARBON DIOXIDE LEVEL 33 MMOL/L (20-31); CHLORIDE LEVEL 100 MMOL/L (98-107); CHOLESTEROL LEVEL 113 MG/DL (<200); CHOLESTEROL RISK RATIO 2.89 (<5); CREATININE FOR GFR 0.79 MG/DL (0.70-1.30); FREE T4 1.15 NG/DL (0.89-1.76); GLOMERULAR FILTRATION RATE > 60.0 (>49); GLUCOSE, FASTING 76 MG/DL (74-106); HDL CHOLESTEROL 39.1 MG/DL (>40); IRON (FE) 109 UG/DL (65-175); LDL CHOLESTEROL 9.1 MG/DL (<100); MAGNESIUM LEVEL 1.9 MG/DL (1.8-2.4); NON-HDL-C 73.9 MG/DL; POTASSIUM SERUM 4.5 MMOL/L (3.5-5.1); SODIUM LEVEL 141 MMOL/L (136-145); TRIGLYCERIDES LEVEL 324 MG/DL (<150)
[2024-11-14 18:34] LABS: TESTOSTERONE 438 NG/DL (241-827)
[2024-11-14 18:35] LABS: CPK CREATINE PHOSPHOKINASE 103 U/L (46-171); TOTAL 25(OH) VITAMIN D 49.8 NG/ML (20.0-100.0); VITAMIN B12 LEVEL 1069 PG/ML (211-911)
[2024-11-16 11:12] LABS: C-PEPTIDE 4.87 ng/mL (0.80-3.85)
[2024-11-18 20:07] LABS: LYME TOTAL ANTIBODY CIA <= 0.90 Index (<=0.90)
== END ==
LOC: M PLALAB 14:48
PROVIDERS: ATTEND Student in an Organized Health Care Education/Training Program
DX: R53.83 Other fatigue (principal)

== ENCOUNTER → 2024-11-27 | Outpatient (CLI) | payer MEDICARE | LOC: M WHC 08:29 | PROVIDERS: ATTEND Family Medicine | DX: Z13.820 Encounter for screening for osteoporosis (principal); T40 Poisoning by, adverse effect of and underdosing of narcotics and psychodysleptics [hallucinogens]; E27.3 Drug-induced adrenocortical insufficiency; M85.89 Other specified disorders of bone density and structure, multiple sites; E23.0 Hypopituitarism ==

== ENCOUNTER → 2024-11-27 | Outpatient (CLI) | payer MEDICARE ==
[2024-11-27 11:30] LABS: HEMATOCRIT 46.7 % (42.0-52.0); HEMOGLOBIN 15.5 g/dl (13.5-17.5); MEAN CORPUSCULAR HEMOGLOBIN 32.4 pg (27.0-33.0); MEAN CORPUSCULAR HGB CONC 33.2 g/dl (32.0-36.5); MEAN CORPUSCULAR VOLUME 97.7 fl (80.0-96.0); PLATELET COUNT, AUTOMATED 203 10^3/uL (150-450); RED BLOOD COUNT 4.78 10^6/uL (4.30-6.10)
[2024-11-27 12:04] LABS: FREE T4 1.17 NG/DL (0.89-1.76); TESTOSTERONE 507 NG/DL (241-827)
[2024-11-27 12:10] LABS: ALBUMIN 3.6 G/DL (3.2-5.2); ALKALINE PHOSPHATASE 52 U/L (40-129); ALT/SGPT 26 U/L (7.0-40); AST/SGOT 15 U/L (<34); BILIRUBIN,TOTAL 1.1 MG/DL (0.3-1.2); BLOOD UREA NITROGEN 15 MG/DL (9-23); CALCIUM LEVEL 8.8 MG/DL (8.3-10.6); CARBON DIOXIDE LEVEL 31 MMOL/L (20-31); CHLORIDE LEVEL 104 MMOL/L (98-107); CREATININE FOR GFR 0.95 MG/DL (0.70-1.30); GLOMERULAR FILTRATION RATE > 60.0 (>49); GLUCOSE, FASTING 95 MG/DL (74-106); POTASSIUM SERUM 4.2 MMOL/L (3.5-5.1); SODIUM LEVEL 144 MMOL/L (136-145); TOTAL PROTEIN 6.5 G/DL (5.7-8.2)
== END ==
LOC: M PLALAB 08:46
PROVIDERS: ATTEND Internal Medicine Endocrinology, Diabetes & Metabolism
DX: E23.0 Hypopituitarism (principal)

== ENCOUNTER → 2025-01-05 | Outpatient (CLI) | payer MEDICARE | LOC: M SOG 07:53 | PROVIDERS: ATTEND Physician Assistant | DX: M25.511 Pain in right shoulder (principal) ==

== ENCOUNTER → 2025-01-12 | Outpatient (CLI) | payer MEDICARE ==
[2025-01-12 13:15] LABS: ALBUMIN 3.8 G/DL (3.2-5.2); ALKALINE PHOSPHATASE 55 U/L (40-129); ALT/SGPT 29 U/L (7.0-40); AST/SGOT 26 U/L (<34); BASO % 0.4 % (0.0-1.0); BILIRUBIN,TOTAL 1.3 MG/DL (0.3-1.2); BLOOD UREA NITROGEN 17 MG/DL (9-23); CALCIUM LEVEL 8.6 MG/DL (8.3-10.6); CARBON DIOXIDE LEVEL 33 MMOL/L (20-31); CHLORIDE LEVEL 102 MMOL/L (98-107); CREATININE FOR GFR 0.88 MG/DL (0.70-1.30); EOS # 0.1 10^3/uL (0.0-0.5); GLOMERULAR FILTRATION RATE > 90.0 (>49); GLUCOSE, FASTING 84 MG/DL (74-106); HEMATOCRIT 43.9 % (42.0-52.0); HEMOGLOBIN 14.5 g/dl (13.5-17.5); INR 0.9; LYMPH # 1.7 10^3/uL (1.5-5.0); LYMPH % 24.3 % (24.0-44.0); MEAN CORPUSCULAR HEMOGLOBIN 31.7 pg (27.0-33.0); MEAN CORPUSCULAR VOLUME 96.1 fl (80.0-96.0); MONO # 0.5 10^3/uL (0.0-0.8); MONO % 7.2 % (2.0-8.0); NEUTROPHILS # 4.6 10^3/uL (1.5-8.5); NEUTROPHILS % 66.8 % (36.0-66.0); PLATELET COUNT, AUTOMATED 169 10^3/uL (150-450); POTASSIUM SERUM 4.6 MMOL/L (3.5-5.1); PROTHROMBIN TIME 12.5 SECONDS (12.5-14.5); RED BLOOD COUNT 4.57 10^6/uL (4.30-6.10); SODIUM LEVEL 139 MMOL/L (136-145); TOTAL PROTEIN 6.1 G/DL (5.7-8.2); WHITE BLOOD COUNT 6.9 10^3/uL (4.0-10.0)
== END ==
LOC: M PLALAB 11:25
PROVIDERS: ATTEND Family Medicine
DX: M48.061 Spinal stenosis, lumbar region without neurogenic claudication (principal); G47.33 Obstructive sleep apnea (adult) (pediatric); E27.3 Drug-induced adrenocortical insufficiency; Z01.818 Encounter for other preprocedural examination

== ENCOUNTER → 2025-01-20 | Outpatient (CLI) | payer MEDICARE | LOC: M RAD 14:35 | PROVIDERS: ATTEND Physician Assistant | DX: M19.011 Primary osteoarthritis, right shoulder (principal) ==

== ENCOUNTER → 2025-05-08 | Outpatient (CLI) | payer MEDICARE ==
[~2025-05-08] MED LIST changes: -AMBI5TAB PO; +DESI10TA28 PO; -FLOM0.4C39 PO; +HYDR-4467; +INDO50CA91 PO; +LISI40TA10 PO; +OXYC1TAB23 PO; +TAMS-18 PO; +XTAM13.5 PO; +ZOLP-532 PO
[2025-05-08 17:10] LABS: C REACTIVE PROTEIN QUANTITATIV < 0.50 MG/DL (<1.0)
[2025-05-08 17:11] LABS: VITAMIN B12 LEVEL 1709 PG/ML (211-911)
[2025-05-08 17:14] LABS: BASO # 0.0 10^3/uL (0.0-0.2); BASO % 0.3 % (0.0-1.0); EOS # 0.1 10^3/uL (0.0-0.5); EOS % 0.6 % (0.0-3.0); LYMPH # 1.1 10^3/uL (1.5-5.0); LYMPH % 12.8 % (24.0-44.0); MONO # 0.5 10^3/uL (0.0-0.8); MONO % 5.9 % (2.0-8.0); NEUTROPHILS # 6.9 10^3/uL (1.5-8.5); NEUTROPHILS % 79.9 % (36.0-66.0); PLATELET COUNT, AUTOMATED 201 10^3/uL (150-450)
[2025-05-08 17:23] LABS: ERYTHROCYTE SEDIMENTATION RATE 2 mm/hr (0-20)
[2025-05-14 02:02] LABS: BORRELIA SPECIES DNA NOT DETECTED (NOT DETECT)
== END ==
LOC: M PLALAB 15:22
PROVIDERS: ATTEND Student in an Organized Health Care Education/Training Program
DX: M19.041 Primary osteoarthritis, right hand (principal); M79.641 Pain in right hand

== ENCOUNTER 2025-05-10 11:58 | Emergency (ER) | payer MEDICARE ==
[~2025-05-10] VITALS: Ht 170.2 cm; Wt 88.3 kg
[~2025-05-10 11:58] MED LIST changes: -DESI10TA28 PO; -HYDR-4467; -INDO50CA91 PO; -LISI40TA10 PO; -OXYC1TAB23 PO; -XTAM13.5 PO
[2025-05-10] MEDS ORDERED: HYDR-4467 (12:13)
[2025-05-10] MEDS ORDERED: DESI10TA28 PO (12:13)
[2025-05-10] MEDS ORDERED: XTAM13.5 PO (12:13)
[2025-05-10] MEDS ORDERED: OXYC1TAB23 PO (12:13)
[2025-05-10] MEDS ORDERED: LISI40TA10 PO (12:13)
[2025-05-10] MEDS: INDOMETHACIN 25 MG CAP PO ONE (13:20)
[2025-05-10] MEDS ORDERED: INDO50CA91 PO (14:13)
[2025-05-10 14:17] VITALS: BP 135/94; TEMP 97.2; O2SAT 98
== END 2025-05-10 14:23 | disposition home or self-care (01) ==
LOC: M ED 11:58
DX: M19.041 Primary osteoarthritis, right hand (principal); I10 Essential (primary) hypertension; E78.5 Hyperlipidemia, unspecified; Z79.82 Long term (current) use of aspirin; Z79.899 Other long term (current) drug therapy; Z88.8 Allergy status to other drugs, medicaments and biological substances

== ENCOUNTER → 2025-06-12 | Outpatient (REF) | payer MEDICARE ==
[~2025-06-12] MED LIST changes: +DESI10TA28 PO; +HYDR-4467; +INDO50CA91 PO; +LISI40TA10 PO; +OXYC1TAB23 PO; +XTAM13.5 PO; +ZOLP10TA11 PO; -ZOLP10TA2 PO
[2025-06-12 19:45] LABS: RHEUMATOID FACTOR QUANT < 3.5 IU/ML (<14)
[2025-06-12 19:48] LABS: FREE T4 1.17 NG/DL (0.89-1.76)
[2025-06-19 14:28] LABS: LYME TOTAL ANTIBODY CIA <= 0.90 Index (<=0.90)
== END ==
LOC: M SFHCCLAY 11:12
PROVIDERS: ATTEND Physician Assistant
DX: R53.83 Other fatigue (principal); M79.641 Pain in right hand

== ENCOUNTER → 2025-09-26 | Outpatient (CLI) | payer MEDICARE ==
[2025-09-26 12:51] LABS: CREATININE FOR GFR 0.88 MG/DL (0.70-1.30); GLOMERULAR FILTRATION RATE > 90.0 (>49)
== END ==
LOC: M LAB 11:59
PROVIDERS: ATTEND Nurse Practitioner Adult Health
DX: M54.50 Low back pain, unspecified (principal)